=== PATIENT | female | born 1945 | race Caucasian/White ===

== ENCOUNTER 2019-12-21 21:57 | Inpatient (IN) | payer OTHER ==
--- NOTE | 2019-12-21 22:39 | PDOC ---
History of Present Illness - General Chief Complaint: Shortness of Breath Stated Complaint: SOB/CHEST PAIN Time Seen by Provider: 12/21/19 22:25 History Source: Patient - History of Present Illness Initial Comments: 74F PMH RA, HTN presenting with shortness of breath in setting of recent productive cough x4 days. Endorsing pleuritic nonradiating substernal chest pain only with deep breaths. Granddaughter sick at home. Endorses occasional nausea. Denies f/c, dysuria, abd pain. No hx COPD, asthma. Past History - Past Medical History Allergies/Adverse Reactions: Allergies Allergy/AdvReac Type Severity Reaction Status Date / Time No Known Drug Allergies Allergy Verified 12/21/19 22:06 Home Medications: Ambulatory Orders Etanercept [Enbrel Sureclick] 50 mg SQ ASDIR 12/22/19 Folic Acid 1 mg PO DAILY 12/22/19 Ibandronate Sodium [Boniva] 150 mg PO ASDIR 12/22/19 Methotrexate Sodium [Methotrexate] 2.5 mg PO ASDIR 12/22/19 Triamcinolone 0.5% Cream [Aristocort 0.5% Cream -] 1 applic TD BID 12/22/19 Anemia: No Asthma: No Cancer: No Cardiac Disorders: No CVA: No COPD: No CHF: No Dementia: No Diabetes: No GI Disorders: No Disorders: No HTN: Yes Hypercholesterolemia: Yes Liver Disease: No Seizures: Yes Thyroid Disease: No - Surgical History Abdominal Surgery: No Appendectomy: No Cardiac Surgery: No Cholecystectomy: No Lung Surgery: No Neurologic Surgery: No Orthopedic Surgery: No - Immunization History Immunization Up to Date: Yes - Psycho Social/Smoking Cessation Hx Smoking History: Never smoked Have you smoked in the past 12 months: No Hx Alcohol Use: No Drug/Substance Use Hx: No Substance Use Type: None Hx Substance Use Treatment: No Review of Systems - Review of Systems Able to Perform ROS?: Yes Comments:: CONSTITUTIONAL: Denies F / C. Endorses sick contact. HEENT: Denies changes in vision / hearing RESP: Endorses SOB, productive cough CARD: Endorses pleuritic chest pain. Denies GI: Endorses occasional N. Denies V / D, abdominal pain, bloody stool, inability to tolerate PO : Denies dysuria SKIN: Denies rashes NEURO: Denies numbness, tingling, weakness MSK: Denies back pain Is the patient limited Mauritian proficient: Yes *Physical Exam - Vital Signs Last Vital Signs Temp Pulse Resp BP Pulse Ox 96.5 F L 124 H 27 H 150/74 91 L 12/21/19 21:57 12/21/19 21:57 12/21/19 21:57 12/21/19 21:57 12/21/19 21:57 - Physical Exam GEN: Moderate distress. AAOx3. HEENT: NC/AT, EOMI, PERRL. No facial asymmetry. Moist mucous membranes. Normal voice. Supple neck w/ FROM. CV: S1/S2, tachycardic, no m/r/g LUNG: Increased work of breathing, poor/tight air movement b/l. no wheezes. GI: Soft, ndnt, +BS, no guarding, no rebound. MSK: trace LE edema. No obvious deformities of all extremities. SKIN: Warm, dry, no rashes appreciated. PSYCH: Normal mood and affect. NEURO: Moving all extremities well. ED Treatment Course - LABORATORY CBC & Chemistry Diagram: 12/26/19 05:30 12/26/19 05:30 - RADIOLOGY Radiology Studies Ordered: Category Date Time Status CHEST X-RAY PORTABLE* [RAD] Stat Radiology 12/21/19 22:36 Ordered Medical Decision Making - Medical Decision Making 12/21/19 22:37 74F c/o sob and pleuritic chest pain in setting of recent productive cough x 4 days w/ + sick contact at home. DDx - ACS, PNA, URI, flu - cbc, cmp, cardiac - ekg - cxr - duonebs 12/21/19 23:37 Increased work of breathing persists s/p duonebs x2.5 BiPap started 12/22/19 00:00 CXR by ED read - increased markings ?blunting of angles. similar to prior. 12/22/19 00:25 flu neg signed out to PM team with admission as likely dispo Discharge - Discharge Information Problems reviewed: Yes Clinical Impression/Diagnosis: NSTEMI (non-ST elevated myocardial infarction), Shortness of breath Condition: Guarded - Follow up/Referral - Patient Discharge Instructions - Post Discharge Activity
[2019-12-21] MEDS ORDERED: ALBUTEROL SO4 2.5/IPRATROPIUM 0.5 INH SOL 3 ML VIAL.NEB. NEB ONE ×2 (22:41→22:43)
--- NOTE | 2019-12-22 00:16 | PDOC ---
Documentation entered by Terrance Truong SCRIBE, acting as scribe for Nydia Escudero MD. Nydia Escudero MD: This documentation has been prepared by the Dionne pollock Angel, SCRIBE, under my direction and personally reviewed by me in its entirety. I confirm that the documentation accurately reflects all work, treatment, procedures, and medical decision making performed by me. Attending Attestation - Resident Resident Name: Gui Parham - ED Attending Attestation I have performed the following: I have examined & evaluated the patient, The case was reviewed & discussed with the resident, I agree w/resident's findings & plan, Exceptions are as noted - HPI HPI: 12/21/19 23:16 The patient is a 74 year old female with a significant PMH of HTN (no prescribed medication), HLD, Seizures and anemia who presents to the emergency department for SOB, cough and pleuritic chest pain x 4days. The patient states she has a sick family member at home. The patient denies headaches and dizziness. Denies fever, chills, nausea, vomiting, diarrhea and constipation. Allergies: NKDA - Physicial Exam PE: 12/21/19 23:17 GENERAL: Awake, alert, and fully oriented,+hypoxic HEAD: No signs of trauma NECK: Normal ROM, supple, no lymphadenopathy, JVD, or masses LUNGS: +wheezing. + tachypnic. No crackles HEART: +tachy. no murmurs, rubs or gallops ABDOMEN: Soft, nontender, normoactive bowel sounds. No guarding, no rebound. No masses EXTREMITIES: Normal range of motion, no edema. No clubbing or cyanosis. No cords, erythema, or tenderness NEUROLOGICAL: Cranial nerves II through XII grossly intact. SKIN: Warm, Dry, normal turgor, no rashes or lesions noted. - Medical Decision Making 12/22/19 01:11 This 74-year-old female who has been sick since with cough ,chest pain presented hypoxic and tachypneic tonight Troponin elevated at 0.31 and she will be admitted to telemetry EKG is sinus tach at 140 With incomplete right bundle branch block however she did receive respiratory treatments prior to ekg ADMIT to tele, nstemi,chf
[2019-12-22] MEDS ORDERED: methylPREDNISolone NA SUCC 125 MG/2 ML VIAL IVPB ONE (00:17)
[2019-12-22] MEDS ORDERED: MAGNESIUM SULF 50% (8.12 MEQ/2 ML-1 GM VIAL) IVPB ONE (00:18)
--- NOTE | 2019-12-22 00:22 | PDOC ---
*Physical Exam - Vital Signs Last Vital Signs Temp Pulse Resp BP Pulse Ox 96.5 F L 140 H 27 H 150/74 95 12/21/19 21:57 12/21/19 23:34 12/21/19 21:57 12/21/19 21:57 12/21/19 23:49 ED Treatment Course - LABORATORY CBC & Chemistry Diagram: 12/22/19 14:40 12/22/19 14:29 - Medications Given in the ED: ED Medications Discontinued Medications Generic Name Dose Route Start Last Admin Trade Name Freq PRN Reason Stop Dose Admin Albuterol/Ipratropium 2 amp 12/21/19 22:43 12/21/19 23:03 Duoneb - NEB 12/21/19 22:44 2 amp ONCE ONE Administration Medical Decision Making - Medical Decision Making 74 year old female with PMH HTN, RA presented to ED for SOB since with pleuritic chest pain and productive cough. Positive sick contact. Initial Vital Signs Temp Pulse Resp BP Pulse Ox 96.5 F L 124 H 27 H 150/74 91 L 12/21/19 21:57 12/21/19 21:57 12/21/19 21:57 12/21/19 21:57 12/21/19 21:57 Pt was given Duoneb x3 and placedon BIPAP for increased work of breathing. Influenza A (Rapid) Negative (Negative) 12/21/19 21:11 Influenza B (Rapid) Negative (Negative) 12/21/19 21:11 Pt is pending labs, EKG. Pt likely to be admitted. CXR was performed, no pneumonia was noted, pending official report. 12/22/19 01:05 EKG performed at 0041: rate 140, regular rhythm, left axis, incomplete RBBB, no acute ST changes. Pt reported improvement of labored breathing with BIPAP. SpO2 94% on BIPAP. Laboratory Last Values WBC 10.7 K/mm3 (4.0-10.0) H 12/22/19 00:15 RBC 4.02 M/mm3 (3.60-5.2) 12/22/19 00:15 Hgb 10.1 GM/dL (10.7-15.3) L 12/22/19 00:15 Hct 32.9 % (32.4-45.2) 12/22/19 00:15 MCV 81.9 fl (80-96) 12/22/19 00:15 MCH 25.2 pg (25.7-33.7) L 12/22/19 00:15 MCHC 30.8 g/dl (32.0-36.0) L 12/22/19 00:15 RDW 20.7 % (11.6-15.6) H 12/22/19 00:15 Plt Count 313 K/MM3 (134-434) D 12/22/19 00:15 MPV 8.4 fl (7.5-11.1) D 12/22/19 00:15 Absolute Neuts (auto) 9.3 K/mm3 (1.5-8.0) H 12/22/19 00:15 Neutrophils % 87.0 % (42.8-82.8) H D 12/22/19 00:15 Lymphocytes % 4.6 % (8-40) L D 12/22/19 00:15 Monocytes % 8.1 % (3.8-10.2) D 12/22/19 00:15 Eosinophils % 0.1 % (0-4.5) D 12/22/19 00:15 Basophils % 0.2 % (0-2.0) 12/22/19 00:15 Nucleated RBC % 0 % (0-0) 12/22/19 00:15 Sodium 142 mmol/L (136-145) 12/22/19 00:15 Potassium 3.8 mmol/L (3.5-5.1) 12/22/19 00:15 Chloride 104 mmol/L (98-107) 12/22/19 00:15 Carbon Dioxide 30 mmol/L (21-32) 12/22/19 00:15 Anion Gap 9 MMOL/L (8-16) 12/22/19 00:15 BUN 23.6 mg/dL (7-18) H 12/22/19 00:15 Creatinine 1.2 mg/dL (0.55-1.3) 12/22/19 00:15 Est GFR (CKD-EPI)AfAm 50.84 12/22/19 00:15 Est GFR (CKD-EPI)NonAf 43.86 12/22/19 00:15 Random Glucose 212 mg/dL (74-106) H 02/11/20 00:15 Calcium 8.4 mg/dL (8.5-10.1) L 12/22/19 00:15 Phosphorus 2.9 mg/dL (2.5-4.9) 12/22/19 00:15 Magnesium 2.3 mg/dL (1.8-2.4) 12/22/19 00:15 Total Bilirubin 0.7 mg/dL (0.2-1) 12/22/19 00:15 AST 43 U/L (15-37) H 12/22/19 00:15 ALT 26 U/L (13-61) 12/22/19 00:15 Alkaline Phosphatase 119 U/L (45-117) H 12/22/19 00:15 Creatine Kinase 87 U/L (26-192) 12/22/19 00:15 Troponin I 0.31 ng/ml (0.00-0.05) H 12/22/19 00:15 B-Natriuretic Peptide 1918.4 pg/ml (5-450) H 12/22/19 00:15 Total Protein 7.4 g/dl (6.4-8.2) 12/22/19 00:15 Albumin 2.7 g/dl (3.4-5.0) L 12/22/19 00:15 Influenza A (Rapid) Negative (Negative) 12/21/19 21:11 Influenza B (Rapid) Negative (Negative) 12/21/19 21:11 ASA 324 mg PO chew once ordered. Pt and family member at bedside informed, they agree with plan for care. Pt to be admitted for NSTEMI. Case discussed with Dr. Escudero. 12/22/19 02:00 BIPAP stopped, pt placed on 4L O2 NC. 12/22/19 03:16 Pt actively vomiting. Medications ordered: zofran 4 mg IV once Discharge - Discharge Information Problems reviewed: Yes Clinical Impression/Diagnosis: NSTEMI (non-ST elevated myocardial infarction), Shortness of breath Condition: Guarded - Admission Yes - Follow up/Referral - Patient Discharge Instructions - Post Discharge Activity
[2019-12-22 00:28] LABS: BASO % 0.2 % (0-2.0); EOS % 0.1 % (0-4.5); HEMATOCRIT 32.9 % (32.4-45.2); HEMOGLOBIN 10.1 GM/dL (10.7-15.3); LYMPH % 4.6 % (8-40); MCH 25.2 pg (25.7-33.7); MCHC 30.8 g/dl (32.0-36.0); MEAN CELL VOLUME 81.9 fl (80-96); MEAN PLT VOLUME 8.4 fl (7.5-11.1); MONO % 8.1 % (3.8-10.2); PLATELET COUNT 313 K/MM3 (134-434); RBC 4.02 M/mm3 (3.60-5.2); RDW 20.7 % (11.6-15.6); WHITE BLOOD COUNT 10.7 K/mm3 (4.0-10.0)
[2019-12-22] MEDS ORDERED: methylPREDNISolone NA SUCC 125 MG/2 ML VIAL ONE (00:31)
[2019-12-22] MEDS ORDERED: MAGNESIUM 1GM/D5W - 2 GM/200 ML IVPB IVPB ONE (00:31)
[2019-12-22 01:00] LABS: ALBUMIN 2.7 g/dl (3.4-5.0); BILIRUBIN,TOTAL 0.7 mg/dL (0.2-1); BLOOD UREA NITROGEN 23.6 mg/dL (7-18); CALCIUM 8.4 mg/dL (8.5-10.1); CREATININE 1.2 mg/dL (0.55-1.3); MAGNESIUM 2.3 mg/dL (1.8-2.4); PHOSPHOROUS 2.9 mg/dL (2.5-4.9); POTASSIUM 3.8 mmol/L (3.5-5.1); TOT PROT 7.4 g/dl (6.4-8.2)
[2019-12-22 01:03] LABS: N-TERMINAL BNP 1918.4 pg/ml (5-450)
[2019-12-22] MEDS ORDERED: ASPIRIN 81 MG CHEWABLE TABLETS PO ONE (01:11)
[2019-12-22] MEDS ORDERED: ASPIRIN 81 MG CHEWABLE TABLETS ONE (01:12)
[2019-12-22 01:48] LABS: ANISOCYTOSIS 1+
[2019-12-22 01:49] LABS: PLATELET ESTIMATE ADEQUATE
[2019-12-22] MEDS ORDERED: ACETAMINOPHEN 1000 MG/100 ML VIAL (NON FORMULARY) IVPB ONE (02:38)
[2019-12-22] MEDS ORDERED: ACETAMINOPHEN INJECTION 100 ML IVPB ONE (02:38)
--- NOTE | 2019-12-22 03:12 | HP ---
Admitting History and Physical - Admission Chief Complaint: Acute exacerbation of dyspnea, productive cough, and chest pain. History of Present Illness: This 74 yr old female with PMH of HTN, and rheumatoid arthritis admitted via ER with acute exacerbation of dyspnea, productive cough of green sputum, and chest pain. Taking remicade and/or inflixmab for treatment of rheumatoid arthritis. History Source: Family Member, Medical Record Limitations to Obtaining History: Clinical Condition - Past Medical History BARREL FINISHER: No: Alzheimer's, CVA, Dementia, Migraine, Multiple Sclerosis, Peripheral Neuropathy, Parkinson's, Seizure, Syncope, TIA, Vertigo, Other Cardiovascular: Yes: HTN Pulmonary: No: Asthma, Bronchitis, Cancer, COPD, O2 Dependent, Pneumonia, Previously Intubated, Pulmonary Embolus, Pulmonary Fibrosis, Sleep Apnea, Other Gastrointestinal: No: Ascites, Cancer, Constipation, Crohn's Disease, Diverticulitis, Diverticulosis, Esophageal Varices, Gastritis, GERD, GI Bleed, Hemorrhoids, Hiatal Hernia, Inflamatory Bowel Disease, Irritable Bowel Disease, Pancreatitis, Peptic Ulcer Disease, Ulcerative Colitis, Other Hepatobiliary: No: Cirrhosis, Cholelithiasis, Cholecystitis, Choledocholithiasis , Hepatitis A, Hepatitis B, Hepatitis C, Other Renal/: No: Renal Failure, Renal Inusuff, BPH, Cancer, Hematuria, Hemodialysis , Neurogenic Bladder, Renal Calculi, UTI, Other Reproductive: Yes: Postmenopausal Heme/Onc: No: Anemia, B12 Deficiency, Bleeding Disorder, Cancer, Current Chemotherapy, Current Radiation Therapy, Hemochromatosis, Hypercoaguable State, Myeloproliferative Synd, Sickle Cell Disease, Sickle Cell Trait, Thrombocytopenia, Other Infectious Disease: Yes: Other (GENITAL HSV) Psych: No: Addictions, Anxiety, Bipolar, Depression, Panic, Psychosis, Schizophrenia, Other Musculoskeletal: Yes: Chronic low back pain Rheumatology: Yes: Rheumatoid Arthritis ENT: No: Allergic Rhinitis, Sinusitis, Other Endocrine: No: Adan's Disease, Rima's Disease, Diabetes Insipidus, Diabetes Mellitus, Hyperparathyroidism, Hyperthyroidism, Hypothyroidism, Osteopenia, SIADH, Other Dermatology: No: Basal Cell, Cellulitis, Eczema, Melanoma, Psoriasis, Squamous Cell, Other - Past Surgical History Past Surgical History: No: None, AAA Repair, AICD, Amputation, Appendectomy, Arthrosocopy, AV Fistula/Graft, Bariatric Surgery, Breast Biopsy, Bypass, CABG, Carotid Endarterectomy, Cataract Removal, Cholecystectomy, Colectomy, Colonoscopy, Colostomy, Craniotomy, , Cystectomy, Hernia Repair, Hysterectomy, Ileal Conduit, Ileosotomy, Joint Replacement, Kidney Transplant, Laminectomy, Liver Transplant, Mastectomy, Nephrectomy, Oopherectomy, Orchiectomy, Permanent Pacemaker, Prostatectomy, Splenectomy, Stent, Thoracotomy , TURP, Tonsillectomy, Tubal Ligation, Upper Endoscopy, Valve Replacement, Vasectomy, Vein Stripping/Ligation - Smoking History Smoking history: Never smoked Have you smoked in the past 12 months: No - Alcohol/Substance Use Hx Alcohol Use: No Home Medications - Allergies Allergies/Adverse Reactions: Allergies Allergy/AdvReac Type Severity Reaction Status Date / Time No Known Drug Allergies Allergy Verified 12/21/19 22:06 - Home Medications Home Medications: Ambulatory Orders Unobtainable 12/22/19 Review of Systems - Review of Systems Constitutional: reports: Loss of Appetite, Malaise, Weakness Eyes: reports: No Symptoms HENT: reports: No Symptoms Neck: reports: No Symptoms Cardiovascular: reports: Chest Pain Respiratory: reports: Cough, SOB, SOB on Exertion, Wheezing Gastrointestinal: reports: No Symptoms Genitourinary: reports: No Symptoms Breasts: reports: No Symptoms Reported Musculoskeletal: reports: Muscle Weakness Integumentary: reports: No Symptoms Neurological: reports: Unsteady Gait, Weakness Hematology/Lymphatic: reports: No Symptoms Psychiatric: reports: No Symptoms Physical Examination Vital Signs: Vital Signs Temperature 96.5 F L 12/21/19 21:57 Pulse Rate 120 H 12/22/19 02:47 Respiratory Rate 22 H 12/22/19 02:47 Blood Pressure 116/68 12/22/19 00:56 O2 Sat by Pulse Oximetry (%) 95 12/22/19 02:47 Constitutional: Yes: Well Nourished, Moderate Distress Eyes: Yes: Conjunctiva Clear, EOM Intact HENT: Yes: Atraumatic, Normocephalic Neck: Yes: Supple, Trachea Midline Cardiovascular: Yes: Regular Rate and Rhythm, Tachycardia Respiratory: Yes: Accessory Muscle Use, Cough, Diminished, On BiPap, Orthopnea, Rhonchi, SOB, SOB on Exertion, Tachypnea, Wheezes Gastrointestinal: Yes: Normal Bowel Sounds, Soft ...Rectal Exam: Yes: Deferred Renal/: Yes: WNL Breast(s): Yes: WNL Musculoskeletal: Yes: Muscle Weakness Extremities: Yes: WNL Edema: No Peripheral Pulses WNL: Yes Peripheral Pulses: Left Radial: 2+, Right Radial: 2+, Left Doralis Pedis: 2+, Right Dorsalis Pedis: 2+, Left Femoral: 2+, Right Femoral: 2+ Integumentary: Yes: WNL Neurological: Yes: Alert, Unsteady Gait, Weakness ...Motor Strength: LUE (muscle weakness), LLE (muscle weakness), RUE (muscle weakness), RLE (muscle weakness) Psychiatric: Yes: Alert Labs: CBC, BMP 12/22/19 00:15 12/22/19 00:15 Problem List - Problems (1) NSTEMI (non-ST elevated myocardial infarction) Code(s): I21.4 - NON-ST ELEVATION (NSTEMI) MYOCARDIAL INFARCTION (2) Shortness of breath Code(s): R06.02 - SHORTNESS OF BREATH (3) Anemia Code(s): D64.9 - ANEMIA, UNSPECIFIED Qualifiers: Other causes of anemia: chronic disease, other (4) Back pain Code(s): M54.9 - DORSALGIA, UNSPECIFIED Qualifiers: Back pain location: low back pain Back pain laterality: bilateral (5) Chronic pain Code(s): G89.29 - OTHER CHRONIC PAIN (6) HTN (hypertension) Code(s): I10 - ESSENTIAL (PRIMARY) HYPERTENSION Qualifiers: Hypertension type: essential hypertension Qualified Code(s): I10 - Essential (primary) hypertension (7) Acute sepsis Code(s): A41.9 - SEPSIS, UNSPECIFIED ORGANISM (8) Acute pneumonia Code(s): J18.9 - PNEUMONIA, UNSPECIFIED ORGANISM (9) Acute respiratory failure Code(s): J96.00 - ACUTE RESPIRATORY FAILURE, UNSP W HYPOXIA OR HYPERCAPNIA Assessment/Plan Assessment/plan: acute sepsis, ?acute pneumonia, acute respiratory failure, acute dyspnea, acute productive cough, acute tachypnea, acute tachycardia, acute chest pain; IV fluids, IV Zosyn, DVT prophylaxis, physical therapy, consultation to ID and Pulmonary, oxygen via BiPap.
[2019-12-22] MEDS ORDERED: ONDANSETRON 4 MG/2 ML VIAL IVPUSH ONE (03:16)
[2019-12-22] MEDS ORDERED: ONDANSETRON 4 MG/2 ML VIAL ONE (03:17)
[2019-12-22] MEDS ORDERED: PIPERACILLIN/TAZOB 3.375 GM 3.375 GM in DEXTROSE 5%-WATER - 50 ML IVPB ONE (03:26)
[2019-12-22] MEDS ORDERED: SODIUM CHLORIDE 0.45%/POT 20 MEQ/1,000 ML INFUS.BAG IV SCH (03:45)
[2019-12-22] MEDS ORDERED: PIPERACILLIN/TAZOB 3.375 GM 3.375 GM/50 ML BAG IVPB ONE (03:46)
[2019-12-22 05:08] LABS: EOS % 0.1 % (0-4.5); HEMATOCRIT 30.8 % (32.4-45.2); HEMOGLOBIN 9.5 GM/dL (10.7-15.3); LYMPH % 5.7 % (8-40); MCH 25.2 pg (25.7-33.7); MCHC 30.8 g/dl (32.0-36.0); MEAN CELL VOLUME 81.7 fl (80-96); MEAN PLT VOLUME 8.4 fl (7.5-11.1); MONO % 1.3 % (3.8-10.2); NEUT % 92.9 % (42.8-82.8); PLATELET COUNT 272 K/MM3 (134-434); RBC 3.77 M/mm3 (3.60-5.2); RDW 21.2 % (11.6-15.6); WHITE BLOOD COUNT 9.9 K/mm3 (4.0-10.0)
[2019-12-22 05:31] LABS: ALBUMIN 2.6 g/dl (3.4-5.0); BILIRUBIN,TOTAL 0.6 mg/dL (0.2-1); BLOOD UREA NITROGEN 29.4 mg/dL (7-18); CALCIUM 8.1 mg/dL (8.5-10.1); CREATININE 1.2 mg/dL (0.55-1.3); POTASSIUM 3.9 mmol/L (3.5-5.1); TOT PROT 6.8 g/dl (6.4-8.2)
[2019-12-22 06:09] LABS: ANISOCYTOSIS 1+; MACROCYTOSIS 0; PLATELET ESTIMATE NORMAL
[2019-12-22] MEDS: SODIUM CHLORIDE 0.45%/POT 20 MEQ/1,000 ML INFUS.BAG IV SCH (07:30)
[2019-12-22] MEDS: INSULIN SLIDING SCALE (NOVOLOG) 1 VIAL SQ SCH ×3 (08:45→18:28)
[2019-12-22] MEDS ORDERED: ENOXAPARIN NA (PORCINE) 40 MG/0.4 ML DISP.SYRIN SQ ONE (10:15)
[2019-12-22] MEDS: ENOXAPARIN NA (PORCINE) 40 MG/0.4 ML DISP.SYRIN SQ SCH (10:18)
--- NOTE | 2019-12-22 12:55 | CON.CARD ---
Consult Consult Specialty:: Cardiology Referred by:: Medicine Reason for Consultation:: elevated trop - History of Present Illness Chief Complaint: cough History of Present Illness: 74F h/o HTN, RA p/w dyspnea, cough. No chest pain, palps, dizziness. - Past Medical History ROAD TESTER: No: Alzheimer's, CVA, Dementia, Migraine, Multiple Sclerosis, Peripheral Neuropathy, Parkinson's, Seizure, Syncope, TIA, Vertigo, Other Cardio/Vascular: Yes: HTN Pulmonary: No: Asthma, Bronchitis, Cancer, COPD, O2 Dependent, Pneumonia, Previously Intubated, Pulmonary Embolus, Pulmonary Fibrosis, Sleep Apnea, Other Gastrointestinal: No: Ascites, Cancer, Constipation, Crohn's Disease, Diverticulitis, Diverticulosis, Esophageal Varices, Gastritis, GERD, GI Bleed, Hemorrhoids, Hiatal Hernia, Inflamatory Bowel Disease, Irritable Bowel Disease, Pancreatitis, Peptic Ulcer Disease, Ulcerative Colitis, Other Hepatobiliary: No: Cirrhosis, Cholelithiasis, Cholecystitis, Choledocholithiasis , Hepatitis A, Hepatitis B, Hepatitis C, Other Renal/: No: Renal Failure, Renal Inusuff, BPH, Cancer, Hematuria, Hemodialysis , Neurogenic Bladder, Renal Calculi, UTI, Other Infectious Disease: Yes: Other (GENITAL HSV) Psych: No: Addictions, Anxiety, Bipolar, Depression, Panic, Psychosis, Schizophrenia, Other Musculoskeletal: Yes: Chronic low back pain Rheumatology: Yes: Rheumatoid Arthritis ENT: No: Allergic Rhinitis, Sinusitis, Other Endocrine: No: Cameron's Disease, Endicott's Disease, Diabetes Insipidus, Diabetes Mellitus, Hyperparathyroidism, Hyperthyroidism, Hypothyroidism, Osteopenia, SIADH, Other Dermatology: No: Basal Cell, Cellulitis, Eczema, Melanoma, Psoriasis, Squamous Cell, Other - Past Surgical History Past Surgical History: No: None, AAA Repair, AICD, Amputation, Appendectomy, Arthrosocopy, AV Fistula/Graft, Bariatric Surgery, Breast Biopsy, Bypass, CABG, Carotid Endarterectomy, Cataract Removal, Cholecystectomy, Colectomy, Colonoscopy, Colostomy, Craniotomy, , Cystectomy, Hernia Repair, Hysterectomy, Ileal Conduit, Ileosotomy, Joint Replacement, Kidney Transplant, Laminectomy, Liver Transplant, Mastectomy, Nephrectomy, Oopherectomy, Orchiectomy, Permanent Pacemaker, Prostatectomy, Splenectomy, Stent, Thoracotomy , TURP, Tonsillectomy, Tubal Ligation, Upper Endoscopy, Valve Replacement, Vasectomy, Vein Stripping/Ligation - Alcohol/Substance Use Hx Alcohol Use: No - Smoking History Smoking history: Never smoked Have you smoked in the past 12 months: No Home Medications - Allergies Allergies/Adverse Reactions: Allergies Allergy/AdvReac Type Severity Reaction Status Date / Time No Known Drug Allergies Allergy Verified 12/21/19 22:06 - Home Medications Home Medications: Ambulatory Orders Etanercept [Enbrel Sureclick] 50 mg SQ ASDIR 12/22/19 Folic Acid 1 mg PO DAILY 12/22/19 Ibandronate Sodium [Boniva] 150 mg PO ASDIR 12/22/19 Methotrexate Sodium [Methotrexate] 2.5 mg PO ASDIR 12/22/19 Triamcinolone 0.5% Cream [Aristocort 0.5% Cream -] 1 applic TD BID 12/22/19 Family Medical History Family History: Unremarkable Review of Systems - Review of Systems Constitutional: reports: No Symptoms Eyes: reports: No Symptoms HENT: reports: No Symptoms Neck: reports: No Symptoms Cardiovascular: reports: No Symptoms Respiratory: reports: Cough Gastrointestinal: reports: No Symptoms Genitourinary: reports: No Symptoms Musculoskeletal: reports: No Symptoms Integumentary: reports: No Symptoms Neurological: reports: No Symptoms Endocrine: reports: No Symptoms Hematology/Lymphatic: reports: No Symptoms Psychiatric: reports: No Symptoms Vital Signs: Vital Signs Temperature 98.2 F 12/22/19 07:39 Pulse Rate 107 H 12/22/19 10:42 Respiratory Rate 28 H 12/22/19 10:42 Blood Pressure 129/55 L 12/22/19 10:42 O2 Sat by Pulse Oximetry (%) 95 12/22/19 08:38 Constitutional: Yes: No Distress, Calm Eyes: Yes: Conjunctiva Clear, EOM Intact HENT: Yes: Atraumatic, Normocephalic Neck: Yes: Supple, Trachea Midline Respiratory: Yes: Regular, CTA Bilaterally Gastrointestinal: Yes: Normal Bowel Sounds, Soft Cardiovascular: Yes: Regular Rate and Rhythm Musculoskeletal: No: Back Pain Extremities: No: Cold Edema: No Integumentary: No: Jaundice Neurological: Yes: Alert, Oriented Psychiatric: No: Agitated - Other Data Labs, Other Data: CBC, BMP 12/22/19 04:45 12/22/19 04:45 Troponin, BNP 12/22/19 12/22/19 12/22/19 00:15 02:05 04:45 Troponin I 0.31 H 0.52 H 0.62 H* B-Natriuretic Peptide 1918.4 H Troponin, BNP 12/22/19 12/22/19 12/22/19 00:15 02:05 04:45 Troponin I 0.31 H 0.52 H 0.62 H* B-Natriuretic Peptide 1918.4 H Assessment/Plan EKG:sinus tach, no ischemic changes CT chest: shine pneumonic infiltrates, mild bronchiectatic changes in lower lobes , cannot exclue congestion or chronic ILD tele: sinus tach elevated trop - EKG no ischemic changes - flat trend, indeterminate range, likely demand in setting of PNA - check echo PNA - manage per primary HTN - cont home meds anemia - manage per primary
--- NOTE | 2019-12-22 13:01 | EKG ---
Test Reason : Blood Pressure : / mmHG Vent. Rate : 140 BPM Atrial Rate : 140 BPM P-R Int : 128 ms QRS Dur : 096 ms QT Int : 278 ms P-R-T Axes : 069 -57 076 degrees QTc Int : 424 ms POOR DATA QUALITY, INTERPRETATION MAY BE ADVERSELY AFFECTED SINUS TACHYCARDIA LEFT AXIS DEVIATION INCOMPLETE RIGHT BUNDLE BRANCH BLOCK ABNORMAL ECG WHEN COMPARED WITH ECG OF 30-SEP-2016 05:05, INCOMPLETE RIGHT BUNDLE BRANCH BLOCK IS NOW PRESENT Confirmed by Johan Hoyt MD ([id number]) on 12/22/2019 1:01:41 PM Referred By: Confirmed By:Johan Hoyt MD
[2019-12-22] MEDS ORDERED: AZITHROMYCIN IVPB 500 MG/250 ML BAG IVPB ONE ×2 (14:26→14:38)
[2019-12-22] MEDS ORDERED: CEFTRIAXONE 1 GM in DEXTROSE 5%-WATER - 50 ML IVPB SCH (14:30)
--- NOTE | 2019-12-22 14:34 | PN ---
Progress Note (short form) - Note Progress Note: ID consult dictated imp/reccd 74 yo female with RA on enbrel and Methotrexate now with cough and pleuritic chest ppain poor appetite no nausea or vomiting no diarrhea son at bedside confirms both grandkids were positive for influenza last week got sick middle of the week and stayed home from school and Saturday she fell ill and has continued to cough and experience weakness no hemoptysis yellow sputum one day of myalgia possible pneumonia probable influenza immunocompromised host rocephin/zithromax tamiflu resp virus PCR panel cultures urinary antigen droplet isolation (do not cohort) Problem List - Problems (1) Acute pneumonia Code(s): J18.9 - PNEUMONIA, UNSPECIFIED ORGANISM (2) Influenza Code(s): J11.1 - FLU DUE TO UNIDENTIFIED INFLUENZA VIRUS W OTH RESP MANIFEST (3) History of immunocompromised state Code(s): Z86.2 - PRSNL HISTORY OF DIS OF THE BLD/BLD-FORM ORG/IMMUN MECHNSM
--- NOTE | 2019-12-22 14:37 | EKG ---
Test Reason : Blood Pressure : / mmHG Vent. Rate : 113 BPM Atrial Rate : 113 BPM P-R Int : 146 ms QRS Dur : 100 ms QT Int : 324 ms P-R-T Axes : 068 -50 056 degrees QTc Int : 444 ms SINUS TACHYCARDIA LOW VOLTAGE QRS LEFT ANTERIOR FASCICULAR BLOCK ABNORMAL ECG WHEN COMPARED WITH ECG OF 22-DEC-2019 00:41, INCOMPLETE RIGHT BUNDLE BRANCH BLOCK IS NO LONGER PRESENT Confirmed by MD Ej, Juan A ([id number]) on 12/22/2019 2:37:10 PM Referred By: Confirmed By:Juan A Pagan MD
[2019-12-22] MEDS ORDERED: OSELTAMIVIR PHOSPHATE 75 MG CAPSULE ONE (14:38)
[2019-12-22] MEDS ORDERED: CEFTRIAXONE 1 GM/50 ML BAG ONE (14:38)
[2019-12-22] MEDS: OSELTAMIVIR PHOSPHATE 30 MG CAPSULE PO SCH ×2 (14:55→23:48)
[2019-12-22 15:05] LABS: BASO % 0.1 % (0-2.0); EOS % 0.1 % (0-4.5); HEMATOCRIT 30.9 % (32.4-45.2); HEMOGLOBIN 9.3 GM/dL (10.7-15.3); LYMPH % 7.2 % (8-40); MCH 24.7 pg (25.7-33.7); MEAN CELL VOLUME 82.6 fl (80-96); MEAN PLT VOLUME 8.6 fl (7.5-11.1); MONO % 4.7 % (3.8-10.2); NEUT % 87.9 % (42.8-82.8); PLATELET COUNT 284 K/MM3 (134-434); RBC 3.74 M/mm3 (3.60-5.2); RDW 20.7 % (11.6-15.6); WHITE BLOOD COUNT 11.7 K/mm3 (4.0-10.0)
--- NOTE | 2019-12-22 15:06 | CON.PULM ---
Consult Consult Specialty:: PULM/CCM Referred by:: HAYLEY Reason for Consultation:: SOB - History of Present Illness Chief Complaint: SOB History of Present Illness: 74 M, HTN and rheumatoid arthritis on Remicade / Inflixmab. Admitted via the ER due to worsening dyspnea, productive cough of green sputum, and chest pain. No travel history. 2 of her grandchildren had Influenza. No hemoptysis or night sweats. CT: bilateral interstitial infiltrates / air bronchgrams / consolidations - History Source History Provided By: Patient Limitations to Obtaining History: Language Barrier - Past Medical History GAMING DIRECTOR: No: Alzheimer's, CVA, Dementia, Migraine, Multiple Sclerosis, Peripheral Neuropathy, Parkinson's, Seizure, Syncope, TIA, Vertigo, Other Cardio/Vascular: Yes: HTN Pulmonary: No: Asthma, Bronchitis, Cancer, COPD, O2 Dependent, Pneumonia, Previously Intubated, Pulmonary Embolus, Pulmonary Fibrosis, Sleep Apnea, Other Gastrointestinal: No: Ascites, Cancer, Constipation, Crohn's Disease, Diverticulitis, Diverticulosis, Esophageal Varices, Gastritis, GERD, GI Bleed, Hemorrhoids, Hiatal Hernia, Inflamatory Bowel Disease, Irritable Bowel Disease, Pancreatitis, Peptic Ulcer Disease, Ulcerative Colitis, Other Hepatobiliary: No: Cirrhosis, Cholelithiasis, Cholecystitis, Choledocholithiasis , Hepatitis A, Hepatitis B, Hepatitis C, Other Renal/: No: Renal Failure, Renal Inusuff, BPH, Cancer, Hematuria, Hemodialysis , Neurogenic Bladder, Renal Calculi, UTI, Other Infectious Disease: Yes: Other (GENITAL HSV) Psych: No: Addictions, Anxiety, Bipolar, Depression, Panic, Psychosis, Schizophrenia, Other Musculoskeletal: Yes: Chronic low back pain Rheumatology: Yes: Rheumatoid Arthritis ENT: No: Allergic Rhinitis, Sinusitis, Other Endocrine: No: Adan's Disease, Tilden's Disease, Diabetes Insipidus, Diabetes Mellitus, Hyperparathyroidism, Hyperthyroidism, Hypothyroidism, Osteopenia, SIADH, Other Dermatology: No: Basal Cell, Cellulitis, Eczema, Melanoma, Psoriasis, Squamous Cell, Other - Past Surgical History Past Surgical History: No: None, AAA Repair, AICD, Amputation, Appendectomy, Arthrosocopy, AV Fistula/Graft, Bariatric Surgery, Breast Biopsy, Bypass, CABG, Carotid Endarterectomy, Cataract Removal, Cholecystectomy, Colectomy, Colonoscopy, Colostomy, Craniotomy, , Cystectomy, Hernia Repair, Hysterectomy, Ileal Conduit, Ileosotomy, Joint Replacement, Kidney Transplant, Laminectomy, Liver Transplant, Mastectomy, Nephrectomy, Oopherectomy, Orchiectomy, Permanent Pacemaker, Prostatectomy, Splenectomy, Stent, Thoracotomy , TURP, Tonsillectomy, Tubal Ligation, Upper Endoscopy, Valve Replacement, Vasectomy, Vein Stripping/Ligation - Alcohol/Substance Use Hx Alcohol Use: No - Smoking History Smoking history: Never smoked Have you smoked in the past 12 months: No Home Medications - Allergies Allergies/Adverse Reactions: Allergies Allergy/AdvReac Type Severity Reaction Status Date / Time No Known Drug Allergies Allergy Verified 12/21/19 22:06 - Home Medications Home Medications: Ambulatory Orders Etanercept [Enbrel Sureclick] 50 mg SQ ASDIR 12/22/19 Folic Acid 1 mg PO DAILY 12/22/19 Ibandronate Sodium [Boniva] 150 mg PO ASDIR 12/22/19 Methotrexate Sodium [Methotrexate] 2.5 mg PO ASDIR 12/22/19 Triamcinolone 0.5% Cream [Aristocort 0.5% Cream -] 1 applic TD BID 12/22/19 Review of Systems - Review of Systems Constitutional: reports: Fever, Malaise. denies: Chills, Night Sweats Eyes: reports: No Symptoms HENT: reports: No Symptoms Cardiovascular: reports: Edema, Shortness of Breath. denies: Chest Pain, Palpitations Respiratory: reports: Cough, SOB, SOB on Exertion. denies: Hemoptysis, Snoring , Wheezing Gastrointestinal: reports: No Symptoms Genitourinary: reports: No Symptoms Breasts: reports: No Symptoms Reported Musculoskeletal: reports: No Symptoms Integumentary: reports: No Symptoms Neurological: reports: No Symptoms Endocrine: reports: No Symptoms Hematology/Lymphatic: reports: No Symptoms Psychiatric: reports: No Symptoms Physical Exam Vital Sings: Vital Signs Temperature 98.2 F 12/22/19 07:39 Pulse Rate 107 H 12/22/19 10:42 Respiratory Rate 28 H 12/22/19 10:42 Blood Pressure 129/55 L 12/22/19 10:42 O2 Sat by Pulse Oximetry (%) 95 12/22/19 08:38 Constitutional: Yes: No Distress Eyes: Yes: Conjunctiva Clear, EOM Intact HENT: Yes: Atraumatic, Normocephalic Neck: Yes: Supple, Trachea Midline Cardiovascular: Yes: Regular Rate and Rhythm Respiratory: Yes: Cough, Diminished, On Nasal O2, Rhonchi, SOB, SOB on Exertion , Tachypnea. No: Accessory Muscle Use, Rales, Stridor, Wheezes ...Inspection: Yes: WNL ...Clubbing: No Gastrointestinal: Yes: Normal Bowel Sounds, Soft Renal/: Yes: WNL Musculoskeletal: Yes: WNL Extremities: Yes: WNL Edema: No Peripheral Pulses WNL: Yes Integumentary: Yes: WNL Neurological: Yes: WNL, Alert, Oriented ...Motor Strength: WNL Psychiatric: Yes: WNL, Alert, Oriented Imaging - Results Chest X-ray: Report Reviewed, Image Reviewed Cat Scan: Report Reviewed, Image Reviewed Problem List - Problems (1) Influenza Code(s): J11.1 - FLU DUE TO UNIDENTIFIED INFLUENZA VIRUS W OTH RESP MANIFEST (2) Acute pneumonia Code(s): J18.9 - PNEUMONIA, UNSPECIFIED ORGANISM (3) Shortness of breath Code(s): R06.02 - SHORTNESS OF BREATH (4) Anemia Code(s): D64.9 - ANEMIA, UNSPECIFIED Qualifiers: Other causes of anemia: chronic disease, other (5) Back pain Code(s): M54.9 - DORSALGIA, UNSPECIFIED Qualifiers: Back pain location: low back pain Back pain laterality: bilateral (6) Chronic pain Code(s): G89.29 - OTHER CHRONIC PAIN (7) HTN (hypertension) Code(s): I10 - ESSENTIAL (PRIMARY) HYPERTENSION Qualifiers: Hypertension type: essential hypertension Qualified Code(s): I10 - Essential (primary) hypertension (8) Spinal stenosis Code(s): M48.00 - SPINAL STENOSIS, SITE UNSPECIFIED Qualifiers: Spinal region: lumbosacral Qualified Code(s): M48.07 - Spinal stenosis, lumbosacral region Assessment/Plan Tamiflu ABX O2 Supplementation as needed VTE prophylaxis Sputum culture Urine antigen Will need repeat imaging as an outpatient to ensure resolution of infiltrates in this immunocompromised host Will follow Thank you Dr Hewitt
[2019-12-22 15:31] LABS: ALBUMIN 2.4 g/dl (3.4-5.0); BILIRUBIN,TOTAL 0.6 mg/dL (0.2-1); BLOOD UREA NITROGEN 28.4 mg/dL (7-18); CALCIUM 7.9 mg/dL (8.5-10.1); CREATININE 0.9 mg/dL (0.55-1.3); POTASSIUM 3.9 mmol/L (3.5-5.1); TOT PROT 6.8 g/dl (6.4-8.2)
[2019-12-22] MEDS ORDERED: ACETAMINOPHEN 325 MG TABLET (FP) ONE (15:48)
[2019-12-22] MEDS: ACETAMINOPHEN 325 MG TABLET (FP) PO PRN (16:08)
--- NOTE | 2019-12-22 19:32 | CONS ---
DATE OF CONSULTATION: DATE OF DICTATION: 12/22/2019 INFECTIOUS DISEASE CONSULTATION HISTORY OF PRESENT ILLNESS: This is a 74-year-old woman with a past medical history of rheumatoid arthritis. She is on Enbrel, methotrexate. She presents with cough and pleuritic chest pain, poor appetite. No nausea, vomiting. No diarrhea. Per her son, her symptoms started at the end of last week. Last week as well his 2 children tested positive for influenza and stayed home from school and Saturday and through the weekend. She is actively involved in the care of his kids. She developed a cough on -Saturday which progressed with yellow sputum, no hemoptysis. She reports having 1 day of myalgia. She denies any fever. She came to the emergency room. She was hypoxic and required BiPAP. She is currently on oxygen. She does not use oxygen at home. She notes that she has pleuritic chest pain when she coughs. PAST MEDICAL HISTORY: Notable for hypertension, rheumatoid arthritis. She is followed by Dr. King for her rheumatoid arthritis and is on Enbrel and methotrexate. She is followed by Dr. Schneider for her medical care. SOCIAL HISTORY: She lives alone, and she drives a car. She does not have any oxygen at home. She has had no recent admissions to the hospital, and there is no history of any illicit substance use. REVIEW OF SYSTEMS: There is weight loss, malaise, and weakness. Overall fatigue and a degree of hypoxia requiring oxygen. PHYSICAL EXAMINATION: General: She is a pleasant woman, alert. Vital Signs: Temperature is 98.7, pulse of 107, blood pressure 129/50, prior respiratory rate was 28. She is saturating 91% on 4 L. HEENT: Normocephalic. Eyes are anicteric. Neck: Supple. Lungs: She has scattered rhonchi throughout her lungs. Heart: Regular rate and rhythm. Abdomen: Soft. Extremities: Without edema. LABORATORY: Notable for white count of 7.7, hemoglobin of 9.3, platelets of 284. BUN and creatinine are 28 and 0.9. Her influenza screen by antigen testing is negative. Blood cultures have been sent, and CAT scan of the chest is notable for bilateral interstitial thickening with nodularity and airspace opacity suggestive of pneumonia. IMPRESSION: In summary, this is a 74-year-old woman with pneumonia, probable influenza, given her close contacts with her grandchildren and an immunocompromised host by virtue of her medications for her rheumatoid arthritis. As well she is hypoxic. I would treat her empirically with Tamiflu . Would obtain a respiratory virus PCR panel. Cultures and urinary antigens. Would maintain droplet isolation. Further recommendations to follow. JOSEP LORENZO M.D. MARIEL/[id number]
[2019-12-23] MEDS: INSULIN SLIDING SCALE (NOVOLOG) 1 VIAL SQ SCH ×3 (06:34→17:52)
[2019-12-23] MEDS: SODIUM CHLORIDE 0.45%/POT 20 MEQ/1,000 ML INFUS.BAG IV SCH (06:35)
[2019-12-23 07:37] LABS: BASO % 0.1 % (0-2.0); HEMATOCRIT 28.9 % (32.4-45.2); HEMOGLOBIN 8.7 GM/dL (10.7-15.3); LYMPH % 7.8 % (8-40); MCH 25.1 pg (25.7-33.7); MCHC 30.2 g/dl (32.0-36.0); MEAN CELL VOLUME 83.4 fl (80-96); MEAN PLT VOLUME 8.5 fl (7.5-11.1); MONO % 5.1 % (3.8-10.2); PLATELET COUNT 278 K/MM3 (134-434); RBC 3.46 M/mm3 (3.60-5.2); RDW 20.7 % (11.6-15.6); WHITE BLOOD COUNT 11.4 K/mm3 (4.0-10.0)
[2019-12-23 08:10] LABS: ALBUMIN 2.2 g/dl (3.4-5.0); BILIRUBIN,TOTAL 0.3 mg/dL (0.2-1); CALCIUM 8.2 mg/dL (8.5-10.1); CREATININE 0.8 mg/dL (0.55-1.3); POTASSIUM 4.5 mmol/L (3.5-5.1); TOT PROT 6.2 g/dl (6.4-8.2)
[2019-12-23] MEDS ORDERED: PT OWN MED DRAWER 7, Y5N ONE ×3 (10:24→21:02)
[2019-12-23] MEDS: ENOXAPARIN NA (PORCINE) 40 MG/0.4 ML DISP.SYRIN SQ SCH (10:32)
[2019-12-23] MEDS: OSELTAMIVIR PHOSPHATE 30 MG CAPSULE PO SCH ×2 (10:33→22:58)
--- NOTE | 2019-12-23 10:43 | EKG ---
Test Reason : Blood Pressure : / mmHG Vent. Rate : 107 BPM Atrial Rate : 107 BPM P-R Int : 142 ms QRS Dur : 094 ms QT Int : 320 ms P-R-T Axes : 061 -44 032 degrees QTc Int : 427 ms POOR DATA QUALITY, INTERPRETATION MAY BE ADVERSELY AFFECTED SINUS TACHYCARDIA LEFT AXIS DEVIATION PULMONARY DISEASE PATTERN ABNORMAL ECG WHEN COMPARED WITH ECG OF 22-DEC-2019 04:14, NO SIGNIFICANT CHANGE WAS FOUND Confirmed by Johan Hoyt MD ([id number]) on 12/23/2019 10:43:28 AM Referred By: Confirmed By:Johan Hoyt MD
--- NOTE | 2019-12-23 11:00 | PN ---
Progress Note (short form) - Note Progress Note: s: no chest pain, dypsnea, palps, dizziness. stable cough Current Medications Acetaminophen (Tylenol -) 650 mg PO Q6H PRN PRN Reason: MODERATE PAIN Last Admin: 12/22/19 16:08 Dose: 650 mg Enoxaparin Sodium (Lovenox -) 40 mg SQ DAILY [facility] Last Admin: 12/23/19 10:32 Dose: 40 mg Potassium Chloride/Sodium Chloride (1/2ns+20meq Kcl) 20 meq in 1,000 mls @ 42 mls/hr IV ASDIR JANI Last Admin: 12/23/19 06:35 Dose: 42 mls/hr Cefepime HCl 2 gm/ Dextrose 100 mls @ 100 mls/hr IVPB Q8H-IV JANI; Protocol Insulin Aspart (Novolog Vial Sliding Scale -) 1 vial SQ TIDAC JANI; Protocol Last Admin: 12/23/19 06:34 Dose: Not Given Oseltamivir Phosphate (Tamiflu -) 30 mg PO BID [facility] Stop: 12/27/19 14:27 Last Admin: 12/23/19 10:33 Dose: 30 mg Vital Signs Period Temp Pulse Resp BP Sys/Anand Pulse Ox Last 24 Hr 97.5 F-98.7 F 89-112 18-26 107-141/53-98 91-99 Constitutional: Yes: No Distress, Calm Eyes: Yes: Conjunctiva Clear, EOM Intact HENT: Yes: Atraumatic, Normocephalic Neck: Yes: Supple, Trachea Midline Respiratory: Yes: Regular, CTA Bilaterally Gastrointestinal: Yes: Normal Bowel Sounds, Soft Cardiovascular: Yes: Regular Rate and Rhythm Musculoskeletal: No: Back Pain Extremities: No: Cold Edema: No Integumentary: No: Jaundice Neurological: Yes: Alert, Oriented Psychiatric: No: Agitated EKG:sinus tach, no ischemic changes CT chest: shine pneumonic infiltrates, mild bronchiectatic changes in lower lobes , cannot exclue congestion or chronic ILD tele: sinus tach elevated trop - EKG no ischemic changes - flat trend, indeterminate range, likely demand in setting of PNA - echo pending PNA, flu - manage per primary HTN - cont home meds anemia - manage per primary
--- NOTE | 2019-12-23 11:06 | PN ---
Progress Note (short form) - Note Progress Note: oob in chair ruq discomfort reports her doctor tells her she has blood in her urine Vital Signs Period Temp Pulse Resp BP Sys/Anand Pulse Ox Last 24 Hr 97.5 F-98.7 F 89-112 18-26 107-141/53-98 91-99 cor-rrr lungs decreased bs at bases abd soft,nt ext no edema CBC, BMP 12/23/19 06:58 12/23/19 06:58 Microbiology 12/21/19 23:24 Blood - Peripheral Venous Blood Culture - Preliminary Pending Organism 12/21/19 23:24 Blood - Peripheral Venous Blood Culture - Preliminary Pending Organism a/p gram negative bacteremia ?source- reports hematuria as outpt ruq pain, will get sonogram, r/o biliary disease ua and urine culture switch to cefepime continue tamiflu for influenza (empiric) RA- immunocompromised host (by virtue of meds)
--- NOTE | 2019-12-23 11:13 | PN ---
Progress Note, Physician History of Present Illness: pulmonary alert,feeling better,oob-chair,less dyspneic,less cough. BLOOD C+ S GRAM NEG BACILLI - Current Medication List Current Medications: Active Medications Acetaminophen (Tylenol -) 650 mg PO Q6H PRN PRN Reason: MODERATE PAIN Last Admin: 12/22/19 16:08 Dose: 650 mg Enoxaparin Sodium (Lovenox -) 40 mg SQ DAILY [facility] Last Admin: 12/23/19 10:32 Dose: 40 mg Potassium Chloride/Sodium Chloride (1/2ns+20meq Kcl) 20 meq in 1,000 mls @ 42 mls/hr IV ASDIR JANI Last Admin: 12/23/19 06:35 Dose: 42 mls/hr Cefepime HCl 2 gm/ Dextrose 100 mls @ 100 mls/hr IVPB Q8H-IV JANI; Protocol Insulin Aspart (Novolog Vial Sliding Scale -) 1 vial SQ TIDAC JANI; Protocol Last Admin: 12/23/19 06:34 Dose: Not Given Oseltamivir Phosphate (Tamiflu -) 30 mg PO BID [facility] Stop: 12/27/19 14:27 Last Admin: 12/23/19 10:33 Dose: 30 mg - Objective Vital Signs: Vital Signs Temperature 97.8 F 12/23/19 08:42 Pulse Rate 99 H 12/23/19 08:42 Respiratory Rate 19 12/23/19 08:42 Blood Pressure 115/58 L 12/23/19 08:42 O2 Sat by Pulse Oximetry (%) 96 12/23/19 00:22 Constitutional: Yes: Well Nourished, Calm Eyes: Yes: WNL HENT: Yes: WNL Neck: Yes: WNL Cardiovascular: Yes: Regular Rate and Rhythm, S1, S2 Respiratory: Yes: Rhonchi (scattered shine rhonchi) Gastrointestinal: Yes: Normal Bowel Sounds, Soft Extremities: Yes: WNL Edema: No Labs: CBC, BMP 12/23/19 06:58 12/23/19 06:58 Assessment/Plan Problem List - Problems (1) Influenza Code(s): J11.1 - FLU DUE TO UNIDENTIFIED INFLUENZA VIRUS W OTH RESP MANIFEST (2) Acute pneumonia Code(s): J18.9 - PNEUMONIA, UNSPECIFIED ORGANISM (3) Shortness of breath Code(s): R06.02 - SHORTNESS OF BREATH (4) Anemia Code(s): D64.9 - ANEMIA, UNSPECIFIED Qualifiers: Other causes of anemia: chronic disease, other (5) Back pain Code(s): M54.9 - DORSALGIA, UNSPECIFIED Qualifiers: Back pain location: low back pain Back pain laterality: bilateral (6) Chronic pain Code(s): G89.29 - OTHER CHRONIC PAIN (7) HTN (hypertension) Code(s): I10 - ESSENTIAL (PRIMARY) HYPERTENSION Qualifiers: Hypertension type: essential hypertension Qualified Code(s): I10 - Essential (primary) hypertension (8) Spinal stenosis Code(s): M48.00 - SPINAL STENOSIS, SITE UNSPECIFIED Qualifiers: Spinal region: lumbosacral Qualified Code(s): M48.07 - Spinal stenosis, lumbosacral region 9 BACTEREMIA Assessment/Plan Tamiflu ABX as per ID O2 VTE prophylaxis Will need repeat imaging as an outpatient to ensure resolution of infiltrates in this immunocompromised host DR MOTA
[2019-12-23] MEDS: CEFEPIME 2 GM in DEXTROSE 5%-WATER 100 ML IVPB SCH ×2 (11:34→17:51)
--- NOTE | 2019-12-23 12:13 | ECHO ---
Version: 1 Name: KAI MARSH Exam: Adult Echocardiogram Study Date: 12/23/2019, 9:31 AM Age: 74 Years MMode/2D Measurements & Calculations IVSd: 0.88 cm LVIDs: 2.7 cm LVIDd: 4.1 cm LVPWd: 0.91 cm LAV (MOD-bp): 57.1 ml LVOT diam: 1.77 cm Ao root diam: 3.2 cm LA dimension: 3.7 cm Doppler Measurements & Calculations MV E max jamey: 66.5 cm/sec Med E/e': 7.4 MV A max jamey: 101.4 cm/sec Med Peak E' Jamey: 9.0 cm/sec MV E/A: 0.66 Lat E/e': 7.3 Lat Peak E' Jamey: 9.1 cm/sec Ao max P.7 mmHg Ao V2 max: 143.0 cm/sec TR max jamey: 322.1 cm/sec TR max P.0 mmHg Procedure A complete two-dimensional transthoracic echocardiogram was performed (2D, M-mode, Doppler and color flow Doppler). The patient was in a tachycardic rhythm during the exam. Left Ventricle The left ventricular size, thickness and function are normal. The left ventricular ejection fraction is normal. Ejection Fraction = 60%. E/A reversal consistent with but not diagnostic of poor LV complian ce. Paradoxical septal motion is consistent with right ventricular volume overload. Right Ventricle The right ventricle is mildly dilated. The right ventricular systolic function is normal. Atria Normal left and right atrial size and function. Mitral Valve There is mild mitral annular calcification. There is trace mitral regurgitation. Tricuspid Valve The tricuspid valve is normal in structure and function. There is moderate tricuspid regurgitation. Right ventricular systolic pressure is elevated at 45 mmhg. Assuming the RA pressure is 5 mmHg. There is m ild pulmonary hypertension. Aortic Valve There is mild aortic valve thickening. Trace aortic regurgitation. Pulmonic Valve The pulmonic valve is normal in structure and function. Trace pulmonic valvular regurgitation. Great Vessels The aortic root is normal size. Pericardium/Pleura There is no pericardial effusion. There is no pleural effusion. Summary Statements The patient was in a tachycardic rhythm during the exam. The left ventricular size, thickness and function are normal The left ventricular ejection fraction is normal. Ejection Fraction = 60%. Paradoxical septal motion is consistent with right ventricular volume overload. The right ventricle is mildly dilated. The right ventricular systolic function is normal. There is mild mitral annular calcification. There is trace mitral regurgitation. There is moderate tricuspid regurgitation. Right ventricular systolic pressure is elevated at 45 mmhg. There is mild pulmonary hypertension. There is mild aortic valve thickening. Trace aortic regurgitation. Trace pulmonic valvular regurgitation. MD Johan Hoyt 12/23/2019, 12:12 PM Ordering Physician: THERESE GREENE Referring Physician: THERESE GREENE Performed By: Lisette Olson
[2019-12-23] MEDS: ACETAMINOPHEN 325 MG TABLET (FP) PO PRN (16:17)
--- NOTE | 2019-12-23 16:17 | PN ---
Progress Note, Physician Chief Complaint: Patient seen and examined at the bedside, cough, right sided chest pain during coughing and inspiration. - Current Medication List Current Medications: Active Medications Acetaminophen (Tylenol -) 650 mg PO Q6H PRN PRN Reason: MODERATE PAIN Last Admin: 12/22/19 16:08 Dose: 650 mg Enoxaparin Sodium (Lovenox -) 40 mg SQ DAILY [facility] Last Admin: 12/23/19 10:32 Dose: 40 mg Potassium Chloride/Sodium Chloride (1/2ns+20meq Kcl) 20 meq in 1,000 mls @ 42 mls/hr IV ASDIR JANI Last Admin: 12/23/19 06:35 Dose: 42 mls/hr Cefepime HCl 2 gm/ Dextrose 100 mls @ 100 mls/hr IVPB Q8H-IV JANI; Protocol Last Admin: 12/23/19 11:34 Dose: 100 mls/hr Insulin Aspart (Novolog Vial Sliding Scale -) 1 vial SQ TIDAC [facility]; Protocol Last Admin: 12/23/19 11:49 Dose: 2 unit Oseltamivir Phosphate (Tamiflu -) 30 mg PO BID [facility] Stop: 12/27/19 14:27 Last Admin: 12/23/19 10:33 Dose: 30 mg - Objective Vital Signs: Vital Signs Temperature 98.1 F 12/23/19 14:10 Pulse Rate 90 12/23/19 14:10 Respiratory Rate 17 12/23/19 14:10 Blood Pressure 112/62 12/23/19 14:10 O2 Sat by Pulse Oximetry (%) 95 12/23/19 09:00 Constitutional: Yes: Well Nourished, Anxious, Mild Distress Eyes: Yes: Conjunctiva Clear, EOM Intact HENT: Yes: Atraumatic, Normocephalic Neck: Yes: Supple, Trachea Midline Cardiovascular: Yes: Regular Rate and Rhythm, Murmur, Other (moderate tricuspid regurgitation) Respiratory: Yes: Regular, On Nasal O2, Rhonchi Gastrointestinal: Yes: Normal Bowel Sounds, Soft ...Rectal Exam: Yes: Deferred Genitourinary: Yes: WNL Breast(s): Yes: WNL Musculoskeletal: Yes: Muscle Weakness Extremities: Yes: WNL Edema: No Peripheral Pulses WNL: Yes Integumentary: Yes: WNL Neurological: Yes: Alert, Weakness ...Motor Strength: LLE (muscle weakness), RLE (muscle weakness) Psychiatric: Yes: Alert Labs: CBC, BMP 12/23/19 06:58 12/23/19 06:58 - ....Imaging Other: Report Reviewed (Lab data reviewed) Problem List - Problems (1) NSTEMI (non-ST elevated myocardial infarction) Code(s): I21.4 - NON-ST ELEVATION (NSTEMI) MYOCARDIAL INFARCTION (2) Shortness of breath Code(s): R06.02 - SHORTNESS OF BREATH (3) Anemia Code(s): D64.9 - ANEMIA, UNSPECIFIED Qualifiers: Other causes of anemia: chronic disease, other (4) Back pain Code(s): M54.9 - DORSALGIA, UNSPECIFIED Qualifiers: Back pain location: low back pain Back pain laterality: bilateral (5) Chronic pain Code(s): G89.29 - OTHER CHRONIC PAIN (6) HTN (hypertension) Code(s): I10 - ESSENTIAL (PRIMARY) HYPERTENSION Qualifiers: Hypertension type: essential hypertension Qualified Code(s): I10 - Essential (primary) hypertension (7) Acute sepsis Code(s): A41.9 - SEPSIS, UNSPECIFIED ORGANISM (8) Acute pneumonia Code(s): J18.9 - PNEUMONIA, UNSPECIFIED ORGANISM (9) Acute respiratory failure Code(s): J96.00 - ACUTE RESPIRATORY FAILURE, UNSP W HYPOXIA OR HYPERCAPNIA (10) Neutrophilic leukocytosis Code(s): D72.9 - DISORDER OF WHITE BLOOD CELLS, UNSPECIFIED (11) Chest pain Code(s): R07.9 - CHEST PAIN, UNSPECIFIED Assessment/Plan Assessment/plan: acute bilateral pneumonia, acute sepsis, acute dyspnea and hypoxemia, acute anemia; IV fluids, IV Cefepime as per ID, DVT prophylaxis, physical therapy, SCDS, discussed clinical condition of the patient with daughter Eleanor Velarde.
[2019-12-23 16:58] LABS: EPI CELLS 8.4 /HPF (0-5/HPF); HYALINE CASTS 6 /lpf (0-8); PH,URINE 6.5 (5.0-8.0); URINE APPEARANCE CLEAR; URINE BACTERIA 24.1 /hpf (NEGATIVE); URINE BILIRUBIN NEGATIVE (NEGATIVE); URINE COLOR YELLOW; URINE GLUCOSE (UA) NEGATIVE (NEGATIVE); URINE KETONE NEGATIVE (NEGATIVE); URINE LEUK ESTERASE 1+ (NEGATIVE); URINE NITRITE NEGATIVE (NEGATIVE); URINE PROTEIN 1+ (NEGATIVE); URINE RBC 8 /hpf (0-4); URINE WBC 8 /hpf (0-5)
[2019-12-24] MEDS ORDERED: PT OWN MED DRAWER 7, Y5N ONE ×4 (02:53→20:53)
[2019-12-24] MEDS: CEFEPIME 2 GM in DEXTROSE 5%-WATER 100 ML IVPB SCH ×2 (02:54→09:11)
[2019-12-24] MEDS: INSULIN SLIDING SCALE (NOVOLOG) 1 VIAL SQ SCH ×3 (06:02→17:24)
[2019-12-24 06:59] LABS: BASO % 0.2 % (0-2.0); EOS % 0.4 % (0-4.5); HEMATOCRIT 31.6 % (32.4-45.2); HEMOGLOBIN 9.8 GM/dL (10.7-15.3); LYMPH % 20.4 % (8-40); MCH 25.3 pg (25.7-33.7); MEAN CELL VOLUME 81.8 fl (80-96); MEAN PLT VOLUME 8.7 fl (7.5-11.1); MONO % 8.4 % (3.8-10.2); NEUT % 70.6 % (42.8-82.8); PLATELET COUNT 332 K/MM3 (134-434); RBC 3.87 M/mm3 (3.60-5.2); RDW 20.8 % (11.6-15.6)
[2019-12-24] MEDS: ACETAMINOPHEN 325 MG TABLET (FP) PO PRN (09:10)
[2019-12-24] MEDS: ENOXAPARIN NA (PORCINE) 40 MG/0.4 ML DISP.SYRIN SQ SCH (09:10)
[2019-12-24] MEDS: OSELTAMIVIR PHOSPHATE 30 MG CAPSULE PO SCH ×2 (09:13→21:35)
--- NOTE | 2019-12-24 10:25 | PN ---
Progress Note (short form) - Note Progress Note: s: no chest pain, dypsnea, palps, dizziness. stable cough Current Medications Generic Name Dose Route Start Last Admin Trade Name Ajay PRN Reason Stop Dose Admin Acetaminophen 650 mg 12/22/19 15:43 12/24/19 09:10 Tylenol - PO 650 mg Q6H PRN Administration MODERATE PAIN Enoxaparin Sodium 40 mg 12/22/19 10:00 12/24/19 09:10 Lovenox - SQ 40 mg DAILY JANI Administration Cefepime HCl 2 gm/ Dextrose 100 mls @ 100 mls/hr 12/23/19 10:15 12/24/19 09: 11 IVPB 100 mls/hr Q8H-IV JANI Administration Protocol Insulin Aspart 1 vial 12/22/19 07:00 12/24/19 06:02 Novolog Vial Sliding Scale - SQ Not Given TIDAC JANI Protocol Oseltamivir Phosphate 30 mg 12/22/19 14:28 12/24/19 09:13 Tamiflu - PO 12/27/19 14:27 30 mg BID JANI Administration Vital Signs Period Temp Pulse Resp BP Sys/Anand Pulse Ox Last 24 Hr 97.4 F-98.2 F 90-101 17-20 112-141/60-71 98 Constitutional: Yes: No Distress, Calm Eyes: Yes: Conjunctiva Clear Respiratory: Yes: Regular, CTA Bilaterally Gastrointestinal: Yes: Normal Bowel Sounds, Soft Cardiovascular: Yes: Regular Rate and Rhythm Musculoskeletal: No: Back Pain Extremities: No: Cold Edema: No Integumentary: No: Jaundice Neurological: Yes: Alert, Oriented Psychiatric: No: Agitated CBC, BMP 12/24/19 05:25 12/23/19 06:58 EKG:sinus tach, no ischemic changes CT chest: shine pneumonic infiltrates, mild bronchiectatic changes in lower lobes , cannot exclue congestion or chronic ILD tele: sinus tach, sinus elevated trop - EKG no ischemic changes - flat trend, indeterminate range, likely demand in setting of PNA, no signs acs - echo with nl lvef, no sig valve abnormalities PNA, flu - manage per primary HTN - cont home meds anemia - manage per primary
--- NOTE | 2019-12-24 11:07 | PN ---
Progress Note, Physician History of Present Illness: PULMONARY ALERT,LESS DYSPNEIC,+ COUGH - Current Medication List Current Medications: Active Medications Acetaminophen (Tylenol -) 650 mg PO Q6H PRN PRN Reason: MODERATE PAIN Last Admin: 12/24/19 09:10 Dose: 650 mg Enoxaparin Sodium (Lovenox -) 40 mg SQ DAILY [facility] Last Admin: 12/24/19 09:10 Dose: 40 mg Cefepime HCl 2 gm/ Dextrose 100 mls @ 100 mls/hr IVPB Q8H-IV [facility]; Protocol Last Admin: 12/24/19 09:11 Dose: 100 mls/hr Insulin Aspart (Novolog Vial Sliding Scale -) 1 vial SQ TIDAC [facility]; Protocol Last Admin: 12/24/19 06:02 Dose: Not Given Oseltamivir Phosphate (Tamiflu -) 30 mg PO BID [facility] Stop: 12/27/19 14:27 Last Admin: 12/24/19 09:13 Dose: 30 mg - Objective Vital Signs: Vital Signs Temperature 97.4 F L 12/24/19 09:18 Pulse Rate 94 H 12/24/19 09:18 Respiratory Rate 12/24/19 09:18 Blood Pressure 141/71 12/24/19 09:18 O2 Sat by Pulse Oximetry (%) 98 12/23/19 21:00 Constitutional: Yes: Well Nourished, Calm Eyes: Yes: WNL HENT: Yes: WNL Neck: Yes: WNL Cardiovascular: Yes: Regular Rate and Rhythm, S1, S2 Respiratory: Yes: Rhonchi (FEW SCATTERED RHONCHI) Gastrointestinal: Yes: Normal Bowel Sounds, Soft Extremities: Yes: WNL Edema: No Labs: CBC, BMP 12/24/19 05:25 12/23/19 06:58 Assessment/Plan Problem List - Problems (1) Influenza Code(s): J11.1 - FLU DUE TO UNIDENTIFIED INFLUENZA VIRUS W OTH RESP MANIFEST (2) Acute pneumonia Code(s): J18.9 - PNEUMONIA, UNSPECIFIED ORGANISM (3) Shortness of breath Code(s): R06.02 - SHORTNESS OF BREATH (4) Anemia Code(s): D64.9 - ANEMIA, UNSPECIFIED Qualifiers: Other causes of anemia: chronic disease, other (5) Back pain Code(s): M54.9 - DORSALGIA, UNSPECIFIED Qualifiers: Back pain location: low back pain Back pain laterality: bilateral (6) Chronic pain Code(s): G89.29 - OTHER CHRONIC PAIN (7) HTN (hypertension) Code(s): I10 - ESSENTIAL (PRIMARY) HYPERTENSION Qualifiers: Hypertension type: essential hypertension Qualified Code(s): I10 - Essential (primary) hypertension (8) Spinal stenosis Code(s): M48.00 - SPINAL STENOSIS, SITE UNSPECIFIED Qualifiers: Spinal region: lumbosacral Qualified Code(s): M48.07 - Spinal stenosis, lumbosacral region 9 BACTEREMIA Assessment/Plan Tamiflu ABX as per ID O2 VTE prophylaxis Will need repeat imaging as an outpatient to ensure resolution of infiltrates in this immunocompromised host inhaled bronchodilators DR MOTA
[2019-12-24 11:13] LABS: ANISOCYTOSIS 2+; MACROCYTOSIS 0; OVALOCYTE 1+; PLATELET ESTIMATE NORMAL; TARGET CELLS 1+; TEAR DROP CELLS 1+; TOXIC GRANULATION 1+
--- NOTE | 2019-12-24 12:32 | PN ---
Progress Note, Physician Chief Complaint: Patient seen and examined at the bedside, diminution of dyspnea, History of Present Illness: This 74 yr old female with hx of rheumatoid arthritis, and HTN admitted via ER with an acute cough productive of green sputum, acute dyspnea, and acute right lower anterior chest pain. On remicade and inflixmab for treatment of rheumatoid arthritis. - Current Medication List Current Medications: Active Medications Acetaminophen (Tylenol -) 650 mg PO Q6H PRN PRN Reason: MODERATE PAIN Last Admin: 12/24/19 09:10 Dose: 650 mg Albuterol/Ipratropium (Duoneb -) 1 amp NEB RQID [facility] Enoxaparin Sodium (Lovenox -) 40 mg SQ DAILY [facility] Last Admin: 12/24/19 09:10 Dose: 40 mg Cefepime HCl 2 gm/ Dextrose 100 mls @ 100 mls/hr IVPB Q8H-IV [facility]; Protocol Last Admin: 12/24/19 09:11 Dose: 100 mls/hr Insulin Aspart (Novolog Vial Sliding Scale -) 1 vial SQ TIDAC [facility]; Protocol Last Admin: 12/24/19 11:53 Dose: Not Given Oseltamivir Phosphate (Tamiflu -) 30 mg PO BID [facility] Stop: 12/27/19 14:27 Last Admin: 12/24/19 09:13 Dose: 30 mg - Objective Vital Signs: Vital Signs Temperature 97.4 F L 12/24/19 09:18 Pulse Rate 94 H 12/24/19 09:18 Respiratory Rate 20 12/24/19 09:18 Blood Pressure 141/71 12/24/19 09:18 O2 Sat by Pulse Oximetry (%) 98 12/23/19 21:00 Constitutional: Yes: Well Nourished, No Distress, Anxious Eyes: Yes: Conjunctiva Clear, EOM Intact HENT: Yes: Atraumatic, Normocephalic Neck: Yes: Supple, Trachea Midline Cardiovascular: Yes: Regular Rate and Rhythm Respiratory: Yes: Regular, CTA Bilaterally, Rhonchi Gastrointestinal: Yes: Normal Bowel Sounds, Soft, Other (cholelithiasis) ...Rectal Exam: Yes: Deferred Genitourinary: Yes: WNL Breast(s): Yes: WNL Musculoskeletal: Yes: Muscle Weakness Extremities: Yes: WNL Edema: No Peripheral Pulses WNL: Yes Integumentary: Yes: WNL Neurological: Yes: Alert, Weakness ...Motor Strength: LLE (muscle weakness), RLE (muscle weakness) Psychiatric: Yes: Alert Labs: CBC, BMP 12/24/19 05:25 12/23/19 06:58 - ....Imaging Other: Report Reviewed (Lab data reviewed) Problem List - Problems (1) NSTEMI (non-ST elevated myocardial infarction) Code(s): I21.4 - NON-ST ELEVATION (NSTEMI) MYOCARDIAL INFARCTION (2) Shortness of breath Code(s): R06.02 - SHORTNESS OF BREATH (3) Anemia Code(s): D64.9 - ANEMIA, UNSPECIFIED Qualifiers: Other causes of anemia: chronic disease, other (4) Back pain Code(s): M54.9 - DORSALGIA, UNSPECIFIED Qualifiers: Back pain location: low back pain Back pain laterality: bilateral (5) Chronic pain Code(s): G89.29 - OTHER CHRONIC PAIN (6) HTN (hypertension) Code(s): I10 - ESSENTIAL (PRIMARY) HYPERTENSION Qualifiers: Hypertension type: essential hypertension Qualified Code(s): I10 - Essential (primary) hypertension (7) Acute sepsis Code(s): A41.9 - SEPSIS, UNSPECIFIED ORGANISM (8) Acute pneumonia Code(s): J18.9 - PNEUMONIA, UNSPECIFIED ORGANISM (9) Acute respiratory failure Code(s): J96.00 - ACUTE RESPIRATORY FAILURE, UNSP W HYPOXIA OR HYPERCAPNIA (10) Neutrophilic leukocytosis Code(s): D72.9 - DISORDER OF WHITE BLOOD CELLS, UNSPECIFIED (11) Chest pain Code(s): R07.9 - CHEST PAIN, UNSPECIFIED (12) Cholelithiasis Code(s): K80.20 - CALCULUS OF GALLBLADDER W/O CHOLECYSTITIS W/O OBSTRUCTION (13) Haemophilus infection Code(s): A49.2 - HEMOPHILUS INFLUENZAE INFECTION, UNSPECIFIED SITE (14) Bacteremia due to Gram-negative bacteria Code(s): R78.81 - BACTEREMIA Assessment/Plan Assessment/plan: acute sepsis, acute Haemophilus bacteremia, acute bilateral pneumonia, acute cough, acute dyspnea and tachypnea; IV fluids, IV Cefepime as per ID, DVT prophylaxis, physical therapy, SCDS, bronchodilators, oxygen via nasal cannula, sliding scale insulin coverage.
--- NOTE | 2019-12-24 13:16 | PN ---
Progress Note (short form) - Note Progress Note: oob in chair ruq discomfort resolving Vital Signs Period Temp Pulse Resp BP Sys/Anand Pulse Ox Last 24 Hr 97.4 F-98.2 F 90-101 17-20 112-141/60-71 98 cor-rrr llungs ecreased bs at bases abd soft,nt ext no edema CBC, BMP 12/24/19 05:25 12/23/19 06:58 Microbiology 12/23/19 15:35 Urine - Urine Clean Catch Legionella Antigen - Final 12/23/19 15:35 Urine - Urine Clean Catch Streptococcus pneumoniae Antigen ( M - Final 12/21/19 23:24 Blood - Peripheral Venous Blood Culture - Preliminary Haemophilus Species 12/21/19 23:24 Blood - Peripheral Venous Blood Culture - Preliminary Pending Organism a/p gram negative bacteremia-hemophilus -respiratory tract source repeat blood cultures switch to rocephin continue tamiflu for influenza (empiric) RA- immunocompromised host (by virtue of meds)
[2019-12-24] MEDS: ALBUTEROL SO4 2.5/IPRATROPIUM 0.5 INH SOL 3 ML VIAL.NEB. NEB SCH ×3 (13:20→20:30)
[2019-12-24] MEDS ORDERED: DEXTROSE 5%-WATER 100 ML IVPB ONE (14:05)
[2019-12-24] MEDS: CEFTRIAXONE 2 GM in DEXTROSE 5%-WATER 100 ML IVPB SCH (14:25)
[2019-12-25] MEDS: INSULIN SLIDING SCALE (NOVOLOG) 1 VIAL SQ SCH ×3 (06:02→17:22)
[2019-12-25 07:56] LABS: BASO % 0.4 % (0-2.0); EOS % 3.9 % (0-4.5); HEMATOCRIT 32.4 % (32.4-45.2); HEMOGLOBIN 10.2 GM/dL (10.7-15.3); LYMPH % 21.7 % (8-40); MCH 25.3 pg (25.7-33.7); MCHC 31.4 g/dl (32.0-36.0); MEAN CELL VOLUME 80.7 fl (80-96); MEAN PLT VOLUME 8.5 fl (7.5-11.1); MONO % 4.3 % (3.8-10.2); NEUT % 69.7 % (42.8-82.8); PLATELET COUNT 346 K/MM3 (134-434); RBC 4.02 M/mm3 (3.60-5.2); RDW 21.1 % (11.6-15.6)
[2019-12-25] MEDS: ALBUTEROL SO4 2.5/IPRATROPIUM 0.5 INH SOL 3 ML VIAL.NEB. NEB SCH ×4 (08:00→20:56)
[2019-12-25 08:44] LABS: ALBUMIN 2.6 g/dl (3.4-5.0); BILIRUBIN,TOTAL 0.4 mg/dL (0.2-1); BLOOD UREA NITROGEN 15.8 mg/dL (7-18); CALCIUM 8.7 mg/dL (8.5-10.1); CREATININE 0.7 mg/dL (0.55-1.3); POTASSIUM 3.9 mmol/L (3.5-5.1); TOT PROT 6.7 g/dl (6.4-8.2)
--- NOTE | 2019-12-25 08:48 | PN ---
Progress Note, Physician Chief Complaint: walked from bathroom to chair without O2, SOB TELE: NSR, short run NSVT 3 beats. Denies CP, palps. History of Present Illness: AFebrile, stable BP - Current Medication List Current Medications: Active Medications Acetaminophen (Tylenol -) 650 mg PO Q6H PRN PRN Reason: MODERATE PAIN Last Admin: 12/24/19 09:10 Dose: 650 mg Albuterol/Ipratropium (Duoneb -) 1 amp NEB RQID [facility] Last Admin: 12/25/19 08:00 Dose: 1 amp Enoxaparin Sodium (Lovenox -) 40 mg SQ DAILY [facility] Last Admin: 12/24/19 09:10 Dose: 40 mg Ceftriaxone Sodium 2 gm/ (Dextrose) 100 mls @ 100 mls/hr IVPB DAILY [facility]; Protocol Last Admin: 12/24/19 14:25 Dose: 100 mls/hr Insulin Aspart (Novolog Vial Sliding Scale -) 1 vial SQ TIDAC [facility]; Protocol Last Admin: 12/25/19 06:02 Dose: Not Given Oseltamivir Phosphate (Tamiflu -) 30 mg PO BID [facility] Stop: 12/27/19 14:27 Last Admin: 12/24/19 21:35 Dose: 30 mg - Objective Vital Signs: Vital Signs Temperature 98.2 F 12/25/19 05:44 Pulse Rate 90 12/25/19 05:44 Respiratory Rate 16 12/25/19 05:44 Blood Pressure 143/82 12/25/19 05:44 O2 Sat by Pulse Oximetry (%) 98 12/24/19 21:00 Constitutional: Yes: No Distress Eyes: Yes: Conjunctiva Clear, EOM Intact Cardiovascular: Yes: Regular Rate and Rhythm Respiratory: Yes: Rhonchi, Other (diffuse mild rhonchi with decreased basilar breath sounds, no active wheezing) Gastrointestinal: Yes: Soft, Abdomen, Obese Edema: No Neurological: Yes: Alert, Oriented ...Motor Strength: WNL Psychiatric: Yes: WNL Labs: CBC, BMP 12/25/19 07:00 12/25/19 07:00 Microbiology 12/21/19 23:24 Blood - Peripheral Venous Blood Culture - Preliminary Haemophilus Species Laboratory Tests 12/21/19 12/25/19 12/25/19 21:11 07:00 07:00 WBC 9.0 Hgb 10.2 L Plt Count 346 Sodium 140 Potassium 3.9 Creatinine 0.7 Influenza A (Rapid) Negative Influenza B (Rapid) Negative Assessment/Plan EKG:sinus tach, no ischemic changes CT chest: shine pneumonic infiltrates, mild bronchiectatic changes in lower lobes , cannot exclue congestion or chronic ILD tele: sinus tach, sinus elevated trop: - EKG no ischemic changes - flat trend, indeterminate range, likely demand in setting of PNA, no signs acs - echo with nl lvef, no sig valve abnormalities -recommend nuclear stress when recovers, either prior to discharge or as outpatient. PNA, flu: - manage per primary HTN: - cont home meds anemia: - manage per primary DVT prophylaxis: as doing
[2019-12-25 10:19] LABS: ANISOCYTOSIS 1+; MACROCYTOSIS 0; OVALOCYTE 1+; PLATELET ESTIMATE NORMAL; TARGET CELLS 2+; TOXIC GRANULATION 2+
[2019-12-25] MEDS ORDERED: DEXTROSE 5%-WATER 100 ML IVPB ONE (10:30)
[2019-12-25] MEDS ORDERED: PT OWN MED DRAWER 7, Y5N ONE (10:30)
[2019-12-25] MEDS: CEFTRIAXONE 2 GM in DEXTROSE 5%-WATER 100 ML IVPB SCH (10:33)
[2019-12-25] MEDS: ENOXAPARIN NA (PORCINE) 40 MG/0.4 ML DISP.SYRIN SQ SCH (10:34)
[2019-12-25] MEDS: OSELTAMIVIR PHOSPHATE 30 MG CAPSULE PO SCH ×2 (10:35→21:35)
--- NOTE | 2019-12-25 11:32 | PN ---
Progress Note, Physician - Current Medication List Current Medications: Active Medications Acetaminophen (Tylenol -) 650 mg PO Q6H PRN PRN Reason: MODERATE PAIN Last Admin: 12/24/19 09:10 Dose: 650 mg Albuterol/Ipratropium (Duoneb -) 1 amp NEB RQID [facility] Last Admin: 12/25/19 08:00 Dose: 1 amp Enoxaparin Sodium (Lovenox -) 40 mg SQ DAILY [facility] Last Admin: 12/25/19 10:34 Dose: 40 mg Ceftriaxone Sodium 2 gm/ (Dextrose) 100 mls @ 100 mls/hr IVPB DAILY [facility]; Protocol Last Admin: 12/25/19 10:33 Dose: 100 mls/hr Insulin Aspart (Novolog Vial Sliding Scale -) 1 vial SQ TIDAC [facility]; Protocol Last Admin: 12/25/19 06:02 Dose: Not Given Oseltamivir Phosphate (Tamiflu -) 30 mg PO BID [facility] Stop: 12/27/19 14:27 Last Admin: 12/25/19 10:35 Dose: 30 mg - Objective Vital Signs: Vital Signs Temperature 98.2 F 12/25/19 05:44 Pulse Rate 90 12/25/19 05:44 Respiratory Rate 16 12/25/19 05:44 Blood Pressure 143/82 12/25/19 05:44 O2 Sat by Pulse Oximetry (%) 98 12/24/19 21:00 Labs: CBC, BMP 12/25/19 07:00 12/25/19 07:00 Assessment/Plan Problem List - Problems (1) Influenza Code(s): J11.1 - FLU DUE TO UNIDENTIFIED INFLUENZA VIRUS W OTH RESP MANIFEST (2) Acute pneumonia Code(s): J18.9 - PNEUMONIA, UNSPECIFIED ORGANISM (3) Shortness of breath Code(s): R06.02 - SHORTNESS OF BREATH (4) Anemia Code(s): D64.9 - ANEMIA, UNSPECIFIED Qualifiers: Other causes of anemia: chronic disease, other (5) Back pain Code(s): M54.9 - DORSALGIA, UNSPECIFIED Qualifiers: Back pain location: low back pain Back pain laterality: bilateral (6) Chronic pain Code(s): G89.29 - OTHER CHRONIC PAIN (7) HTN (hypertension) Code(s): I10 - ESSENTIAL (PRIMARY) HYPERTENSION Qualifiers: Hypertension type: essential hypertension Qualified Code(s): I10 - Essential (primary) hypertension (8) Spinal stenosis Code(s): M48.00 - SPINAL STENOSIS, SITE UNSPECIFIED Qualifiers: Spinal region: lumbosacral Qualified Code(s): M48.07 - Spinal stenosis, lumbosacral region 9 BACTEREMIA Assessment/Plan Tamiflu ABX as per ID O2 VTE prophylaxis Will need repeat imaging as an outpatient to ensure resolution of infiltrates in this immunocompromised host inhaled bronchodilators DR MOTA
--- NOTE | 2019-12-25 11:48 | PN ---
Progress Note, Physician Chief Complaint: Patient seen and examined at the bedside, diminished shortness of breath, wheezing, right upper quadrant abdominal pain, poor intake of oral fluids. History of Present Illness: This 74 yr old female with hx of rheumatoid arthritis, and HTN admitted via ER with acute productive cough, acute dyspnea, and right anterior lower chest pain. Taking remicade and inflixmab for treatment of RA. - Current Medication List Current Medications: Active Medications Acetaminophen (Tylenol -) 650 mg PO Q6H PRN PRN Reason: MODERATE PAIN Last Admin: 12/24/19 09:10 Dose: 650 mg Albuterol/Ipratropium (Duoneb -) 1 amp NEB RQID [facility] Last Admin: 12/25/19 08:00 Dose: 1 amp Enoxaparin Sodium (Lovenox -) 40 mg SQ DAILY [facility] Last Admin: 12/25/19 10:34 Dose: 40 mg Ceftriaxone Sodium 2 gm/ (Dextrose) 100 mls @ 100 mls/hr IVPB DAILY [facility]; Protocol Last Admin: 12/25/19 10:33 Dose: 100 mls/hr Insulin Aspart (Novolog Vial Sliding Scale -) 1 vial SQ TIDAC [facility]; Protocol Last Admin: 12/25/19 06:02 Dose: Not Given Oseltamivir Phosphate (Tamiflu -) 30 mg PO BID [facility] Stop: 12/27/19 14:27 Last Admin: 12/25/19 10:35 Dose: 30 mg - Objective Vital Signs: Vital Signs Temperature 98.2 F 12/25/19 05:44 Pulse Rate 90 12/25/19 05:44 Respiratory Rate 16 12/25/19 05:44 Blood Pressure 143/82 12/25/19 05:44 O2 Sat by Pulse Oximetry (%) 98 12/24/19 21:00 Constitutional: Yes: Well Nourished, Calm, Mild Distress Eyes: Yes: Conjunctiva Clear, EOM Intact HENT: Yes: Atraumatic, Normocephalic Neck: Yes: Supple, Trachea Midline Cardiovascular: Yes: Regular Rate and Rhythm Respiratory: Yes: Cough, Diminished, On Nasal O2, Orthopnea, Rhonchi, SOB, SOB on Exertion, Wheezes Gastrointestinal: Yes: Normal Bowel Sounds, Soft, Other (right upper quadrant abdominal pain) ...Rectal Exam: Yes: Deferred Genitourinary: Yes: WNL Breast(s): Yes: WNL Musculoskeletal: Yes: Muscle Weakness Extremities: Yes: Other (generalized muscle weakness) Edema: No Peripheral Pulses WNL: Yes Integumentary: Yes: WNL Neurological: Yes: Alert, Unsteady Gait, Weakness ...Motor Strength: LLE (muscle weakness), RLE (muscle weakness) Psychiatric: Yes: Alert Labs: CBC, BMP 12/25/19 07:00 12/25/19 07:00 - ....Imaging Other: Report Reviewed (Lab data reviewed, ID, Cardio, and Pulmo notes read and appreciated) Problem List - Problems (1) NSTEMI (non-ST elevated myocardial infarction) Code(s): I21.4 - NON-ST ELEVATION (NSTEMI) MYOCARDIAL INFARCTION (2) Shortness of breath Code(s): R06.02 - SHORTNESS OF BREATH (3) Anemia Code(s): D64.9 - ANEMIA, UNSPECIFIED Qualifiers: Other causes of anemia: chronic disease, other (4) Back pain Code(s): M54.9 - DORSALGIA, UNSPECIFIED Qualifiers: Back pain location: low back pain Back pain laterality: bilateral (5) Chronic pain Code(s): G89.29 - OTHER CHRONIC PAIN (6) HTN (hypertension) Code(s): I10 - ESSENTIAL (PRIMARY) HYPERTENSION Qualifiers: Hypertension type: essential hypertension Qualified Code(s): I10 - Essential (primary) hypertension (7) Acute sepsis Code(s): A41.9 - SEPSIS, UNSPECIFIED ORGANISM (8) Acute pneumonia Code(s): J18.9 - PNEUMONIA, UNSPECIFIED ORGANISM (9) Acute respiratory failure Code(s): J96.00 - ACUTE RESPIRATORY FAILURE, UNSP W HYPOXIA OR HYPERCAPNIA (10) Neutrophilic leukocytosis Code(s): D72.9 - DISORDER OF WHITE BLOOD CELLS, UNSPECIFIED (11) Chest pain Code(s): R07.9 - CHEST PAIN, UNSPECIFIED (12) Cholelithiasis Code(s): K80.20 - CALCULUS OF GALLBLADDER W/O CHOLECYSTITIS W/O OBSTRUCTION (13) Haemophilus infection Code(s): A49.2 - HEMOPHILUS INFLUENZAE INFECTION, UNSPECIFIED SITE (14) Bacteremia due to Gram-negative bacteria Code(s): R78.81 - BACTEREMIA (15) RUQ abdominal pain Code(s): R10.11 - RIGHT UPPER QUADRANT PAIN Assessment/Plan Assessment/plan: acute Haemophilus bacteremia, acute bilateral pneumonia, acute sepsis, acute dyspnea and wheezing, acute RUQ abdominal pain; IV fluids, IV Ceftriaxone, bronchodilators, oxygen 2L/min via nasal cannula, DVT prophylaxis, physical therapy, incentive spirometer, referral to General Surgeon.
--- NOTE | 2019-12-25 11:59 | PN ---
Progress Note, Physician History of Present Illness: pulmonary alert,ambulating,c/o sob - Current Medication List Current Medications: Active Medications Acetaminophen (Tylenol -) 650 mg PO Q6H PRN PRN Reason: MODERATE PAIN Last Admin: 12/24/19 09:10 Dose: 650 mg Albuterol/Ipratropium (Duoneb -) 1 amp NEB RQID [facility] Last Admin: 12/25/19 11:56 Dose: Not Given Enoxaparin Sodium (Lovenox -) 40 mg SQ DAILY [facility] Last Admin: 12/25/19 10:34 Dose: 40 mg Ceftriaxone Sodium 2 gm/ (Dextrose) 100 mls @ 100 mls/hr IVPB DAILY [facility]; Protocol Last Admin: 12/25/19 10:33 Dose: 100 mls/hr Insulin Aspart (Novolog Vial Sliding Scale -) 1 vial SQ TIDAC [facility]; Protocol Last Admin: 12/25/19 06:02 Dose: Not Given Oseltamivir Phosphate (Tamiflu -) 30 mg PO BID [facility] Stop: 12/27/19 14:27 Last Admin: 12/25/19 10:35 Dose: 30 mg - Objective Vital Signs: Vital Signs Temperature 98.2 F 12/25/19 05:44 Pulse Rate 90 12/25/19 05:44 Respiratory Rate 16 12/25/19 05:44 Blood Pressure 143/82 12/25/19 05:44 O2 Sat by Pulse Oximetry (%) 98 12/24/19 21:00 Constitutional: Yes: Well Nourished, Calm Eyes: Yes: WNL HENT: Yes: WNL Neck: Yes: WNL Cardiovascular: Yes: Regular Rate and Rhythm, S1, S2 Respiratory: Yes: Rhonchi (few scattered rhonchi) Gastrointestinal: Yes: Normal Bowel Sounds, Soft Extremities: Yes: WNL Edema: No Labs: CBC, BMP 12/25/19 07:00 12/25/19 07:00 Assessment/Plan Problem List - Problems (1) Influenza Code(s): J11.1 - FLU DUE TO UNIDENTIFIED INFLUENZA VIRUS W OTH RESP MANIFEST (2) Acute pneumonia Code(s): J18.9 - PNEUMONIA, UNSPECIFIED ORGANISM (3) Shortness of breath Code(s): R06.02 - SHORTNESS OF BREATH (4) Anemia Code(s): D64.9 - ANEMIA, UNSPECIFIED Qualifiers: Other causes of anemia: chronic disease, other (5) Back pain Code(s): M54.9 - DORSALGIA, UNSPECIFIED Qualifiers: Back pain location: low back pain Back pain laterality: bilateral (6) Chronic pain Code(s): G89.29 - OTHER CHRONIC PAIN (7) HTN (hypertension) Code(s): I10 - ESSENTIAL (PRIMARY) HYPERTENSION Qualifiers: Hypertension type: essential hypertension Qualified Code(s): I10 - Essential (primary) hypertension (8) Spinal stenosis Code(s): M48.00 - SPINAL STENOSIS, SITE UNSPECIFIED Qualifiers: Spinal region: lumbosacral Qualified Code(s): M48.07 - Spinal stenosis, lumbosacral region 9 BACTEREMIA Assessment/Plan Tamiflu ABX as per ID O2 VTE prophylaxis Will need repeat imaging as an outpatient to ensure resolution of infiltrates in this immunocompromised host inhaled bronchodilators f/u chest x-ray am DR MOTA
[2019-12-25] MEDS: D5-1/2NS+20 MEQ KCL - 20 MEQ/1,000 ML INFUS.BAG IV SCH (13:30)
[2019-12-25] MEDS: ACETAMINOPHEN 325 MG TABLET (FP) PO PRN (13:30)
--- NOTE | 2019-12-25 14:22 | PN ---
Progress Note (short form) - Note Progress Note: feels better still with congested cough Vital Signs Period Temp Pulse Resp BP Sys/Anand Pulse Ox Last 24 Hr 97.8 F-98.3 F 86-95 16-20 121-147/68-82 93-98 cor-rrr lungs bilateral rhonchi abd soft,nt ext no edema CBC, BMP 12/25/19 07:00 12/25/19 07:00 Microbiology 12/24/19 13:57 Blood - Peripheral Venous Blood Culture - Preliminary NO GROWTH OBTAINED AFTER 24 HOURS, INCUBATION TO CONTINUE FOR 4 DAYS. 12/24/19 13:50 Blood - Peripheral Venous Blood Culture - Preliminary NO GROWTH OBTAINED AFTER 24 HOURS, INCUBATION TO CONTINUE FOR 4 DAYS. 12/21/19 23:24 Blood - Peripheral Venous Blood Culture - Preliminary Haemophilus Influenzae Iii 12/23/19 15:35 Urine - Urine Clean Catch Urine Culture - Final NO GROWTH OBTAINED 12/21/19 23:24 Blood - Peripheral Venous Blood Culture - Preliminary Haemophilus Species 12/23/19 15:35 Urine - Urine Clean Catch Legionella Antigen - Final 12/23/19 15:35 Urine - Urine Clean Catch Streptococcus pneumoniae Antigen ( M - Final a/p pneumonia hemophilus bacteremia- betal lactamase positive- Micro to repeat panel continue ceftriaxone day #4 repeat blood cultures sent presumtime influenza- to complete 5 daysl tamiflu f/u resp virus pcr droplet isolation (do not cohort) Problem List - Problems (1) Acute pneumonia Code(s): J18.9 - PNEUMONIA, UNSPECIFIED ORGANISM (2) Influenza Code(s): J11.1 - FLU DUE TO UNIDENTIFIED INFLUENZA VIRUS W OTH RESP MANIFEST (3) History of immunocompromised state Code(s): Z86.2 - PRSNL HISTORY OF DIS OF THE BLD/BLD-FORM ORG/IMMUN MECHNSM
[2019-12-26] MEDS: INSULIN SLIDING SCALE (NOVOLOG) 1 VIAL SQ SCH ×3 (06:19→17:24)
[2019-12-26 07:00] LABS: BASO % 0.2 % (0-2.0); EOS % 3.4 % (0-4.5); LYMPH % 19.2 % (8-40); MCH 24.9 pg (25.7-33.7); MCHC 31.2 g/dl (32.0-36.0); MEAN CELL VOLUME 79.8 fl (80-96); MEAN PLT VOLUME 8.6 fl (7.5-11.1); MONO % 5.9 % (3.8-10.2); NEUT % 71.3 % (42.8-82.8); PLATELET COUNT 353 K/MM3 (134-434); RBC 4.01 M/mm3 (3.60-5.2); RDW 20.7 % (11.6-15.6); WHITE BLOOD COUNT 11.4 K/mm3 (4.0-10.0)
[2019-12-26 07:33] LABS: ALBUMIN 2.6 g/dl (3.4-5.0); BILIRUBIN,TOTAL 0.4 mg/dL (0.2-1); CALCIUM 8.5 mg/dL (8.5-10.1); CREATININE 0.6 mg/dL (0.55-1.3); POTASSIUM 4.3 mmol/L (3.5-5.1); TOT PROT 6.5 g/dl (6.4-8.2)
[2019-12-26] MEDS: ALBUTEROL SO4 2.5/IPRATROPIUM 0.5 INH SOL 3 ML VIAL.NEB. NEB SCH ×4 (08:10→20:24)
[2019-12-26] MEDS ORDERED: DEXTROSE 5%-WATER 100 ML IVPB ONE (09:09)
[2019-12-26] MEDS: OSELTAMIVIR PHOSPHATE 30 MG CAPSULE PO SCH ×2 (09:51→21:09)
[2019-12-26] MEDS: ENOXAPARIN NA (PORCINE) 40 MG/0.4 ML DISP.SYRIN SQ SCH (09:51)
[2019-12-26] MEDS: CEFTRIAXONE 2 GM in DEXTROSE 5%-WATER 100 ML IVPB SCH (09:51)
--- NOTE | 2019-12-26 09:59 | PN ---
Progress Note, Physician Chief Complaint: Patient seen and examined at the bedside, diminution of labored breathing, intermittent right upper quadrant abdominal pain. History of Present Illness: This 74 yr od female with hx of rheumatoid arthritis, and HTN admitted via ER with an acute severe dyspnea, productive cough, and right anterior lower chest pain. Taking remicade and inflixmab for treatment of RA. - Current Medication List Current Medications: Active Medications Acetaminophen (Tylenol -) 650 mg PO Q6H PRN PRN Reason: MODERATE PAIN Last Admin: 12/25/19 13:30 Dose: 650 mg Albuterol/Ipratropium (Duoneb -) 1 amp NEB RQID ON LICENSE OF [facility] Last Admin: 12/26/19 08:10 Dose: 1 amp Enoxaparin Sodium (Lovenox -) 40 mg SQ DAILY ON LICENSE OF [facility] Last Admin: 12/25/19 10:34 Dose: 40 mg Ceftriaxone Sodium 2 gm/ (Dextrose) 100 mls @ 100 mls/hr IVPB DAILY ON LICENSE OF [facility]; Protocol Last Admin: 12/25/19 10:33 Dose: 100 mls/hr Potassium Chloride/Dextrose/Sod Cl (D5-1/2ns+20 Meq Kcl -) 20 meq in 1,000 mls @ 50 mls/hr IV ASDIR ON LICENSE OF [facility] Last Admin: 12/25/19 13:30 Dose: 50 mls/hr Insulin Aspart (Novolog Vial Sliding Scale -) 1 vial SQ TIDAC ON LICENSE OF [facility]; Protocol Last Admin: 12/26/19 06:19 Dose: Not Given Oseltamivir Phosphate (Tamiflu -) 30 mg PO BID ON LICENSE OF [facility] Stop: 12/27/19 14:27 Last Admin: 12/25/19 21:35 Dose: 30 mg - Objective Vital Signs: Vital Signs Temperature 98.5 F 12/26/19 05:36 Pulse Rate 81 12/26/19 05:36 Respiratory Rate 18 12/26/19 05:36 Blood Pressure 156/76 12/26/19 05:36 O2 Sat by Pulse Oximetry (%) 97 12/26/19 08:09 Constitutional: Yes: Well Nourished, Calm, Mild Distress Eyes: Yes: Conjunctiva Clear, EOM Intact HENT: Yes: Atraumatic, Normocephalic Neck: Yes: Supple, Trachea Midline Cardiovascular: Yes: Regular Rate and Rhythm Respiratory: Yes: Accessory Muscle Use, Diminished, On Nasal O2, Orthopnea, Rhonchi, SOB, SOB on Exertion, Wheezes Gastrointestinal: Yes: Normal Bowel Sounds, Soft ...Rectal Exam: Yes: Deferred Genitourinary: Yes: WNL Breast(s): Yes: WNL Musculoskeletal: Yes: Muscle Weakness Extremities: Yes: Other (generalized muscle weakness) Edema: No Peripheral Pulses WNL: Yes Integumentary: Yes: WNL Neurological: Yes: Alert, Weakness ...Motor Strength: LLE (muscle weakness), RLE (muscle weakness) Psychiatric: Yes: Alert Labs: CBC, BMP 12/26/19 05:30 12/26/19 05:30 - ....Imaging Other: Report Reviewed (Lab data reviewed) Problem List - Problems (1) NSTEMI (non-ST elevated myocardial infarction) Code(s): I21.4 - NON-ST ELEVATION (NSTEMI) MYOCARDIAL INFARCTION (2) Shortness of breath Code(s): R06.02 - SHORTNESS OF BREATH (3) Anemia Code(s): D64.9 - ANEMIA, UNSPECIFIED Qualifiers: Other causes of anemia: chronic disease, other (4) Back pain Code(s): M54.9 - DORSALGIA, UNSPECIFIED Qualifiers: Back pain location: low back pain Back pain laterality: bilateral (5) Chronic pain Code(s): G89.29 - OTHER CHRONIC PAIN (6) HTN (hypertension) Code(s): I10 - ESSENTIAL (PRIMARY) HYPERTENSION Qualifiers: Hypertension type: essential hypertension Qualified Code(s): I10 - Essential (primary) hypertension (7) Acute sepsis Code(s): A41.9 - SEPSIS, UNSPECIFIED ORGANISM (8) Acute pneumonia Code(s): J18.9 - PNEUMONIA, UNSPECIFIED ORGANISM (9) Acute respiratory failure Code(s): J96.00 - ACUTE RESPIRATORY FAILURE, UNSP W HYPOXIA OR HYPERCAPNIA (10) Neutrophilic leukocytosis Code(s): D72.9 - DISORDER OF WHITE BLOOD CELLS, UNSPECIFIED (11) Chest pain Code(s): R07.9 - CHEST PAIN, UNSPECIFIED (12) Cholelithiasis Code(s): K80.20 - CALCULUS OF GALLBLADDER W/O CHOLECYSTITIS W/O OBSTRUCTION (13) Haemophilus infection Code(s): A49.2 - HEMOPHILUS INFLUENZAE INFECTION, UNSPECIFIED SITE (14) Bacteremia due to Gram-negative bacteria Code(s): R78.81 - BACTEREMIA (15) RUQ abdominal pain Code(s): R10.11 - RIGHT UPPER QUADRANT PAIN Assessment/Plan Assessment/plan: acute Haemophilus bacteremia Beta lactamase positive, acute bilateral pneumonia, acute dyspnea, acute cough, acute RUQ abdominal pain; IV fluids, IV Ceftriaxone as per ID, droplet precautions, DVT prophylaxis, physical therapy, oxygen 3L/min via nasal cannula, incentive spirometer, bronchodilators, sliding scale insulin coverage.
[2019-12-26 10:09] LABS: ANISOCYTOSIS 1+; MACROCYTOSIS 0; OVALOCYTE 1+; PLATELET ESTIMATE NORMAL; TARGET CELLS 1+; TEAR DROP CELLS 1+
--- NOTE | 2019-12-26 11:36 | PN ---
Progress Note (short form) - Note Progress Note: s: no chest pain, palps, dizziness, dyspnea tele: sinus, NSVT 5 beats Current Medications Acetaminophen (Tylenol -) 650 mg PO Q6H PRN PRN Reason: MODERATE PAIN Last Admin: 12/25/19 13:30 Dose: 650 mg Albuterol/Ipratropium (Duoneb -) 1 amp NEB RQID [facility] Last Admin: 12/26/19 11:29 Dose: 1 amp Enoxaparin Sodium (Lovenox -) 40 mg SQ DAILY [facility] Last Admin: 12/26/19 09:51 Dose: 40 mg Ceftriaxone Sodium 2 gm/ (Dextrose) 100 mls @ 100 mls/hr IVPB DAILY [facility]; Protocol Last Admin: 12/26/19 09:51 Dose: 100 mls/hr Potassium Chloride/Dextrose/Sod Cl (D5-1/2ns+20 Meq Kcl -) 20 meq in 1,000 mls @ 50 mls/hr IV ASDIR [facility] Last Admin: 12/25/19 13:30 Dose: 50 mls/hr Insulin Aspart (Novolog Vial Sliding Scale -) 1 vial SQ TIDAC [facility]; Protocol Last Admin: 12/26/19 06:19 Dose: Not Given Oseltamivir Phosphate (Tamiflu -) 30 mg PO BID [facility] Stop: 12/27/19 14:27 Last Admin: 12/26/19 09:51 Dose: 30 mg Vital Signs Period Temp Pulse Resp BP Sys/Anand Pulse Ox Last 24 Hr 97.9 F-98.8 F 81-92 18-18 121-156/70-82 94-97 Constitutional: Yes: No Distress Eyes: Yes: Conjunctiva Clear, EOM Intact Cardiovascular: Yes: Regular Rate and Rhythm Respiratory: Yes: Rhonchi, Other (diffuse mild rhonchi with decreased basilar breath sounds, no active wheezing) Gastrointestinal: Yes: Soft, Abdomen, Obese Edema: No Neurological: Yes: Alert, Oriented no jaundice, diaphoresis not agitated Assessment/Plan EKG:sinus tach, no ischemic changes CT chest: shine pneumonic infiltrates, mild bronchiectatic changes in lower lobes , cannot exclue congestion or chronic ILD elevated trop: - EKG no ischemic changes - flat trend, indeterminate range, likely demand in setting of PNA, no signs acs - echo with nl lvef, no sig valve abnormalities - recommend nuclear stress when recovers, either prior to discharge or as outpatient. PNA, flu: - manage per primary HTN: - cont home meds anemia: - manage per primary NSVT - nl EF here - replete lytes for K>4, Mg>2 DVT prophylaxis: as doing
--- NOTE | 2019-12-26 12:32 | PN ---
Progress Note (short form) - Note Progress Note: Breathing is improving. No CP or SOB. No acute events overnight. CXR: Improving infiltrates Intake & Output 12/23/19 12/24/19 12/25/19 12/26/19 23:59 23:59 23:59 23:59 Intake Total 280 298 5871 1220 Balance 224 363 7816 1220 Last Vital Signs Temp Pulse Resp BP Pulse Ox 98.5 F 81 18 156/76 97 12/26/19 05:36 12/26/19 05:36 12/26/19 05:36 12/26/19 05:36 12/26/19 08:09 Active Medications Acetaminophen (Tylenol -) 650 mg PO Q6H PRN PRN Reason: MODERATE PAIN Last Admin: 12/25/19 13:30 Dose: 650 mg Albuterol/Ipratropium (Duoneb -) 1 amp NEB RQID [facility] Last Admin: 12/26/19 11:29 Dose: 1 amp Enoxaparin Sodium (Lovenox -) 40 mg SQ DAILY [facility] Last Admin: 12/26/19 09:51 Dose: 40 mg Ceftriaxone Sodium 2 gm/ (Dextrose) 100 mls @ 100 mls/hr IVPB DAILY [facility]; Protocol Last Admin: 12/26/19 09:51 Dose: 100 mls/hr Potassium Chloride/Dextrose/Sod Cl (D5-1/2ns+20 Meq Kcl -) 20 meq in 1,000 mls @ 50 mls/hr IV ASDIR [facility] Last Admin: 12/25/19 13:30 Dose: 50 mls/hr Insulin Aspart (Novolog Vial Sliding Scale -) 1 vial SQ TIDAC [facility]; Protocol Last Admin: 12/26/19 12:12 Dose: Not Given Oseltamivir Phosphate (Tamiflu -) 30 mg PO BID [facility] Stop: 12/27/19 14:27 Last Admin: 12/26/19 09:51 Dose: 30 mg Constitutional: Yes: NAD Eyes: Yes: WNL HENT: Yes: WNL Neck: Yes: WNL Cardiovascular: Yes: Regular Rate and Rhythm, S1, S2 Respiratory: Yes: Few scattered rhonchi Gastrointestinal: Yes: Normal Bowel Sounds, Soft Extremities: Yes: WNL Edema: No Labs: Laboratory Results - last 24 hr 12/25/19 12/26/19 12/26/19 17:21 05:30 05:30 WBC 11.4 H RBC 4.01 Hgb 10.0 L Hct 32.0 L MCV 79.8 L MCH 24.9 L MCHC 31.2 L RDW 20.7 H Plt Count 353 MPV 8.6 Absolute Neuts (auto) 8.1 H Neutrophils % 71.3 Neutrophils % (Manual) 58.0 Band Neutrophils % 4.0 Lymphocytes % 19.2 Lymphocytes % (Manual) 17.0 Monocytes % 5.9 Monocytes % (Manual) 3 L Eosinophils % 3.4 Eosinophils % (Manual) 5.0 H D Basophils % 0.2 Basophils % (Manual) 0.0 Myelocytes % (Man) 1 D Promyelocytes % (Man) 0 Blast Cells % (Manual) 0 Nucleated RBC % 1 H Metamyelocytes 1 D Hypochromia 0 Platelet Estimate Normal Platelet Comment Present Polychromasia 1+ Poikilocytosis 1+ Anisocytosis 1+ Microcytosis 1+ Macrocytosis 0 Spherocytes 1+ Target Cells 1+ Tear Drop Cells 1+ Ovalocytes 1+ Sodium 141 Potassium 4.3 Chloride 103 Carbon Dioxide 32 Anion Gap 5 L BUN 8.0 Creatinine 0.6 Est GFR (CKD-EPI)AfAm 102.62 Est GFR (CKD-EPI)NonAf 88.54 POC Glucometer 126 Random Glucose 102 Calcium 8.5 Total Bilirubin 0.4 AST 14 L ALT 17 Alkaline Phosphatase 103 Total Protein 6.5 Albumin 2.6 L 12/26/19 06:09 WBC RBC Hgb Hct MCV MCH MCHC RDW Plt Count MPV Absolute Neuts (auto) Neutrophils % Neutrophils % (Manual) Band Neutrophils % Lymphocytes % Lymphocytes % (Manual) Monocytes % Monocytes % (Manual) Eosinophils % Eosinophils % (Manual) Basophils % Basophils % (Manual) Myelocytes % (Man) Promyelocytes % (Man) Blast Cells % (Manual) Nucleated RBC % Metamyelocytes Hypochromia Platelet Estimate Platelet Comment Polychromasia Poikilocytosis Anisocytosis Microcytosis Macrocytosis Spherocytes Target Cells Tear Drop Cells Ovalocytes Sodium Potassium Chloride Carbon Dioxide Anion Gap BUN Creatinine Est GFR (CKD-EPI)AfAm Est GFR (CKD-EPI)NonAf POC Glucometer 103 Random Glucose Calcium Total Bilirubin AST ALT Alkaline Phosphatase Total Protein Albumin Assessment/Plan Problem List - Problems (1) Influenza Code(s): J11.1 - FLU DUE TO UNIDENTIFIED INFLUENZA VIRUS W OTH RESP MANIFEST (2) Acute pneumonia Code(s): J18.9 - PNEUMONIA, UNSPECIFIED ORGANISM (3) Shortness of breath Code(s): R06.02 - SHORTNESS OF BREATH (4) Anemia Code(s): D64.9 - ANEMIA, UNSPECIFIED Qualifiers: Other causes of anemia: chronic disease, other (5) Back pain Code(s): M54.9 - DORSALGIA, UNSPECIFIED Qualifiers: Back pain location: low back pain Back pain laterality: bilateral (6) Chronic pain Code(s): G89.29 - OTHER CHRONIC PAIN (7) HTN (hypertension) Code(s): I10 - ESSENTIAL (PRIMARY) HYPERTENSION Qualifiers: Hypertension type: essential hypertension Qualified Code(s): I10 - Essential (primary) hypertension (8) Spinal stenosis Code(s): M48.00 - SPINAL STENOSIS, SITE UNSPECIFIED Qualifiers: Spinal region: lumbosacral Qualified Code(s): M48.07 - Spinal stenosis, lumbosacral region (9) Bacteremia Assessment/Plan Tamiflu ABX as per ID O2 VTE prophylaxis Will need repeat imaging as an outpatient to ensure resolution of infiltrates in this immunocompromised host inhaled bronchodilators Dr Hewitt Problem List - Problems (1) Influenza Code(s): J11.1 - FLU DUE TO UNIDENTIFIED INFLUENZA VIRUS W OTH RESP MANIFEST (2) Acute pneumonia Code(s): J18.9 - PNEUMONIA, UNSPECIFIED ORGANISM (3) Shortness of breath Code(s): R06.02 - SHORTNESS OF BREATH (4) Anemia Code(s): D64.9 - ANEMIA, UNSPECIFIED Qualifiers: Other causes of anemia: chronic disease, other (5) Back pain Code(s): M54.9 - DORSALGIA, UNSPECIFIED Qualifiers: Back pain location: low back pain Back pain laterality: bilateral (6) Chronic pain Code(s): G89.29 - OTHER CHRONIC PAIN (7) HTN (hypertension) Code(s): I10 - ESSENTIAL (PRIMARY) HYPERTENSION Qualifiers: Hypertension type: essential hypertension Qualified Code(s): I10 - Essential (primary) hypertension (8) Spinal stenosis Code(s): M48.00 - SPINAL STENOSIS, SITE UNSPECIFIED Qualifiers: Spinal region: lumbosacral Qualified Code(s): M48.07 - Spinal stenosis, lumbosacral region
[2019-12-26] MEDS: D5-1/2NS+20 MEQ KCL - 20 MEQ/1,000 ML INFUS.BAG IV SCH (15:00)
[2019-12-26] MEDS ORDERED: PT OWN MED DRAWER 7, Y5N ONE ×2 (17:35→20:46)
[2019-12-26] MEDS: ACETAMINOPHEN 325 MG TABLET (FP) PO PRN (21:09)
[2019-12-27] MEDS: ACETAMINOPHEN 325 MG TABLET (FP) PO PRN ×2 (05:56→19:56)
[2019-12-27] MEDS: INSULIN SLIDING SCALE (NOVOLOG) 1 VIAL SQ SCH ×2 (06:07→17:45)
[2019-12-27 07:14] LABS: BASO % 0.4 % (0-2.0); EOS % 8.8 % (0-4.5); HEMATOCRIT 29.4 % (32.4-45.2); HEMOGLOBIN 9.2 GM/dL (10.7-15.3); LYMPH % 26.7 % (8-40); MCH 25.1 pg (25.7-33.7); MCHC 31.4 g/dl (32.0-36.0); MEAN CELL VOLUME 79.9 fl (80-96); MEAN PLT VOLUME 8.5 fl (7.5-11.1); MONO % 7.4 % (3.8-10.2); NEUT % 56.7 % (42.8-82.8); PLATELET COUNT 330 K/MM3 (134-434); RBC 3.68 M/mm3 (3.60-5.2); RDW 20.9 % (11.6-15.6); WHITE BLOOD COUNT 8.9 K/mm3 (4.0-10.0)
[2019-12-27 07:42] LABS: ALBUMIN 2.2 g/dl (3.4-5.0); BILIRUBIN,TOTAL 0.5 mg/dL (0.2-1); BLOOD UREA NITROGEN 8.7 mg/dL (7-18); CALCIUM 8.4 mg/dL (8.5-10.1); CREATININE 0.6 mg/dL (0.55-1.3); POTASSIUM 4.8 mmol/L (3.5-5.1); TOT PROT 5.8 g/dl (6.4-8.2)
--- NOTE | 2019-12-27 07:44 | PN ---
Progress Note, Physician Chief Complaint: Patient seen and examined at the bedside, significant diminution of labored breathing, no acute events from last night. History of Present Illness: This 74 yr old female with PMH of rheumatoid arthritis, and HTN admitted via ER with acutely severe dyspnea, tachypnea, productive cough, and right anterior lower chest pain. During hospital stay patient had an abdominal ultrasound done which revealed cholelithiasis. - Current Medication List Current Medications: Active Medications Acetaminophen (Tylenol -) 650 mg PO Q6H PRN PRN Reason: MODERATE PAIN Last Admin: 12/27/19 05:56 Dose: 650 mg Albuterol/Ipratropium (Duoneb -) 1 amp NEB RQID [facility] Last Admin: 12/26/19 20:24 Dose: 1 amp Enoxaparin Sodium (Lovenox -) 40 mg SQ DAILY [facility] Last Admin: 12/26/19 09:51 Dose: 40 mg Ceftriaxone Sodium 2 gm/ (Dextrose) 100 mls @ 100 mls/hr IVPB DAILY [facility]; Protocol Last Admin: 12/26/19 09:51 Dose: 100 mls/hr Potassium Chloride/Dextrose/Sod Cl (D5-1/2ns+20 Meq Kcl -) 20 meq in 1,000 mls @ 50 mls/hr IV ASDIR [facility] Last Admin: 12/26/19 15:00 Dose: 50 mls/hr Insulin Aspart (Novolog Vial Sliding Scale -) 1 vial SQ TIDAC [facility]; Protocol Last Admin: 12/27/19 06:07 Dose: Not Given Oseltamivir Phosphate (Tamiflu -) 30 mg PO BID [facility] Stop: 12/27/19 14:27 Last Admin: 12/26/19 21:09 Dose: 30 mg - Objective Vital Signs: Vital Signs Temperature 98.1 F 12/27/19 06:00 Pulse Rate 84 12/27/19 06:00 Respiratory Rate 20 12/27/19 06:00 Blood Pressure 150/73 12/27/19 06:00 O2 Sat by Pulse Oximetry (%) 91 L 12/26/19 20:08 Constitutional: Yes: Well Nourished, No Distress, Calm Eyes: Yes: Conjunctiva Clear, EOM Intact HENT: Yes: Atraumatic, Normocephalic Neck: Yes: Supple, Trachea Midline Cardiovascular: Yes: Regular Rate and Rhythm Respiratory: Yes: Regular, Cough, On Nasal O2, Rhonchi, SOB, SOB on Exertion, Wheezes Gastrointestinal: Yes: Normal Bowel Sounds, Soft ...Rectal Exam: Yes: Deferred Genitourinary: Yes: WNL Breast(s): Yes: WNL Musculoskeletal: Yes: WNL Extremities: Yes: WNL Edema: No Peripheral Pulses WNL: Yes Peripheral Pulses: Left Radial: 2+, Right Radial: 2+, Left Doralis Pedis: 2+, Right Dorsalis Pedis: 2+, Left Femoral: 2+, Right Femoral: 2+ Integumentary: Yes: WNL Neurological: Yes: Alert, Oriented ...Motor Strength: WNL Psychiatric: Yes: Alert, Oriented Labs: CBC, BMP 12/27/19 05:25 - ....Imaging Other: Report Reviewed (Lab data reviewed) Problem List - Problems (1) NSTEMI (non-ST elevated myocardial infarction) Code(s): I21.4 - NON-ST ELEVATION (NSTEMI) MYOCARDIAL INFARCTION (2) Shortness of breath Code(s): R06.02 - SHORTNESS OF BREATH (3) Anemia Code(s): D64.9 - ANEMIA, UNSPECIFIED Qualifiers: Other causes of anemia: chronic disease, other (4) Back pain Code(s): M54.9 - DORSALGIA, UNSPECIFIED Qualifiers: Back pain location: low back pain Back pain laterality: bilateral (5) Chronic pain Code(s): G89.29 - OTHER CHRONIC PAIN (6) HTN (hypertension) Code(s): I10 - ESSENTIAL (PRIMARY) HYPERTENSION Qualifiers: Hypertension type: essential hypertension Qualified Code(s): I10 - Essential (primary) hypertension (7) Acute sepsis Code(s): A41.9 - SEPSIS, UNSPECIFIED ORGANISM (8) Acute pneumonia Code(s): J18.9 - PNEUMONIA, UNSPECIFIED ORGANISM (9) Acute respiratory failure Code(s): J96.00 - ACUTE RESPIRATORY FAILURE, UNSP W HYPOXIA OR HYPERCAPNIA (10) Neutrophilic leukocytosis Code(s): D72.9 - DISORDER OF WHITE BLOOD CELLS, UNSPECIFIED (11) Chest pain Code(s): R07.9 - CHEST PAIN, UNSPECIFIED (12) Cholelithiasis Code(s): K80.20 - CALCULUS OF GALLBLADDER W/O CHOLECYSTITIS W/O OBSTRUCTION (13) Haemophilus infection Code(s): A49.2 - HEMOPHILUS INFLUENZAE INFECTION, UNSPECIFIED SITE (14) Bacteremia due to Gram-negative bacteria Code(s): R78.81 - BACTEREMIA (15) RUQ abdominal pain Code(s): R10.11 - RIGHT UPPER QUADRANT PAIN (16) History of immunocompromised state Code(s): Z86.2 - PRSNL HISTORY OF DIS OF THE BLD/BLD-FORM ORG/IMMUN MECHNSM (17) Influenza Code(s): J11.1 - FLU DUE TO UNIDENTIFIED INFLUENZA VIRUS W OTH RESP MANIFEST Assessment/Plan Assessment/plan: acute bilateral pneumonia, acute Haemophilus Beta lactamase positive bacteremia, acute sepsis, acute dyspnea and tachypnea, acute productive cough, acute right anterior lower chest pain (cholelithiasis), acute dehydration; IV fluids, IV Ceftriaxone as per ID, bronchodilators, incentive spirometer, physical therapy, SCDS, DVT prophylaxis, fall precautions, droplet precautions, oxygen 3L/min via nasal cannula, sliding scale regular insulin coverage.
[2019-12-27] MEDS: ALBUTEROL SO4 2.5/IPRATROPIUM 0.5 INH SOL 3 ML VIAL.NEB. NEB SCH ×4 (07:50→20:26)
[2019-12-27] MEDS ORDERED: PT OWN MED DRAWER 7, Y5N ONE (08:12)
[2019-12-27] MEDS ORDERED: DEXTROSE 5%-WATER 100 ML IVPB ONE (08:13)
[2019-12-27] MEDS: OSELTAMIVIR PHOSPHATE 30 MG CAPSULE PO SCH (09:21)
[2019-12-27] MEDS: ENOXAPARIN NA (PORCINE) 40 MG/0.4 ML DISP.SYRIN SQ SCH (09:22)
[2019-12-27] MEDS: CEFTRIAXONE 2 GM in DEXTROSE 5%-WATER 100 ML IVPB SCH (09:22)
[2019-12-27 11:00] LABS: ANISOCYTOSIS 1+; MACROCYTOSIS 1+; PLATELET ESTIMATE NORMAL
--- NOTE | 2019-12-27 11:29 | PN ---
Progress Note (short form) - Note Progress Note: s: no chest pain, palps, dizziness, dyspnea tele: sinus Current Medications Acetaminophen (Tylenol -) 650 mg PO Q6H PRN PRN Reason: MODERATE PAIN Last Admin: 12/27/19 05:56 Dose: 650 mg Albuterol/Ipratropium (Duoneb -) 1 amp NEB RQID [facility] Last Admin: 12/27/19 07:50 Dose: 1 amp Enoxaparin Sodium (Lovenox -) 40 mg SQ DAILY [facility] Last Admin: 12/27/19 09:22 Dose: 40 mg Ceftriaxone Sodium 2 gm/ (Dextrose) 100 mls @ 100 mls/hr IVPB DAILY [facility]; Protocol Last Admin: 12/27/19 09:22 Dose: 100 mls/hr Potassium Chloride/Dextrose/Sod Cl (D5-1/2ns+20 Meq Kcl -) 20 meq in 1,000 mls @ 50 mls/hr IV ASDIR [facility] Last Admin: 12/26/19 15:00 Dose: 50 mls/hr Insulin Aspart (Novolog Vial Sliding Scale -) 1 vial SQ TIDAC [facility]; Protocol Last Admin: 12/27/19 06:07 Dose: Not Given Oseltamivir Phosphate (Tamiflu -) 30 mg PO BID [facility] Stop: 12/27/19 14:27 Last Admin: 12/27/19 09:21 Dose: 30 mg Vital Signs Period Temp Pulse Resp BP Sys/Anand Pulse Ox Last 24 Hr 98.0 F-99.9 F 83-99 18-20 138-150/55-81 91-97 Constitutional: Yes: No Distress Eyes: Yes: Conjunctiva Clear, EOM Intact Cardiovascular: Yes: Regular Rate and Rhythm Respiratory: Yes: Rhonchi, Other (diffuse mild rhonchi with decreased basilar breath sounds, no active wheezing) Gastrointestinal: Yes: Soft, Abdomen, Obese Edema: No Neurological: Yes: Alert, Oriented no jaundice, diaphoresis not agitated Assessment/Plan EKG:sinus tach, no ischemic changes CT chest: shine pneumonic infiltrates, mild bronchiectatic changes in lower lobes , cannot exclue congestion or chronic ILD elevated trop: - EKG no ischemic changes - flat trend, indeterminate range, likely demand in setting of PNA, no signs acs - echo with nl lvef, no sig valve abnormalities - recommend nuclear stress when recovers, either prior to discharge or as outpatient. PNA, flu: - manage per primary HTN: - cont home meds anemia: - manage per primary NSVT - nl EF here - replete lytes for K>4, Mg>2 dc tele
--- NOTE | 2019-12-27 12:08 | PN ---
Progress Note (short form) - Note Progress Note: Breathing is improving. No CP or SOB. No acute events overnight. CXR: Improving infiltrates Intake & Output 12/24/19 12/25/19 12/26/19 12/27/19 23:59 23:59 23:59 23:59 Intake Total 440 1380 1790 400 Balance 440 1380 1790 400 Last Vital Signs Temp Pulse Resp BP Pulse Ox 98.1 F 84 20 150/73 97 12/27/19 06:00 12/27/19 06:00 12/27/19 06:00 12/27/19 06:00 12/27/19 07:50 Active Medications Acetaminophen (Tylenol -) 650 mg PO Q6H PRN PRN Reason: MODERATE PAIN Last Admin: 12/27/19 05:56 Dose: 650 mg Albuterol/Ipratropium (Duoneb -) 1 amp NEB RQID [facility] Last Admin: 12/27/19 11:50 Dose: 1 amp Enoxaparin Sodium (Lovenox -) 40 mg SQ DAILY [facility] Last Admin: 12/27/19 09:22 Dose: 40 mg Ceftriaxone Sodium 2 gm/ (Dextrose) 100 mls @ 100 mls/hr IVPB DAILY [facility]; Protocol Last Admin: 12/27/19 09:22 Dose: 100 mls/hr Potassium Chloride/Dextrose/Sod Cl (D5-1/2ns+20 Meq Kcl -) 20 meq in 1,000 mls @ 50 mls/hr IV ASDIR [facility] Last Admin: 12/26/19 15:00 Dose: 50 mls/hr Insulin Aspart (Novolog Vial Sliding Scale -) 1 vial SQ TIDAC [facility]; Protocol Last Admin: 12/27/19 06:07 Dose: Not Given Oseltamivir Phosphate (Tamiflu -) 30 mg PO BID [facility] Stop: 12/27/19 14:27 Last Admin: 12/27/19 09:21 Dose: 30 mg Constitutional: Yes: NAD Eyes: Yes: WNL HENT: Yes: WNL Neck: Yes: WNL Cardiovascular: Yes: Regular Rate and Rhythm, S1, S2 Respiratory: Yes: Few scattered rhonchi Gastrointestinal: Yes: Normal Bowel Sounds, Soft Extremities: Yes: WNL Edema: No Labs: Laboratory Results - last 24 hr 12/26/19 12/26/19 12/27/19 11:59 17:08 05:25 WBC 8.9 RBC 3.68 Hgb 9.2 L Hct 29.4 L MCV 79.9 L MCH 25.1 L MCHC 31.4 L RDW 20.9 H Plt Count 330 MPV 8.5 Absolute Neuts (auto) 5.1 Neutrophils % 56.7 D Neutrophils % (Manual) 57.7 Band Neutrophils % 0.9 Lymphocytes % 26.7 D Lymphocytes % (Manual) 18.3 Monocytes % 7.4 Monocytes % (Manual) 6 D Eosinophils % 8.8 H D Eosinophils % (Manual) 8.6 H Basophils % 0.4 Basophils % (Manual) 0.0 Myelocytes % (Man) 1 Promyelocytes % (Man) 0 Blast Cells % (Manual) 0 Nucleated RBC % 0 Metamyelocytes 5 H D Hypochromia 0 Platelet Estimate Normal Polychromasia 1+ Poikilocytosis 0 Anisocytosis 1+ Microcytosis 0 Macrocytosis 1+ Sodium Potassium Chloride Carbon Dioxide Anion Gap BUN Creatinine Est GFR (CKD-EPI)AfAm Est GFR (CKD-EPI)NonAf POC Glucometer 148 135 Random Glucose Calcium Magnesium Total Bilirubin AST ALT Alkaline Phosphatase Total Protein Albumin 12/27/19 12/27/19 05:25 06:01 WBC RBC Hgb Hct MCV MCH MCHC RDW Plt Count MPV Absolute Neuts (auto) Neutrophils % Neutrophils % (Manual) Band Neutrophils % Lymphocytes % Lymphocytes % (Manual) Monocytes % Monocytes % (Manual) Eosinophils % Eosinophils % (Manual) Basophils % Basophils % (Manual) Myelocytes % (Man) Promyelocytes % (Man) Blast Cells % (Manual) Nucleated RBC % Metamyelocytes Hypochromia Platelet Estimate Polychromasia Poikilocytosis Anisocytosis Microcytosis Macrocytosis Sodium 142 Potassium 4.8 Chloride 105 Carbon Dioxide 34 H Anion Gap 2 L BUN 8.7 Creatinine 0.6 Est GFR (CKD-EPI)AfAm 102.62 Est GFR (CKD-EPI)NonAf 88.54 POC Glucometer 104 Random Glucose 103 Calcium 8.4 L Magnesium 2.0 Total Bilirubin 0.5 AST 13 L ALT 16 Alkaline Phosphatase 84 Total Protein 5.8 L Albumin 2.2 L Assessment/Plan Problem List - Problems (1) Influenza Code(s): J11.1 - FLU DUE TO UNIDENTIFIED INFLUENZA VIRUS W OTH RESP MANIFEST (2) Acute pneumonia Code(s): J18.9 - PNEUMONIA, UNSPECIFIED ORGANISM (3) Shortness of breath Code(s): R06.02 - SHORTNESS OF BREATH (4) Anemia Code(s): D64.9 - ANEMIA, UNSPECIFIED Qualifiers: Other causes of anemia: chronic disease, other (5) Back pain Code(s): M54.9 - DORSALGIA, UNSPECIFIED Qualifiers: Back pain location: low back pain Back pain laterality: bilateral (6) Chronic pain Code(s): G89.29 - OTHER CHRONIC PAIN (7) HTN (hypertension) Code(s): I10 - ESSENTIAL (PRIMARY) HYPERTENSION Qualifiers: Hypertension type: essential hypertension Qualified Code(s): I10 - Essential (primary) hypertension (8) Spinal stenosis Code(s): M48.00 - SPINAL STENOSIS, SITE UNSPECIFIED Qualifiers: Spinal region: lumbosacral Qualified Code(s): M48.07 - Spinal stenosis, lumbosacral region (9) Bacteremia Assessment/Plan Tamiflu ABX as per ID O2 VTE prophylaxis Will need repeat imaging as an outpatient to ensure resolution of infiltrates in this immunocompromised host BD TX Dr Hewitt Problem List - Problems (1) Influenza Code(s): J11.1 - FLU DUE TO UNIDENTIFIED INFLUENZA VIRUS W OTH RESP MANIFEST (2) Acute pneumonia Code(s): J18.9 - PNEUMONIA, UNSPECIFIED ORGANISM (3) Shortness of breath Code(s): R06.02 - SHORTNESS OF BREATH (4) Anemia Code(s): D64.9 - ANEMIA, UNSPECIFIED Qualifiers: Other causes of anemia: chronic disease, other (5) Back pain Code(s): M54.9 - DORSALGIA, UNSPECIFIED Qualifiers: Back pain location: low back pain Back pain laterality: bilateral (6) Chronic pain Code(s): G89.29 - OTHER CHRONIC PAIN (7) HTN (hypertension) Code(s): I10 - ESSENTIAL (PRIMARY) HYPERTENSION Qualifiers: Hypertension type: essential hypertension Qualified Code(s): I10 - Essential (primary) hypertension (8) Spinal stenosis Code(s): M48.00 - SPINAL STENOSIS, SITE UNSPECIFIED Qualifiers: Spinal region: lumbosacral Qualified Code(s): M48.07 - Spinal stenosis, lumbosacral region
[2019-12-27] MEDS: D5-1/2NS+20 MEQ KCL - 20 MEQ/1,000 ML INFUS.BAG IV SCH (17:46)
[2019-12-28 06:59] LABS: BASO % 0.8 % (0-2.0); HEMATOCRIT 31.9 % (32.4-45.2); HEMOGLOBIN 9.8 GM/dL (10.7-15.3); LYMPH % 26.5 % (8-40); MCH 25.1 pg (25.7-33.7); MCHC 30.8 g/dl (32.0-36.0); MEAN CELL VOLUME 81.6 fl (80-96); MEAN PLT VOLUME 8.8 fl (7.5-11.1); MONO % 7.1 % (3.8-10.2); NEUT % 57.6 % (42.8-82.8); PLATELET COUNT 354 K/MM3 (134-434); RDW 21.6 % (11.6-15.6); WHITE BLOOD COUNT 8.2 K/mm3 (4.0-10.0)
[2019-12-28] MEDS: INSULIN SLIDING SCALE (NOVOLOG) 1 VIAL SQ SCH ×4 (07:38→16:30)
[2019-12-28] MEDS ORDERED: DEXTROSE 5%-WATER 100 ML IVPB ONE (08:22)
[2019-12-28] MEDS: ALBUTEROL SO4 2.5/IPRATROPIUM 0.5 INH SOL 3 ML VIAL.NEB. NEB SCH ×4 (08:27→20:26)
--- NOTE | 2019-12-28 09:12 | PN ---
Progress Note, Physician Chief Complaint: Patient seen and examined at the bedside, diminishing shortness of breath, intermittent RUQ abdominal pain, no labored breathing, cough, no acute events from last night. History of Present Illness: This 74 yr old female with hx of rheumatoid arthritis, and HTN admitted via ER with an acutely severe dyspnea and tachypnea, acute productive cough, and an acute right anterior lower chest pain. During hospital stay patient had an abdominal ultrasound done which revealed chelelithiasis. - Current Medication List Current Medications: Active Medications Acetaminophen (Tylenol -) 650 mg PO Q6H PRN PRN Reason: MODERATE PAIN Last Admin: 12/27/19 19:56 Dose: 650 mg Albuterol/Ipratropium (Duoneb -) 1 amp NEB RQID [facility] Last Admin: 12/28/19 08:27 Dose: 1 amp Enoxaparin Sodium (Lovenox -) 40 mg SQ DAILY [facility] Last Admin: 12/27/19 09:22 Dose: 40 mg Ceftriaxone Sodium 2 gm/ (Dextrose) 100 mls @ 100 mls/hr IVPB DAILY [facility]; Protocol Last Admin: 12/27/19 09:22 Dose: 100 mls/hr Potassium Chloride/Dextrose/Sod Cl (D5-1/2ns+20 Meq Kcl -) 20 meq in 1,000 mls @ 50 mls/hr IV ASDIR [facility] Last Admin: 12/27/19 17:46 Dose: 50 mls/hr Insulin Aspart (Novolog Vial Sliding Scale -) 1 vial SQ TIDAC [facility]; Protocol Last Admin: 12/28/19 08:53 Dose: Not Given - Objective Vital Signs: Vital Signs Temperature 98.1 F 12/28/19 06:00 Pulse Rate 79 12/28/19 06:00 Respiratory Rate 20 12/28/19 06:00 Blood Pressure 137/73 12/28/19 06:00 O2 Sat by Pulse Oximetry (%) 98 12/28/19 08:26 Constitutional: Yes: Well Nourished, Calm, Mild Distress Eyes: Yes: Conjunctiva Clear, EOM Intact HENT: Yes: Atraumatic, Normocephalic Neck: Yes: Supple, Trachea Midline Cardiovascular: Yes: Regular Rate and Rhythm Respiratory: Yes: Regular, Cough, Diminished, On Nasal O2, Orthopnea, Rhonchi, SOB, SOB on Exertion, Tachypnea, Wheezes Gastrointestinal: Yes: Normal Bowel Sounds, Soft, Other (RUQ tenderness) ...Rectal Exam: Yes: Deferred Genitourinary: Yes: WNL Breast(s): Yes: WNL Musculoskeletal: Yes: Muscle Weakness Edema: No Peripheral Pulses WNL: Yes Peripheral Pulses: Left Radial: 2+, Right Radial: 2+, Left Doralis Pedis: 2+, Right Dorsalis Pedis: 2+, Left Femoral: 2+, Right Femoral: 2+ Integumentary: Yes: WNL Neurological: Yes: Alert ...Motor Strength: LLE (muscle weakness), RLE (muscle weakness) Psychiatric: Yes: Alert, Oriented Labs: CBC, BMP 12/28/19 05:30 12/27/19 05:25 - ....Imaging Other: Report Reviewed (Lab data reviewed) Problem List - Problems (1) NSTEMI (non-ST elevated myocardial infarction) Code(s): I21.4 - NON-ST ELEVATION (NSTEMI) MYOCARDIAL INFARCTION (2) Shortness of breath Code(s): R06.02 - SHORTNESS OF BREATH (3) Anemia Code(s): D64.9 - ANEMIA, UNSPECIFIED Qualifiers: Other causes of anemia: chronic disease, other (4) Back pain Code(s): M54.9 - DORSALGIA, UNSPECIFIED Qualifiers: Back pain location: low back pain Back pain laterality: bilateral (5) Chronic pain Code(s): G89.29 - OTHER CHRONIC PAIN (6) HTN (hypertension) Code(s): I10 - ESSENTIAL (PRIMARY) HYPERTENSION Qualifiers: Hypertension type: essential hypertension Qualified Code(s): I10 - Essential (primary) hypertension (7) Acute sepsis Code(s): A41.9 - SEPSIS, UNSPECIFIED ORGANISM (8) Acute pneumonia Code(s): J18.9 - PNEUMONIA, UNSPECIFIED ORGANISM (9) Acute respiratory failure Code(s): J96.00 - ACUTE RESPIRATORY FAILURE, UNSP W HYPOXIA OR HYPERCAPNIA (10) Neutrophilic leukocytosis Code(s): D72.9 - DISORDER OF WHITE BLOOD CELLS, UNSPECIFIED (11) Chest pain Code(s): R07.9 - CHEST PAIN, UNSPECIFIED (12) Cholelithiasis Code(s): K80.20 - CALCULUS OF GALLBLADDER W/O CHOLECYSTITIS W/O OBSTRUCTION (13) Haemophilus infection Code(s): A49.2 - HEMOPHILUS INFLUENZAE INFECTION, UNSPECIFIED SITE (14) Bacteremia due to Gram-negative bacteria Code(s): R78.81 - BACTEREMIA (15) RUQ abdominal pain Code(s): R10.11 - RIGHT UPPER QUADRANT PAIN (16) History of immunocompromised state Code(s): Z86.2 - PRSNL HISTORY OF DIS OF THE BLD/BLD-FORM ORG/IMMUN MECHNSM (17) Influenza Code(s): J11.1 - FLU DUE TO UNIDENTIFIED INFLUENZA VIRUS W OTH RESP MANIFEST Assessment/Plan Assessment/plan: acute Haemophilus Beta lactamase positive bacteremia, acute sepsis, acute bilateral pneumonia, acute dyspnea, acute productive cough, acute wheezing, acute intermittent RUQ abdominal pain; IV fluids, IV Ceftriaxone as per ID, bronchodilators, oral Tylenol, sliding scale regular insulin coverage, DVT prophylaxis, physical therapy, fall precautions, droplet precautions, incentive spirometer, SCDS, oxygen 3L/min via nasal cannula.
[2019-12-28] MEDS: ENOXAPARIN NA (PORCINE) 40 MG/0.4 ML DISP.SYRIN SQ SCH (09:58)
[2019-12-28] MEDS: CEFTRIAXONE 2 GM in DEXTROSE 5%-WATER 100 ML IVPB SCH (09:59)
[2019-12-28 10:38] LABS: ANISOCYTOSIS 1+; MACROCYTOSIS 0; PLATELET ESTIMATE NORMAL; TARGET CELLS 2+
--- NOTE | 2019-12-28 11:01 | PN ---
Progress Note (short form) - Note Progress Note: Breathing is improving. No CP or SOB. No acute events overnight. Intake & Output 12/25/19 12/26/19 12/27/19 12/28/19 23:59 23:59 23:59 23:59 Intake Total 1380 1790 800 600 Balance 1380 1790 800 600 Last Vital Signs Temp Pulse Resp BP Pulse Ox 98.8 F 97 H 20 143/74 98 12/28/19 10:00 12/28/19 10:00 12/28/19 10:00 12/28/19 10:00 12/28/19 08:26 Active Medications Acetaminophen (Tylenol -) 650 mg PO Q6H PRN PRN Reason: MODERATE PAIN Last Admin: 12/27/19 19:56 Dose: 650 mg Albuterol/Ipratropium (Duoneb -) 1 amp NEB RQID [facility] Last Admin: 12/28/19 08:27 Dose: 1 amp Enoxaparin Sodium (Lovenox -) 40 mg SQ DAILY [facility] Last Admin: 12/28/19 09:58 Dose: 40 mg Ceftriaxone Sodium 2 gm/ (Dextrose) 100 mls @ 100 mls/hr IVPB DAILY [facility]; Protocol Last Admin: 12/28/19 09:59 Dose: 100 mls/hr Potassium Chloride/Dextrose/Sod Cl (D5-1/2ns+20 Meq Kcl -) 20 meq in 1,000 mls @ 50 mls/hr IV ASDIR [facility] Last Admin: 12/27/19 17:46 Dose: 50 mls/hr Insulin Aspart (Novolog Vial Sliding Scale -) 1 vial SQ TIDAC [facility]; Protocol Last Admin: 12/28/19 10:56 Dose: Not Given Constitutional: Yes: NAD Eyes: Yes: WNL HENT: Yes: WNL Neck: Yes: WNL Cardiovascular: Yes: Regular Rate and Rhythm, S1, S2 Respiratory: Yes: Few scattered rhonchi Gastrointestinal: Yes: Normal Bowel Sounds, Soft Extremities: Yes: WNL Edema: No Labs: Laboratory Results - last 24 hr 12/27/19 12/27/19 12/28/19 05:25 17:40 05:30 WBC 8.2 RBC 3.90 Hgb 9.8 L Hct 31.9 L MCV 81.6 MCH 25.1 L MCHC 30.8 L RDW 21.6 H Plt Count 354 MPV 8.8 Absolute Neuts (auto) 4.7 Neutrophils % 57.6 Neutrophils % (Manual) 57.7 49.0 Band Neutrophils % 0.9 0.0 Lymphocytes % 26.5 Lymphocytes % (Manual) 18.3 33.3 D Monocytes % 7.1 Monocytes % (Manual) 6 D 4 Eosinophils % 8.0 H Eosinophils % (Manual) 8.6 H 5.2 H Basophils % 0.8 Basophils % (Manual) 0.0 1.0 D Myelocytes % (Man) 1 0 D Promyelocytes % (Man) 0 0 Blast Cells % (Manual) 0 0 Nucleated RBC % 0 Metamyelocytes 5 H D 1 D Hypochromia 0 0 Platelet Estimate Normal Normal Polychromasia 1+ 1+ Poikilocytosis 0 0 Anisocytosis 1+ 1+ Microcytosis 0 1+ Macrocytosis 1+ 0 Target Cells 2+ POC Glucometer 130 12/28/19 12/28/19 06:24 10:56 WBC RBC Hgb Hct MCV MCH MCHC RDW Plt Count MPV Absolute Neuts (auto) Neutrophils % Neutrophils % (Manual) Band Neutrophils % Lymphocytes % Lymphocytes % (Manual) Monocytes % Monocytes % (Manual) Eosinophils % Eosinophils % (Manual) Basophils % Basophils % (Manual) Myelocytes % (Man) Promyelocytes % (Man) Blast Cells % (Manual) Nucleated RBC % Metamyelocytes Hypochromia Platelet Estimate Polychromasia Poikilocytosis Anisocytosis Microcytosis Macrocytosis Target Cells POC Glucometer 90 92 Assessment/Plan Problem List - Problems (1) Influenza Code(s): J11.1 - FLU DUE TO UNIDENTIFIED INFLUENZA VIRUS W OTH RESP MANIFEST (2) Acute pneumonia Code(s): J18.9 - PNEUMONIA, UNSPECIFIED ORGANISM (3) Shortness of breath Code(s): R06.02 - SHORTNESS OF BREATH (4) Anemia Code(s): D64.9 - ANEMIA, UNSPECIFIED Qualifiers: Other causes of anemia: chronic disease, other (5) Back pain Code(s): M54.9 - DORSALGIA, UNSPECIFIED Qualifiers: Back pain location: low back pain Back pain laterality: bilateral (6) Chronic pain Code(s): G89.29 - OTHER CHRONIC PAIN (7) HTN (hypertension) Code(s): I10 - ESSENTIAL (PRIMARY) HYPERTENSION Qualifiers: Hypertension type: essential hypertension Qualified Code(s): I10 - Essential (primary) hypertension (8) Spinal stenosis Code(s): M48.00 - SPINAL STENOSIS, SITE UNSPECIFIED Qualifiers: Spinal region: lumbosacral Qualified Code(s): M48.07 - Spinal stenosis, lumbosacral region (9) Bacteremia Assessment/Plan Tamiflu completed ABX as per ID O2 VTE prophylaxis Will need repeat imaging as an outpatient to ensure resolution of infiltrates in this immunocompromised host BD TX Dr Hewitt Problem List - Problems (1) Influenza Code(s): J11.1 - FLU DUE TO UNIDENTIFIED INFLUENZA VIRUS W OTH RESP MANIFEST (2) Acute pneumonia Code(s): J18.9 - PNEUMONIA, UNSPECIFIED ORGANISM (3) Shortness of breath Code(s): R06.02 - SHORTNESS OF BREATH (4) Anemia Code(s): D64.9 - ANEMIA, UNSPECIFIED Qualifiers: Other causes of anemia: chronic disease, other (5) Back pain Code(s): M54.9 - DORSALGIA, UNSPECIFIED Qualifiers: Back pain location: low back pain Back pain laterality: bilateral (6) Chronic pain Code(s): G89.29 - OTHER CHRONIC PAIN (7) HTN (hypertension) Code(s): I10 - ESSENTIAL (PRIMARY) HYPERTENSION Qualifiers: Hypertension type: essential hypertension Qualified Code(s): I10 - Essential (primary) hypertension (8) Spinal stenosis Code(s): M48.00 - SPINAL STENOSIS, SITE UNSPECIFIED Qualifiers: Spinal region: lumbosacral Qualified Code(s): M48.07 - Spinal stenosis, lumbosacral region
--- NOTE | 2019-12-28 11:11 | PN ---
Progress Note (short form) - Note Progress Note: s: no chest pain, palps, dizziness, dyspnea Current Medications Acetaminophen (Tylenol -) 650 mg PO Q6H PRN PRN Reason: MODERATE PAIN Last Admin: 12/27/19 19:56 Dose: 650 mg Albuterol/Ipratropium (Duoneb -) 1 amp NEB RQID [facility] Last Admin: 12/28/19 08:27 Dose: 1 amp Enoxaparin Sodium (Lovenox -) 40 mg SQ DAILY [facility] Last Admin: 12/28/19 09:58 Dose: 40 mg Ceftriaxone Sodium 2 gm/ (Dextrose) 100 mls @ 100 mls/hr IVPB DAILY [facility]; Protocol Last Admin: 12/28/19 09:59 Dose: 100 mls/hr Potassium Chloride/Dextrose/Sod Cl (D5-1/2ns+20 Meq Kcl -) 20 meq in 1,000 mls @ 50 mls/hr IV ASDIR [facility] Last Admin: 12/27/19 17:46 Dose: 50 mls/hr Insulin Aspart (Novolog Vial Sliding Scale -) 1 vial SQ TIDAC [facility]; Protocol Last Admin: 12/28/19 10:56 Dose: Not Given Vital Signs Period Temp Pulse Resp BP Sys/Anand Pulse Ox Last 24 Hr 98.1 F-98.8 F 79-97 18-20 135-154/58-77 98-98 Constitutional: Yes: No Distress Eyes: Yes: Conjunctiva Clear, EOM Intact Cardiovascular: Yes: Regular Rate and Rhythm Respiratory: Yes: Rhonchi, Other (diffuse mild rhonchi with decreased basilar breath sounds, no active wheezing) Gastrointestinal: Yes: Soft, Abdomen, Obese Edema: No Neurological: Yes: Alert, Oriented no jaundice, diaphoresis not agitated Assessment/Plan EKG:sinus tach, no ischemic changes CT chest: shine pneumonic infiltrates, mild bronchiectatic changes in lower lobes , cannot exclue congestion or chronic ILD elevated trop: - EKG no ischemic changes - flat trend, indeterminate range, likely demand in setting of PNA, no signs acs - echo with nl lvef, no sig valve abnormalities - recommend nuclear stress when recovers, can be done as outpatient. PNA, flu: - manage per primary HTN: - cont home meds anemia: - manage per primary NSVT - nl EF here - replete lytes for K>4, Mg>2
[2019-12-28] MEDS: D5-1/2NS+20 MEQ KCL - 20 MEQ/1,000 ML INFUS.BAG IV SCH (13:00)
[2019-12-28] MEDS: ACETAMINOPHEN 325 MG TABLET (FP) PO PRN ×2 (15:34→21:08)
[2019-12-29] MEDS ORDERED: ONDANSETRON 4 MG/2 ML VIAL IVPUSH PRN (00:25)
[2019-12-29] MEDS ORDERED: SIMETHICONE 80 MG TAB.CHEW (FP) PO ONE ×2 (01:30→22:00)
[2019-12-29] MEDS: PANTOPRAZOLE SODIUM 40 MG VIAL IVPUSH SCH ×2 (01:32→10:12)
[2019-12-29] MEDS: INSULIN SLIDING SCALE (NOVOLOG) 1 VIAL SQ SCH ×3 (06:15→17:02)
[2019-12-29] MEDS: ALBUTEROL SO4 2.5/IPRATROPIUM 0.5 INH SOL 3 ML VIAL.NEB. NEB SCH (07:37)
--- NOTE | 2019-12-29 08:29 | PN ---
Progress Note, Physician Chief Complaint: Patient seen and examined at the bedside, acute nausea, vomiting, and epigastric pain last night, at present c/o nausea and minimal vomiting, pain of posterior right lower chest wall. History of Present Illness: This 74 yr old female with hx of rheumatoid arthritis, and HTN admitted via ER with acutely severe dyspnea and tachypnea, acute productive cough, acute bilateral pneumonia, and an acute anterior lower right sided chest pain. During hospital stay patient had undergone abdominal ultrasound which revealed cholelithiasis. - Current Medication List Current Medications: Active Medications Acetaminophen (Tylenol -) 650 mg PO Q6H PRN PRN Reason: MODERATE PAIN Last Admin: 12/28/19 21:08 Dose: 650 mg Albuterol/Ipratropium (Duoneb -) 1 amp NEB RQID [facility] Last Admin: 12/28/19 20:26 Dose: 1 amp Enoxaparin Sodium (Lovenox -) 40 mg SQ DAILY [facility] Last Admin: 12/28/19 09:58 Dose: 40 mg Ceftriaxone Sodium 2 gm/ (Dextrose) 100 mls @ 100 mls/hr IVPB DAILY [facility]; Protocol Last Admin: 12/28/19 09:59 Dose: 100 mls/hr Potassium Chloride/Dextrose/Sod Cl (D5-1/2ns+20 Meq Kcl -) 20 meq in 1,000 mls @ 50 mls/hr IV ASDIR [facility] Last Admin: 12/28/19 13:00 Dose: Not Given Insulin Aspart (Novolog Vial Sliding Scale -) 1 vial SQ TIDAC [facility]; Protocol Last Admin: 12/29/19 06:15 Dose: Not Given Ondansetron HCl (Zofran Injection) 4 mg IVPUSH Q8H PRN PRN Reason: NAUSEA Pantoprazole Sodium (Protonix Iv) 20 mg IVPUSH DAILY [facility] Last Admin: 12/29/19 01:32 Dose: 20 mg - Objective Vital Signs: Vital Signs Temperature 97.9 F 12/29/19 05:46 Pulse Rate 78 12/29/19 05:46 Respiratory Rate 18 12/29/19 05:46 Blood Pressure 120/51 L 12/29/19 05:46 O2 Sat by Pulse Oximetry (%) 98 12/28/19 21:00 Constitutional: Yes: Well Nourished, Mild Distress Eyes: Yes: Conjunctiva Clear, EOM Intact HENT: Yes: Atraumatic, Normocephalic Neck: Yes: Supple, Trachea Midline Cardiovascular: Yes: Regular Rate and Rhythm Respiratory: Yes: Regular, CTA Bilaterally Gastrointestinal: Yes: Normal Bowel Sounds, Soft, Vomiting (nausea), Other (no epigastric tenderness) ...Rectal Exam: Yes: Deferred Genitourinary: Yes: WNL Breast(s): Yes: WNL Musculoskeletal: Yes: Muscle Weakness Extremities: Yes: WNL Edema: No Peripheral Pulses WNL: Yes Peripheral Pulses: Left Radial: 2+, Right Radial: 2+, Left Doralis Pedis: 2+, Right Dorsalis Pedis: 2+ Integumentary: Yes: WNL Neurological: Yes: Alert, Oriented, Weakness ...Motor Strength: LLE (muscle weakness), RLE (muscle weakness) Psychiatric: Yes: Alert, Oriented Labs: CBC, BMP 12/28/19 05:30 12/27/19 05:25 - ....Imaging Other: Report Reviewed (Lab data reviewed) Problem List - Problems (1) NSTEMI (non-ST elevated myocardial infarction) Code(s): I21.4 - NON-ST ELEVATION (NSTEMI) MYOCARDIAL INFARCTION (2) Shortness of breath Code(s): R06.02 - SHORTNESS OF BREATH (3) Anemia Code(s): D64.9 - ANEMIA, UNSPECIFIED Qualifiers: Other causes of anemia: chronic disease, other (4) Back pain Code(s): M54.9 - DORSALGIA, UNSPECIFIED Qualifiers: Back pain location: low back pain Back pain laterality: bilateral (5) Chronic pain Code(s): G89.29 - OTHER CHRONIC PAIN (6) HTN (hypertension) Code(s): I10 - ESSENTIAL (PRIMARY) HYPERTENSION Qualifiers: Hypertension type: essential hypertension Qualified Code(s): I10 - Essential (primary) hypertension (7) Acute sepsis Code(s): A41.9 - SEPSIS, UNSPECIFIED ORGANISM (8) Acute pneumonia Code(s): J18.9 - PNEUMONIA, UNSPECIFIED ORGANISM (9) Acute respiratory failure Code(s): J96.00 - ACUTE RESPIRATORY FAILURE, UNSP W HYPOXIA OR HYPERCAPNIA (10) Neutrophilic leukocytosis Code(s): D72.9 - DISORDER OF WHITE BLOOD CELLS, UNSPECIFIED (11) Chest pain Code(s): R07.9 - CHEST PAIN, UNSPECIFIED (12) Cholelithiasis Code(s): K80.20 - CALCULUS OF GALLBLADDER W/O CHOLECYSTITIS W/O OBSTRUCTION (13) Haemophilus infection Code(s): A49.2 - HEMOPHILUS INFLUENZAE INFECTION, UNSPECIFIED SITE (14) Bacteremia due to Gram-negative bacteria Code(s): R78.81 - BACTEREMIA (15) RUQ abdominal pain Code(s): R10.11 - RIGHT UPPER QUADRANT PAIN (16) History of immunocompromised state Code(s): Z86.2 - PRSNL HISTORY OF DIS OF THE BLD/BLD-FORM ORG/IMMUN MECHNSM (17) Influenza Code(s): J11.1 - FLU DUE TO UNIDENTIFIED INFLUENZA VIRUS W OTH RESP MANIFEST (18) Epigastric abdominal pain Code(s): R10.13 - EPIGASTRIC PAIN (19) Nausea & vomiting Code(s): R11.2 - NAUSEA WITH VOMITING, UNSPECIFIED Assessment/Plan Assessment/plan: acute Haemophilus Beta lactamase positive bacteremia, acute sepsis, acute dyspnea and tachypnea, acute productive cough, acute bilateral pneumonia, acute posterior right lower chest wall pain, acute nausea and vomiting, acute epigastric abdominal pain; NPO, IV fluids, IV Ceftriaxone as per ID, IV Proonix, IV Zofran, DVT prophylaxis, physical therapy, incentive spirometer, fall precautions, dropet precautions, SCDS, bronchodilators, oxygen 3L/min via nasal cannula, sliding scale regular insulin coverage.
[2019-12-29] MEDS: D5-1/2NS+20 MEQ KCL - 20 MEQ/1,000 ML INFUS.BAG IV SCH (08:39)
[2019-12-29] MEDS: ONDANSETRON 4 MG/2 ML VIAL IVPUSH PRN ×2 (08:39→16:56)
[2019-12-29] MEDS ORDERED: DEXTROSE 5%-WATER 100 ML IVPB ONE (09:59)
[2019-12-29] MEDS: CEFTRIAXONE 2 GM in DEXTROSE 5%-WATER 100 ML IVPB SCH (10:12)
[2019-12-29] MEDS: ENOXAPARIN NA (PORCINE) 40 MG/0.4 ML DISP.SYRIN SQ SCH (10:12)
--- NOTE | 2019-12-29 10:59 | PN ---
Progress Note (short form) - Note Progress Note: s: no chest pain, palps, dizziness, dyspnea. nauseated overnight, feels better this morning Current Medications Acetaminophen (Tylenol -) 650 mg PO Q6H PRN PRN Reason: MODERATE PAIN Last Admin: 12/28/19 21:08 Dose: 650 mg Albuterol/Ipratropium (Duoneb -) 1 amp NEB RQID [facility] Last Admin: 12/29/19 07:37 Dose: 1 amp Enoxaparin Sodium (Lovenox -) 40 mg SQ DAILY [facility] Last Admin: 12/29/19 10:12 Dose: 40 mg Ceftriaxone Sodium 2 gm/ (Dextrose) 100 mls @ 100 mls/hr IVPB DAILY [facility]; Protocol Last Admin: 12/29/19 10:12 Dose: 100 mls/hr Potassium Chloride/Dextrose/Sod Cl (D5-1/2ns+20 Meq Kcl -) 20 meq in 1,000 mls @ 75 mls/hr IV ASDIR [facility] Last Admin: 12/29/19 08:39 Dose: 75 mls/hr Insulin Aspart (Novolog Vial Sliding Scale -) 1 vial SQ TIDAC [facility]; Protocol Last Admin: 12/29/19 06:15 Dose: Not Given Ondansetron HCl (Zofran Injection) 4 mg IVPUSH Q8H PRN PRN Reason: NAUSEA Last Admin: 12/29/19 08:39 Dose: 4 mg Pantoprazole Sodium (Protonix Iv) 20 mg IVPUSH DAILY [facility] Last Admin: 12/29/19 10:12 Dose: 20 mg Vital Signs Period Temp Pulse Resp BP Sys/Anand Pulse Ox Last 24 Hr 97.3 F-98.5 F 78-95 18-20 120-151/51-89 97-98 Constitutional: Yes: No Distress Eyes: Yes: Conjunctiva Clear, EOM Intact Cardiovascular: Yes: Regular Rate and Rhythm Respiratory: Yes: Rhonchi, Other (diffuse mild rhonchi with decreased basilar breath sounds, no active wheezing) Gastrointestinal: Yes: Soft, Abdomen, Obese Edema: No Neurological: Yes: Alert, Oriented no jaundice, diaphoresis not agitated Assessment/Plan EKG:sinus tach, no ischemic changes CT chest: shine pneumonic infiltrates, mild bronchiectatic changes in lower lobes , cannot exclue congestion or chronic ILD elevated trop: - EKG no ischemic changes - flat trend, indeterminate range, likely demand in setting of PNA, no signs acs - echo with nl lvef, no sig valve abnormalities - recommend nuclear stress when recovers, can be done as outpatient PNA, flu: - manage per primary, improving HTN: - cont home meds anemia: - manage per primary NSVT - nl EF here - replete lytes for K>4, Mg>2
--- NOTE | 2019-12-29 11:52 | PN ---
Progress Note, Physician History of Present Illness: PULMONARY ALERT,COMFORTABLE,OOB-CHAIR,SOB IMPROVING,C/O NAUSEA,EPIGASTRIC PAIN,+ VOMITING LAST NIGHT - Current Medication List Current Medications: Active Medications Acetaminophen (Tylenol -) 650 mg PO Q6H PRN PRN Reason: MODERATE PAIN Last Admin: 12/28/19 21:08 Dose: 650 mg Albuterol/Ipratropium (Duoneb -) 1 amp NEB RQID [facility] Last Admin: 12/29/19 07:37 Dose: 1 amp Enoxaparin Sodium (Lovenox -) 40 mg SQ DAILY [facility] Last Admin: 12/29/19 10:12 Dose: 40 mg Ceftriaxone Sodium 2 gm/ (Dextrose) 100 mls @ 100 mls/hr IVPB DAILY [facility]; Protocol Last Admin: 12/29/19 10:12 Dose: 100 mls/hr Potassium Chloride/Dextrose/Sod Cl (D5-1/2ns+20 Meq Kcl -) 20 meq in 1,000 mls @ 75 mls/hr IV ASDIR [facility] Last Admin: 12/29/19 08:39 Dose: 75 mls/hr Insulin Aspart (Novolog Vial Sliding Scale -) 1 vial SQ TIDAC [facility]; Protocol Last Admin: 12/29/19 06:15 Dose: Not Given Ondansetron HCl (Zofran Injection) 4 mg IVPUSH Q8H PRN PRN Reason: NAUSEA Last Admin: 12/29/19 08:39 Dose: 4 mg Pantoprazole Sodium (Protonix Iv) 20 mg IVPUSH DAILY [facility] Last Admin: 12/29/19 10:12 Dose: 20 mg - Objective Vital Signs: Vital Signs Temperature 98.4 F 12/29/19 08:25 Pulse Rate 91 H 12/29/19 08:25 Respiratory Rate 20 12/29/19 08:25 Blood Pressure 137/73 12/29/19 08:25 O2 Sat by Pulse Oximetry (%) 98 12/29/19 08:25 Constitutional: Yes: Well Nourished, Calm Eyes: Yes: WNL HENT: Yes: WNL Neck: Yes: WNL Cardiovascular: Yes: Regular Rate and Rhythm, S1, S2 Respiratory: Yes: Rhonchi (SCATTERED RHONCHI) Gastrointestinal: Yes: Normal Bowel Sounds, Soft Extremities: Yes: WNL Edema: Yes Labs: CBC, BMP 12/28/19 05:30 02/16/20 05:25 Assessment/Plan Assessment/Plan Problem List - Problems (1) Influenza Code(s): J11.1 - FLU DUE TO UNIDENTIFIED INFLUENZA VIRUS W OTH RESP MANIFEST (2) Acute pneumonia Code(s): J18.9 - PNEUMONIA, UNSPECIFIED ORGANISM (3) Shortness of breath Code(s): R06.02 - SHORTNESS OF BREATH (4) Anemia Code(s): D64.9 - ANEMIA, UNSPECIFIED Qualifiers: Other causes of anemia: chronic disease, other (5) Back pain Code(s): M54.9 - DORSALGIA, UNSPECIFIED Qualifiers: Back pain location: low back pain Back pain laterality: bilateral (6) Chronic pain Code(s): G89.29 - OTHER CHRONIC PAIN (7) HTN (hypertension) Code(s): I10 - ESSENTIAL (PRIMARY) HYPERTENSION Qualifiers: Hypertension type: essential hypertension Qualified Code(s): I10 - Essential (primary) hypertension (8) Spinal stenosis Code(s): M48.00 - SPINAL STENOSIS, SITE UNSPECIFIED Qualifiers: Spinal region: lumbosacral Qualified Code(s): M48.07 - Spinal stenosis, lumbosacral region 9 BACTEREMIA Assessment/Plan ABX as per ID O2 VTE prophylaxis Will need repeat imaging as an outpatient to ensure resolution of infiltrates in this immunocompromised host inhaled bronchodilators f/u chest x-ray am DR MOTA
--- NOTE | 2019-12-29 13:15 | PN ---
Progress Note (short form) - Note Progress Note: vomiting overnight no bm for 3 days still with right sided pain Vital Signs Period Temp Pulse Resp BP Sys/Anand Pulse Ox Last 24 Hr 97.3 F-98.5 F 78-95 18-20 120-151/51-86 97-98 cor-rrr lungs clear abd soft,right flank discomfort to deep palpation, no ruq pain to palpation ext no edema CBC, BMP 12/28/19 05:30 12/27/19 05:25 Microbiology 12/24/19 13:57 Blood - Peripheral Venous Blood Culture - Preliminary NO GROWTH OBTAINED AFTER 96 HOURS, INCUBATION TO CONTINUE FOR 1 DAYS. 12/24/19 13:50 Blood - Peripheral Venous Blood Culture - Preliminary NO GROWTH OBTAINED AFTER 96 HOURS, INCUBATION TO CONTINUE FOR 1 DAYS. 12/21/19 23:24 Blood - Peripheral Venous Blood Culture - Preliminary Haemophilus Influenzae Iii 12/21/19 23:24 Blood - Peripheral Venous Blood Culture - Final Haemophilus Influenzae Iii 12/23/19 15:35 Urine - Urine Clean Catch Urine Culture - Final NO GROWTH OBTAINED 12/23/19 15:35 Urine - Urine Clean Catch Legionella Antigen - Final 12/23/19 15:35 Urine - Urine Clean Catch Streptococcus pneumoniae Antigen ( M - Final sonogram +gallstones a/p flank pain- check lfts, consider repeat sonogram constipation noted pneumonia hemophilus bacteremia- betal lactamase positive- continue ceftriaxone day #8 check complements, check quantitative immunoglobins repeat blood cultures negative presumptive influenza- resp virus pcr-negative d/c droplet isolation Problem List - Problems (1) Acute pneumonia Code(s): J18.9 - PNEUMONIA, UNSPECIFIED ORGANISM (2) Influenza Code(s): J11.1 - FLU DUE TO UNIDENTIFIED INFLUENZA VIRUS W OTH RESP MANIFEST (3) History of immunocompromised state Code(s): Z86.2 - PRSNL HISTORY OF DIS OF THE BLD/BLD-FORM ORG/IMMUN MECHNSM
[2019-12-29] MEDS: ACETAMINOPHEN 325 MG TABLET (FP) PO PRN (15:23)
[2019-12-29 17:24] LABS: HEMATOCRIT 29.1 % (32.4-45.2); HEMOGLOBIN 8.9 GM/dL (10.7-15.3); MCH 24.9 pg (25.7-33.7); MCHC 30.6 g/dl (32.0-36.0); MEAN CELL VOLUME 81.6 fl (80-96); MEAN PLT VOLUME 8.3 fl (7.5-11.1); PLATELET COUNT 414 K/MM3 (134-434); RBC 3.57 M/mm3 (3.60-5.2); RDW 21.3 % (11.6-15.6); WHITE BLOOD COUNT 8.9 K/mm3 (4.0-10.0)
[2019-12-29 17:57] LABS: ALBUMIN 2.6 g/dl (3.4-5.0); BILIRUBIN,TOTAL 0.2 mg/dL (0.2-1); BLOOD UREA NITROGEN 8.9 mg/dL (7-18); CALCIUM 8.4 mg/dL (8.5-10.1); CREATININE 0.7 mg/dL (0.55-1.3); POTASSIUM 4.6 mmol/L (3.5-5.1); TOT PROT 6.7 g/dl (6.4-8.2)
[2019-12-29] MEDS ORDERED: GLYCERIN 1 RECTAL SUPPOSITORY, ADULT RC ONE (18:00)
[2019-12-29] MEDS ORDERED: BISACODYL 10 MG SUPP.RECT RC PRN (18:30)
[2019-12-29 20:33] VITALS: BMI 29.7
[2019-12-29] MEDS ORDERED: ACETAMINOPHEN 325 MG TABLET (FP) PO PRN (21:22)
[2019-12-29] MEDS ORDERED: ACETAMINOPHEN 1000 MG/100 ML VIAL (NON FORMULARY) IVPB ONE (22:00)
[2019-12-30] MEDS: ONDANSETRON 4 MG/2 ML VIAL IVPUSH PRN ×2 (01:33→13:24)
[2019-12-30] MEDS: NYSTATIN 500,000 UNITS/5 ML SUSPENSION PO SCH ×4 (03:20→18:41)
[2019-12-30] MEDS: INSULIN SLIDING SCALE (NOVOLOG) 1 VIAL SQ SCH ×3 (07:34→18:41)
[2019-12-30] MEDS: D5-1/2NS+20 MEQ KCL - 20 MEQ/1,000 ML INFUS.BAG IV SCH ×2 (08:15→10:10)
[2019-12-30 08:59] LABS: EOS % 3.7 % (0-4.5); HEMATOCRIT 31.7 % (32.4-45.2); HEMOGLOBIN 9.7 GM/dL (10.7-15.3); LYMPH % 12.9 % (8-40); MCH 25.3 pg (25.7-33.7); MCHC 30.7 g/dl (32.0-36.0); MEAN CELL VOLUME 82.4 fl (80-96); MEAN PLT VOLUME 8.7 fl (7.5-11.1); MONO % 4.7 % (3.8-10.2); NEUT % 77.7 % (42.8-82.8); PLATELET COUNT 377 K/MM3 (134-434); RBC 3.85 M/mm3 (3.60-5.2)
[2019-12-30 09:19] LABS: ALBUMIN 2.5 g/dl (3.4-5.0); BILIRUBIN,TOTAL 0.4 mg/dL (0.2-1); BLOOD UREA NITROGEN 6.7 mg/dL (7-18); CALCIUM 8.7 mg/dL (8.5-10.1); CREATININE 0.7 mg/dL (0.55-1.3); POTASSIUM 5.2 mmol/L (3.5-5.1); TOT PROT 6.9 g/dl (6.4-8.2)
--- NOTE | 2019-12-30 09:38 | PN ---
Progress Note, Physician Chief Complaint: Patient seen and examined at the bedside, diminutions of nausea and epigastric abdominal pain, constipation. History of Present Illness: This 74 yr old female with hx of rheumatoid arthritis and HTN admitted via ER with an acute bilateral pneumonia, an acutely severe dyspnea and tachypnea, acute productive cough, and an acute pain of the right lower anterior chest wall pain. During hospital stay patient had been complaining of pain localized to RUQ, abdominal ultrasound was done and revealed cholelithiasis ; at present, patient is c/o nausea, vomiting, and epigastric abdominal pain for past few days. - Current Medication List Current Medications: Active Medications Acetaminophen (Tylenol -) 650 mg PO Q6H PRN PRN Reason: MODERATE PAIN Enoxaparin Sodium (Lovenox -) 40 mg SQ DAILY [facility] Ceftriaxone Sodium 2 gm/ (Dextrose) 100 mls @ 100 mls/hr IVPB DAILY [facility]; Protocol Potassium Chloride/Dextrose/Sod Cl (D5-1/2ns+20 Meq Kcl -) 20 meq in 1,000 mls @ 60 mls/hr IV ASDIR [facility] Insulin Aspart (Novolog Vial Sliding Scale -) 1 vial SQ TIDAC [facility]; Protocol Last Admin: 12/30/19 07:34 Dose: Not Given Nystatin (Nystatin Oral Suspension -) 500,000 units PO Q6HPO [facility] Last Admin: 12/30/19 03:20 Dose: Not Given Ondansetron HCl (Zofran Injection) 4 mg IVPUSH Q8H PRN PRN Reason: NAUSEA Last Admin: 12/30/19 01:33 Dose: 4 mg Pantoprazole Sodium (Protonix Iv) 20 mg IVPUSH DAILY [facility] Last Admin: 12/29/19 10:12 Dose: 20 mg - Objective Vital Signs: Vital Signs Temperature 98.5 F 12/30/19 06:00 Pulse Rate 76 12/30/19 06:00 Respiratory Rate 20 12/30/19 06:00 Blood Pressure 131/61 12/30/19 06:00 O2 Sat by Pulse Oximetry (%) 98 12/29/19 21:00 Constitutional: Yes: Well Nourished, Calm, Mild Distress Eyes: Yes: Conjunctiva Clear, EOM Intact HENT: Yes: Atraumatic, Normocephalic Neck: Yes: Supple, Trachea Midline Cardiovascular: Yes: Regular Rate and Rhythm Respiratory: Yes: Regular, CTA Bilaterally, Cough, On Nasal O2, Rhonchi, SOB, SOB on Exertion Gastrointestinal: Yes: Normal Bowel Sounds, Soft, Other (constipation) ...Rectal Exam: Yes: Deferred Genitourinary: Yes: WNL Breast(s): Yes: WNL Musculoskeletal: Yes: WNL Extremities: Yes: WNL Edema: No Peripheral Pulses WNL: Yes Integumentary: Yes: WNL Neurological: Yes: WNL ...Motor Strength: WNL Psychiatric: Yes: WNL Labs: CBC, BMP 12/30/19 08:15 12/30/19 08:15 - ....Imaging Other: Report Reviewed (Lab data reviewed) Problem List - Problems (1) NSTEMI (non-ST elevated myocardial infarction) Code(s): I21.4 - NON-ST ELEVATION (NSTEMI) MYOCARDIAL INFARCTION (2) Shortness of breath Code(s): R06.02 - SHORTNESS OF BREATH (3) Anemia Code(s): D64.9 - ANEMIA, UNSPECIFIED Qualifiers: Other causes of anemia: chronic disease, other (4) Back pain Code(s): M54.9 - DORSALGIA, UNSPECIFIED Qualifiers: Back pain location: low back pain Back pain laterality: bilateral (5) Chronic pain Code(s): G89.29 - OTHER CHRONIC PAIN (6) HTN (hypertension) Code(s): I10 - ESSENTIAL (PRIMARY) HYPERTENSION Qualifiers: Hypertension type: essential hypertension Qualified Code(s): I10 - Essential (primary) hypertension (7) Acute sepsis Code(s): A41.9 - SEPSIS, UNSPECIFIED ORGANISM (8) Acute pneumonia Code(s): J18.9 - PNEUMONIA, UNSPECIFIED ORGANISM (9) Acute respiratory failure Code(s): J96.00 - ACUTE RESPIRATORY FAILURE, UNSP W HYPOXIA OR HYPERCAPNIA (10) Neutrophilic leukocytosis Code(s): D72.9 - DISORDER OF WHITE BLOOD CELLS, UNSPECIFIED (11) Chest pain Code(s): R07.9 - CHEST PAIN, UNSPECIFIED (12) Cholelithiasis Code(s): K80.20 - CALCULUS OF GALLBLADDER W/O CHOLECYSTITIS W/O OBSTRUCTION (13) Haemophilus infection Code(s): A49.2 - HEMOPHILUS INFLUENZAE INFECTION, UNSPECIFIED SITE (14) Bacteremia due to Gram-negative bacteria Code(s): R78.81 - BACTEREMIA (15) RUQ abdominal pain Code(s): R10.11 - RIGHT UPPER QUADRANT PAIN (16) History of immunocompromised state Code(s): Z86.2 - PRSNL HISTORY OF DIS OF THE BLD/BLD-FORM ORG/IMMUN MECHNSM (17) Influenza Code(s): J11.1 - FLU DUE TO UNIDENTIFIED INFLUENZA VIRUS W OTH RESP MANIFEST (18) Epigastric abdominal pain Code(s): R10.13 - EPIGASTRIC PAIN (19) Nausea & vomiting Code(s): R11.2 - NAUSEA WITH VOMITING, UNSPECIFIED (20) Constipation Code(s): K59.00 - CONSTIPATION, UNSPECIFIED Assessment/Plan Assessment/plan: acute bilateral pneumonia, acute Haemophilus Beta lactamase positive bacteremia, acute sepsis, acute dyspnea and tachypnea, acute productive cough, acute right anterior lower chest wall pain (RUQ, right lower post chest wall), acute nausea and vomiting, acute epigastric abdominal pain, acute constipation; Full liquid diet, IV fluids, IV Ceftriaxone as per ID, IV Zofran, IV protonix, oral nystatin susp, DVT prophylaxis, SCDS, physical therapy ,
[2019-12-30] MEDS ORDERED: DEXTROSE 5%-WATER 100 ML IVPB ONE (11:03)
[2019-12-30] MEDS: CEFTRIAXONE 2 GM in DEXTROSE 5%-WATER 100 ML IVPB SCH (11:10)
[2019-12-30] MEDS: POLYETHYLENE GLYCOL 3350 119 GM BTL PO SCH (11:11)
[2019-12-30] MEDS: ENOXAPARIN NA (PORCINE) 40 MG/0.4 ML DISP.SYRIN SQ SCH (11:11)
--- NOTE | 2019-12-30 11:17 | PN ---
Progress Note, Physician History of Present Illness: PULMONARY ALERT,FEELING BETTER,OOB-CHAIR,SOB IMPROVING - Current Medication List Current Medications: Active Medications Enoxaparin Sodium (Lovenox -) 40 mg SQ DAILY [facility] Last Admin: 12/30/19 11:11 Dose: 40 mg Ceftriaxone Sodium 2 gm/ (Dextrose) 100 mls @ 100 mls/hr IVPB DAILY [facility]; Protocol Last Admin: 12/30/19 11:10 Dose: 100 mls/hr Potassium Chloride/Dextrose/Sod Cl (D5-1/2ns+20 Meq Kcl -) 20 meq in 1,000 mls @ 60 mls/hr IV ASDIR [facility] Last Admin: 12/30/19 10:10 Dose: 60 mls/hr Insulin Aspart (Novolog Vial Sliding Scale -) 1 vial SQ TIDAC [facility]; Protocol Last Admin: 12/30/19 07:34 Dose: Not Given Nystatin (Nystatin Oral Suspension -) 500,000 units PO Q6HPO [facility] Last Admin: 12/30/19 03:20 Dose: Not Given Ondansetron HCl (Zofran Injection) 4 mg IVPUSH Q8H PRN PRN Reason: NAUSEA Last Admin: 12/30/19 01:33 Dose: 4 mg Pantoprazole Sodium (Protonix Iv) 20 mg IVPUSH DAILY [facility] Last Admin: 12/29/19 10:12 Dose: 20 mg Polyethylene Glycol (Miralax (For Daily Use) -) 17 gm PO DAILY [facility] Last Admin: 12/30/19 11:11 Dose: 17 gm - Objective Vital Signs: Vital Signs Temperature 98.5 F 12/30/19 06:00 Pulse Rate 76 12/30/19 06:00 Respiratory Rate 12/30/19 06:00 Blood Pressure 131/61 12/30/19 06:00 O2 Sat by Pulse Oximetry (%) 98 12/29/19 21:00 Constitutional: Yes: Well Nourished, Calm Eyes: Yes: WNL HENT: Yes: WNL Neck: Yes: WNL Cardiovascular: Yes: Regular Rate and Rhythm, S1, S2 Respiratory: Yes: Rhonchi (SCATTERED HERNAN RHONCHI) Gastrointestinal: Yes: Normal Bowel Sounds, Soft Extremities: Yes: WNL Edema: No Labs: CBC, BMP 12/30/19 08:15 12/30/19 08:15 Assessment/Plan Assessment/Plan Problem List - Problems (1) Influenza Code(s): J11.1 - FLU DUE TO UNIDENTIFIED INFLUENZA VIRUS W OTH RESP MANIFEST (2) Acute pneumonia Code(s): J18.9 - PNEUMONIA, UNSPECIFIED ORGANISM (3) Shortness of breath Code(s): R06.02 - SHORTNESS OF BREATH (4) Anemia Code(s): D64.9 - ANEMIA, UNSPECIFIED Qualifiers: Other causes of anemia: chronic disease, other (5) Back pain Code(s): M54.9 - DORSALGIA, UNSPECIFIED Qualifiers: Back pain location: low back pain Back pain laterality: bilateral (6) Chronic pain Code(s): G89.29 - OTHER CHRONIC PAIN (7) HTN (hypertension) Code(s): I10 - ESSENTIAL (PRIMARY) HYPERTENSION Qualifiers: Hypertension type: essential hypertension Qualified Code(s): I10 - Essential (primary) hypertension (8) Spinal stenosis Code(s): M48.00 - SPINAL STENOSIS, SITE UNSPECIFIED Qualifiers: Spinal region: lumbosacral Qualified Code(s): M48.07 - Spinal stenosis, lumbosacral region 9 BACTEREMIA Assessment/Plan ABX as per ID O2 VTE prophylaxis Will need repeat imaging as an outpatient to ensure resolution of infiltrates in this immunocompromised host inhaled bronchodilators f/u chest x-ray today DR MOTA
[2019-12-30] MEDS: PANTOPRAZOLE SODIUM 40 MG VIAL IVPUSH SCH (11:40)
--- NOTE | 2019-12-30 11:52 | PN ---
Progress Note (short form) - Note Progress Note: s: no chest pain, palps, dizziness, dyspnea. Current Medications Enoxaparin Sodium (Lovenox -) 40 mg SQ DAILY [facility] Last Admin: 12/30/19 11:11 Dose: 40 mg Ceftriaxone Sodium 2 gm/ (Dextrose) 100 mls @ 100 mls/hr IVPB DAILY [facility]; Protocol Last Admin: 12/30/19 11:10 Dose: 100 mls/hr Potassium Chloride/Dextrose/Sod Cl (D5-1/2ns+20 Meq Kcl -) 20 meq in 1,000 mls @ 60 mls/hr IV ASDIR [facility] Last Admin: 12/30/19 10:10 Dose: 60 mls/hr Insulin Aspart (Novolog Vial Sliding Scale -) 1 vial SQ TIDAC [facility]; Protocol Last Admin: 12/30/19 07:34 Dose: Not Given Nystatin (Nystatin Oral Suspension -) 500,000 units PO Q6HPO [facility] Last Admin: 12/30/19 11:42 Dose: 500,000 units Ondansetron HCl (Zofran Injection) 4 mg IVPUSH Q8H PRN PRN Reason: NAUSEA Last Admin: 12/30/19 01:33 Dose: 4 mg Pantoprazole Sodium (Protonix Iv) 20 mg IVPUSH DAILY [facility] Last Admin: 12/30/19 11:40 Dose: 20 mg Polyethylene Glycol (Miralax (For Daily Use) -) 17 gm PO DAILY [facility] Last Admin: 12/30/19 11:11 Dose: 17 gm Vital Signs Period Temp Pulse Resp BP Sys/Anand Pulse Ox Last 24 Hr 97.7 F-98.6 F 66-87 20-20 131-144/61-79 98 Constitutional: Yes: No Distress Eyes: Yes: Conjunctiva Clear, EOM Intact Cardiovascular: Yes: Regular Rate and Rhythm Respiratory: Yes: Rhonchi, Other (diffuse mild rhonchi with decreased basilar breath sounds, no active wheezing) Gastrointestinal: Yes: Soft, Abdomen, Obese Edema: No Neurological: Yes: Alert, Oriented no jaundice, diaphoresis not agitated Assessment/Plan EKG:sinus tach, no ischemic changes CT chest: shine pneumonic infiltrates, mild bronchiectatic changes in lower lobes , cannot exclude congestion or chronic ILD elevated trop: - EKG no ischemic changes - flat trend, indeterminate range, likely demand in setting of PNA, no signs acs - echo with nl lvef, no sig valve abnormalities - recommend nuclear stress when recovers, can be done as outpatient PNA, flu: - manage per primary, improving HTN: - cont home meds anemia: - manage per primary NSVT - nl EF here - replete lytes for K>4, Mg>2
--- NOTE | 2019-12-30 12:54 | PN ---
Progress Note (short form) - Note Progress Note: small bm now vomiting with back pain Vital Signs Period Temp Pulse Resp BP Sys/Anand Pulse Ox Last 24 Hr 97.7 F-98.6 F 66-87 20-20 131-144/61-79 98 cor-rrr lungs clear abd soft, no ruq pain, +midepigastric pain ext no edema CBC, BMP 12/30/19 08:15 12/30/19 08:15 Microbiology 12/24/19 13:50 Blood - Peripheral Venous Blood Culture - Final NO GROWTH AFTER 5 DAYS INCUBATION 12/24/19 13:57 Blood - Peripheral Venous Blood Culture - Final NO GROWTH AFTER 5 DAYS INCUBATION 12/21/19 23:24 Blood - Peripheral Venous Blood Culture - Preliminary Haemophilus Influenzae Iii 12/21/19 23:24 Blood - Peripheral Venous Blood Culture - Final Haemophilus Influenzae Iii 12/23/19 15:35 Urine - Urine Clean Catch Urine Culture - Final NO GROWTH OBTAINED 12/23/19 15:35 Urine - Urine Clean Catch Legionella Antigen - Final 12/23/19 15:35 Urine - Urine Clean Catch Streptococcus pneumoniae Antigen ( M - Final sonogram +gallstones a/p flank pain- GI f/u pending , check lipase constipation noted-small BM today pneumonia hemophilus bacteremia- betal lactamase positive- continue ceftriaxone day #9 check complements, check quantitative immunoglobins Problem List - Problems (1) Acute pneumonia Code(s): J18.9 - PNEUMONIA, UNSPECIFIED ORGANISM (2) Influenza Code(s): J11.1 - FLU DUE TO UNIDENTIFIED INFLUENZA VIRUS W OTH RESP MANIFEST (3) History of immunocompromised state Code(s): Z86.2 - PRSNL HISTORY OF DIS OF THE BLD/BLD-FORM ORG/IMMUN MECHNSM
[2019-12-30 13:33] LABS: TARGET CELLS 1+
[2019-12-30] MEDS ORDERED: HYDROmorphone HCl 2 MG/ML VIAL IVPB PRN (14:32)
--- NOTE | 2019-12-30 14:59 | CON.GI ---
Consult Consult Specialty:: Gastroenterology Reason for Consultation:: Abdominal pain - History of Present Illness Chief Complaint: Abdominal pain, nausea History of Present Illness: 74yo female h/o rheumatoid arthritis on remicade initially presenting with shortness of breath and chest pain asked to evaluate for abdominal pain and nausea/vomiting. Pt initially presenting with sob and chest pain treated empirically for flu and pneumonia and with evidence of gran negative bacteremia. States she developed abdominal pain mostly in epigastric region 2 days ago with associated nausea and vomiting. Attempted to eat this am however vomited small amount of greenish liquid per nurse. Pt also reports constipation, has not had regular bm in 4 days , passed small amount of brown stool this am after suppository. On my evaluation feeling better, mild nausea though states abdominal pain has improved. Later this afternoon informed by nurse that pt was given lunch with worsening epigastric pain with radiation to back. No prior EGD, reports colonoscopy within the past 1-2 years (report not currently available). 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: No: Alzheimer's, CVA, Dementia, Migraine, Multiple Sclerosis, Peripheral Neuropathy, Parkinson's, Seizure, Syncope, TIA, Vertigo, Other Cardio/Vascular: Yes: HTN Pulmonary: No: Asthma, Bronchitis, Cancer, COPD, O2 Dependent, Pneumonia, Previously Intubated, Pulmonary Embolus, Pulmonary Fibrosis, Sleep Apnea, Other Gastrointestinal: No: Ascites, Cancer, Constipation, Crohn's Disease, Diverticulitis, Diverticulosis, Esophageal Varices, Gastritis, GERD, GI Bleed, Hemorrhoids, Hiatal Hernia, Inflamatory Bowel Disease, Irritable Bowel Disease, Pancreatitis, Peptic Ulcer Disease, Ulcerative Colitis, Other Hepatobiliary: No: Cirrhosis, Cholelithiasis, Cholecystitis, Choledocholithiasis , Hepatitis A, Hepatitis B, Hepatitis C, Other Renal/: No: Renal Failure, Renal Inusuff, BPH, Cancer, Hematuria, Hemodialysis , Neurogenic Bladder, Renal Calculi, UTI, Other Infectious Disease: Yes: Other (GENITAL HSV) Psych: No: Addictions, Anxiety, Bipolar, Depression, Panic, Psychosis, Schizophrenia, Other Musculoskeletal: Yes: Chronic low back pain Rheumatology: Yes: Rheumatoid Arthritis ENT: No: Allergic Rhinitis, Sinusitis, Other Endocrine: No: Adan's Disease, [place]'s Disease, Diabetes Insipidus, Diabetes Mellitus, Hyperparathyroidism, Hyperthyroidism, Hypothyroidism, Osteopenia, SIADH, Other Dermatology: No: Basal Cell, Cellulitis, Eczema, Melanoma, Psoriasis, Squamous Cell, Other - Past Surgical History Past Surgical History: No: None, AAA Repair, AICD, Amputation, Appendectomy, Arthrosocopy, AV Fistula/Graft, Bariatric Surgery, Breast Biopsy, Bypass, CABG, Carotid Endarterectomy, Cataract Removal, Cholecystectomy, Colectomy, Colonoscopy, Colostomy, Craniotomy, , Cystectomy, Hernia Repair, Hysterectomy, Ileal Conduit, Ileosotomy, Joint Replacement, Kidney Transplant, Laminectomy, Liver Transplant, Mastectomy, Nephrectomy, Oopherectomy, Orchiectomy, Permanent Pacemaker, Prostatectomy, Splenectomy, Stent, Thoracotomy , TURP, Tonsillectomy, Tubal Ligation, Upper Endoscopy, Valve Replacement, Vasectomy, Vein Stripping/Ligation - Alcohol/Substance Use Hx Alcohol Use: No - Smoking History Smoking history: Never smoked Have you smoked in the past 12 months: No Home Medications - Allergies Allergies/Adverse Reactions: Allergies Allergy/AdvReac Type Severity Reaction Status Date / Time No Known Drug Allergies Allergy Verified 12/21/19 22:06 - Home Medications Home Medications: Ambulatory Orders Etanercept [Enbrel Sureclick] 50 mg SQ ASDIR 12/22/19 Folic Acid 1 mg PO DAILY 12/22/19 Ibandronate Sodium [Boniva] 150 mg PO ASDIR 12/22/19 Methotrexate Sodium [Methotrexate] 2.5 mg PO ASDIR 12/22/19 Triamcinolone 0.5% Cream [Aristocort 0.5% Cream -] 1 applic TD BID 12/22/19 Physical Exam-GI Vital Signs: Vital Signs Temperature 98.6 F 12/30/19 11:48 Pulse Rate 83 12/30/19 11:48 Respiratory Rate 20 12/30/19 11:48 Blood Pressure 143/66 12/30/19 11:48 O2 Sat by Pulse Oximetry (%) 98 12/29/19 21:00 Constitutional: Yes: No Distress, Calm Cardiovascular: Yes: WNL, Regular Rate and Rhythm Respiratory: Yes: WNL, Regular, CTA Bilaterally ...Palpate: Yes: Other (Abd soft, mildly tender on palpation in epigastrium on palpation, nondistended) Edema: No Labs: CBC, BMP 12/30/19 08:15 12/30/19 08:15 Imaging - Results Ultrasound: Report Reviewed Problem List - Problems (1) Epigastric abdominal pain Assessment/Plan: 74yo female h/o rheumatoid arthritis on remicade initially presenting with shortness of breath and chest pain treated for pneumonia and hemophilus bacteremia asked to evaluate for abdominal pain and nausea/vomiting. US revealing gallstones. Some improvement this am however with worsening after meals and radiation to back, need to exclude pancreatitis vs cholecystitis vs constipation or obstructive process though less likely. PUD also possible. -Keep NPO for now, IVF -Recommend CT abd/pelvis to further evaluate -Check lipase -Protonix 40mg daily -Further recommendations pending above CT results Code(s): R10.13 - EPIGASTRIC PAIN
[2019-12-31] MEDS: NYSTATIN 500,000 UNITS/5 ML SUSPENSION PO SCH ×4 (00:05→17:55)
[2019-12-31] MEDS: INSULIN SLIDING SCALE (NOVOLOG) 1 VIAL SQ SCH ×3 (06:41→17:02)
[2019-12-31] MEDS: D5-1/2NS+20 MEQ KCL - 20 MEQ/1,000 ML INFUS.BAG IV SCH ×2 (07:44→09:35)
[2019-12-31 08:06] LABS: IGA IMMUNOGLOBULIN 345 mg/dL (64-422); IGG QN IMMUNOGLOBULIN 1577 mg/dL (700-1600); IGM QN SERUM 67 mg/dL (26-217)
[2019-12-31 08:13] LABS: BASO % 0.7 % (0-2.0); EOS % 3.4 % (0-4.5); HEMATOCRIT 28.9 % (32.4-45.2); LYMPH % 13.4 % (8-40); MCH 25.2 pg (25.7-33.7); MEAN CELL VOLUME 81.3 fl (80-96); MONO % 5.5 % (3.8-10.2); PLATELET COUNT 415 K/MM3 (134-434); RBC 3.56 M/mm3 (3.60-5.2); RDW 21.9 % (11.6-15.6); WHITE BLOOD COUNT 9.8 K/mm3 (4.0-10.0)
[2019-12-31 08:34] LABS: ALBUMIN 2.4 g/dl (3.4-5.0); BILIRUBIN,TOTAL 0.2 mg/dL (0.2-1); BLOOD UREA NITROGEN 8.7 mg/dL (7-18); CALCIUM 8.1 mg/dL (8.5-10.1); CREATININE 0.7 mg/dL (0.55-1.3); POTASSIUM 4.5 mmol/L (3.5-5.1); TOT PROT 6.2 g/dl (6.4-8.2)
[2019-12-31] MEDS ORDERED: DEXTROSE 5%-WATER 100 ML IVPB ONE (09:05)
--- NOTE | 2019-12-31 10:49 | PN ---
Progress Note (short form) - Note Progress Note: Breathing is improving. Abdominal symptoms persistent but better with Dilaudid. No CP or SOB. No acute events overnight. Intake & Output 12/28/19 12/29/19 12/30/19 12/31/19 23:59 23:59 23:59 23:59 Intake Total 2120 995 925 120 Output Total 100 Balance 2120 895 925 120 Weight 152 lb 1.903 oz Last Vital Signs Temp Pulse Resp BP Pulse Ox 98.3 F 87 20 151/59 L 98 12/31/19 06:00 12/31/19 06:00 12/31/19 06:00 12/31/19 06:00 12/30/19 21:00 Active Medications Enoxaparin Sodium (Lovenox -) 40 mg SQ DAILY [facility] Last Admin: 12/30/19 11:11 Dose: 40 mg Hydromorphone HCl (Dilaudid Vial -) 0.2 mg IVPB Q6H PRN PRN Reason: PAIN LEVEL 6-10 Last Admin: 12/30/19 22:34 Dose: 0.2 mg Ceftriaxone Sodium 2 gm/ (Dextrose) 100 mls @ 100 mls/hr IVPB DAILY [facility]; Protocol Last Admin: 12/30/19 11:10 Dose: 100 mls/hr Potassium Chloride/Dextrose/Sod Cl (D5-1/2ns+20 Meq Kcl -) 20 meq in 1,000 mls @ 60 mls/hr IV ASDIR [facility] Last Admin: 12/31/19 07:44 Dose: 60 mls/hr Insulin Aspart (Novolog Vial Sliding Scale -) 1 vial SQ TIDAC [facility]; Protocol Last Admin: 12/31/19 06:41 Dose: Not Given Nystatin (Nystatin Oral Suspension -) 500,000 units PO Q6HPO [facility] Last Admin: 12/31/19 05:43 Dose: Not Given Ondansetron HCl (Zofran Injection) 4 mg IVPUSH Q8H PRN PRN Reason: NAUSEA Last Admin: 12/30/19 13:24 Dose: 4 mg Pantoprazole Sodium (Protonix Iv) 40 mg IVPUSH DAILY [facility] Polyethylene Glycol (Miralax (For Daily Use) -) 17 gm PO DAILY [facility] Last Admin: 12/30/19 11:11 Dose: 17 gm Constitutional: Yes: NAD Eyes: Yes: WNL HENT: Yes: WNL Neck: Yes: WNL Cardiovascular: Yes: Regular Rate and Rhythm, S1, S2 Respiratory: Yes: Few scattered rhonchi Gastrointestinal: Yes: Normal Bowel Sounds, Soft Extremities: Yes: WNL Edema: No Labs: Laboratory Results - last 24 hr 12/29/19 12/30/19 12/30/19 15:20 08:15 08:15 WBC RBC Hgb Hct MCV MCH MCHC RDW Plt Count MPV Absolute Neuts (auto) Neutrophils % Lymphocytes % Monocytes % Eosinophils % Basophils % Nucleated RBC % Hypochromia 1+ Target Cells 1+ Sodium 139 Potassium 5.2 H Chloride 107 Carbon Dioxide 29 Anion Gap 3 L BUN 6.7 L Creatinine 0.7 Est GFR (CKD-EPI)AfAm 97.54 Est GFR (CKD-EPI)NonAf 84.16 POC Glucometer Random Glucose 91 Calcium 8.7 Total Bilirubin 0.4 AST 22 ALT 16 Alkaline Phosphatase 91 Total Protein 6.9 Albumin 2.5 L Lipase 37 L IgG 1577 IgA 345 IgM 67 12/30/19 12/30/19 12/31/19 12:04 18:38 06:34 WBC RBC Hgb Hct MCV MCH MCHC RDW Plt Count MPV Absolute Neuts (auto) Neutrophils % Lymphocytes % Monocytes % Eosinophils % Basophils % Nucleated RBC % Hypochromia Target Cells Sodium Potassium Chloride Carbon Dioxide Anion Gap BUN Creatinine Est GFR (CKD-EPI)AfAm Est GFR (CKD-EPI)NonAf POC Glucometer 101 103 89 Random Glucose Calcium Total Bilirubin AST ALT Alkaline Phosphatase Total Protein Albumin Lipase IgG IgA IgM 12/31/19 12/31/19 06:50 06:50 WBC 9.8 RBC 3.56 L Hgb 9.0 L Hct 28.9 L MCV 81.3 MCH 25.2 L MCHC 31.0 L RDW 21.9 H Plt Count 415 MPV 8.0 Absolute Neuts (auto) 7.6 Neutrophils % 77.0 Lymphocytes % 13.4 Monocytes % 5.5 Eosinophils % 3.4 Basophils % 0.7 Nucleated RBC % 0 Hypochromia Target Cells Sodium 140 Potassium 4.5 Chloride 106 Carbon Dioxide 28 Anion Gap 6 L BUN 8.7 Creatinine 0.7 Est GFR (CKD-EPI)AfAm 97.54 Est GFR (CKD-EPI)NonAf 84.16 POC Glucometer Random Glucose 82 Calcium 8.1 L Total Bilirubin 0.2 AST 16 ALT 15 Alkaline Phosphatase 82 Total Protein 6.2 L Albumin 2.4 L Lipase IgG IgA IgM Problem List - Problems (1) Influenza Code(s): J11.1 - FLU DUE TO UNIDENTIFIED INFLUENZA VIRUS W OTH RESP MANIFEST (2) Acute pneumonia Code(s): J18.9 - PNEUMONIA, UNSPECIFIED ORGANISM (3) Shortness of breath Code(s): R06.02 - SHORTNESS OF BREATH (4) Anemia Code(s): D64.9 - ANEMIA, UNSPECIFIED Qualifiers: Other causes of anemia: chronic disease, other (5) Back pain Code(s): M54.9 - DORSALGIA, UNSPECIFIED Qualifiers: Back pain location: low back pain Back pain laterality: bilateral (6) Chronic pain Code(s): G89.29 - OTHER CHRONIC PAIN (7) HTN (hypertension) Code(s): I10 - ESSENTIAL (PRIMARY) HYPERTENSION Qualifiers: Hypertension type: essential hypertension Qualified Code(s): I10 - Essential (primary) hypertension (8) Spinal stenosis Code(s): M48.00 - SPINAL STENOSIS, SITE UNSPECIFIED Qualifiers: Spinal region: lumbosacral Qualified Code(s): M48.07 - Spinal stenosis, lumbosacral region (9) Bacteremia Assessment/Plan GI workup ongoing Tamiflu completed ABX as per ID O2 VTE prophylaxis Will need repeat imaging as an outpatient to ensure resolution of infiltrates in this immunocompromised host BD TX Dr Hewitt Problem List - Problems (1) Influenza Code(s): J11.1 - FLU DUE TO UNIDENTIFIED INFLUENZA VIRUS W OTH RESP MANIFEST (2) Acute pneumonia Code(s): J18.9 - PNEUMONIA, UNSPECIFIED ORGANISM (3) Shortness of breath Code(s): R06.02 - SHORTNESS OF BREATH (4) Anemia Code(s): D64.9 - ANEMIA, UNSPECIFIED Qualifiers: Other causes of anemia: chronic disease, other (5) Back pain Code(s): M54.9 - DORSALGIA, UNSPECIFIED Qualifiers: Back pain location: low back pain Back pain laterality: bilateral (6) Chronic pain Code(s): G89.29 - OTHER CHRONIC PAIN (7) HTN (hypertension) Code(s): I10 - ESSENTIAL (PRIMARY) HYPERTENSION Qualifiers: Hypertension type: essential hypertension Qualified Code(s): I10 - Essential (primary) hypertension (8) Spinal stenosis Code(s): M48.00 - SPINAL STENOSIS, SITE UNSPECIFIED Qualifiers: Spinal region: lumbosacral Qualified Code(s): M48.07 - Spinal stenosis, lumbosacral region
[2019-12-31] MEDS: ENOXAPARIN NA (PORCINE) 40 MG/0.4 ML DISP.SYRIN SQ SCH (10:59)
[2019-12-31] MEDS: PANTOPRAZOLE SODIUM 40 MG VIAL IVPUSH SCH (10:59)
[2019-12-31] MEDS: CEFTRIAXONE 2 GM in DEXTROSE 5%-WATER 100 ML IVPB SCH (10:59)
[2019-12-31] MEDS: POLYETHYLENE GLYCOL 3350 119 GM BTL PO SCH (11:01)
--- NOTE | 2019-12-31 11:03 | PN ---
Progress Note, Physician Chief Complaint: Patient seen and examined at the bedside, no acute events from last night except for deep pain of posterior lower chest wall. History of Present Illness: This 74 yr old female with hx of rheumatoid arthritis and HTN admitted via ER with an acutely severe dyspnea and tachypnea, acute bilateral pneumonia, and an acute pain of right lower anterior chest wall. - Current Medication List Current Medications: Active Medications Enoxaparin Sodium (Lovenox -) 40 mg SQ DAILY [facility] Last Admin: 12/30/19 11:11 Dose: 40 mg Hydromorphone HCl (Dilaudid Vial -) 0.2 mg IVPB Q6H PRN PRN Reason: PAIN LEVEL 6-10 Last Admin: 12/30/19 22:34 Dose: 0.2 mg Ceftriaxone Sodium 2 gm/ (Dextrose) 100 mls @ 100 mls/hr IVPB DAILY [facility]; Protocol Last Admin: 12/30/19 11:10 Dose: 100 mls/hr Potassium Chloride/Dextrose/Sod Cl (D5-1/2ns+20 Meq Kcl -) 20 meq in 1,000 mls @ 60 mls/hr IV ASDIR [facility] Last Admin: 12/31/19 07:44 Dose: 60 mls/hr Insulin Aspart (Novolog Vial Sliding Scale -) 1 vial SQ TIDAC [facility]; Protocol Last Admin: 12/31/19 06:41 Dose: Not Given Nystatin (Nystatin Oral Suspension -) 500,000 units PO Q6HPO [facility] Last Admin: 12/31/19 05:43 Dose: Not Given Ondansetron HCl (Zofran Injection) 4 mg IVPUSH Q8H PRN PRN Reason: NAUSEA Last Admin: 12/30/19 13:24 Dose: 4 mg Pantoprazole Sodium (Protonix Iv) 40 mg IVPUSH DAILY [facility] Polyethylene Glycol (Miralax (For Daily Use) -) 17 gm PO DAILY [facility] Last Admin: 12/30/19 11:11 Dose: 17 gm - Objective Vital Signs: Vital Signs Temperature 98.3 F 12/31/19 06:00 Pulse Rate 87 12/31/19 06:00 Respiratory Rate 20 12/31/19 06:00 Blood Pressure 151/59 L 12/31/19 06:00 O2 Sat by Pulse Oximetry (%) 98 12/30/19 21:00 Constitutional: Yes: Well Nourished, Calm, Mild Distress (Pain of right lower posterior chest wall) Eyes: Yes: Conjunctiva Clear, EOM Intact HENT: Yes: Atraumatic, Normocephalic Neck: Yes: Supple, Trachea Midline Cardiovascular: Yes: Regular Rate and Rhythm Respiratory: Yes: Regular, CTA Bilaterally, Cough, On Nasal O2, Rhonchi, SOB, SOB on Exertion Gastrointestinal: Yes: Normal Bowel Sounds, Soft, Hernia (hiatal) ...Rectal Exam: Yes: Deferred Genitourinary: Yes: WNL Breast(s): Yes: WNL Musculoskeletal: Yes: WNL Extremities: Yes: WNL Edema: No Peripheral Pulses WNL: Yes Peripheral Pulses: Left Radial: 2+, Right Radial: 2+ Integumentary: Yes: WNL Neurological: Yes: WNL ...Motor Strength: WNL Psychiatric: Yes: WNL Labs: CBC, BMP 12/31/19 06:50 12/31/19 06:50 - ....Imaging Other: Report Reviewed (Lab data reviewed) Problem List - Problems (1) NSTEMI (non-ST elevated myocardial infarction) Code(s): I21.4 - NON-ST ELEVATION (NSTEMI) MYOCARDIAL INFARCTION (2) Shortness of breath Code(s): R06.02 - SHORTNESS OF BREATH (3) Anemia Code(s): D64.9 - ANEMIA, UNSPECIFIED Qualifiers: Other causes of anemia: chronic disease, other (4) Back pain Code(s): M54.9 - DORSALGIA, UNSPECIFIED Qualifiers: Back pain location: low back pain Back pain laterality: bilateral (5) Chronic pain Code(s): G89.29 - OTHER CHRONIC PAIN (6) HTN (hypertension) Code(s): I10 - ESSENTIAL (PRIMARY) HYPERTENSION Qualifiers: Hypertension type: essential hypertension Qualified Code(s): I10 - Essential (primary) hypertension (7) Acute sepsis Code(s): A41.9 - SEPSIS, UNSPECIFIED ORGANISM (8) Acute pneumonia Code(s): J18.9 - PNEUMONIA, UNSPECIFIED ORGANISM (9) Acute respiratory failure Code(s): J96.00 - ACUTE RESPIRATORY FAILURE, UNSP W HYPOXIA OR HYPERCAPNIA (10) Neutrophilic leukocytosis Code(s): D72.9 - DISORDER OF WHITE BLOOD CELLS, UNSPECIFIED (11) Chest pain Code(s): R07.9 - CHEST PAIN, UNSPECIFIED (12) Cholelithiasis Code(s): K80.20 - CALCULUS OF GALLBLADDER W/O CHOLECYSTITIS W/O OBSTRUCTION (13) Haemophilus infection Code(s): A49.2 - HEMOPHILUS INFLUENZAE INFECTION, UNSPECIFIED SITE (14) Bacteremia due to Gram-negative bacteria Code(s): R78.81 - BACTEREMIA (15) RUQ abdominal pain Code(s): R10.11 - RIGHT UPPER QUADRANT PAIN (16) History of immunocompromised state Code(s): Z86.2 - PRSNL HISTORY OF DIS OF THE BLD/BLD-FORM ORG/IMMUN MECHNSM (17) Influenza Code(s): J11.1 - FLU DUE TO UNIDENTIFIED INFLUENZA VIRUS W OTH RESP MANIFEST (18) Epigastric abdominal pain Code(s): R10.13 - EPIGASTRIC PAIN (19) Nausea & vomiting Code(s): R11.2 - NAUSEA WITH VOMITING, UNSPECIFIED (20) Constipation Code(s): K59.00 - CONSTIPATION, UNSPECIFIED Assessment/Plan Assessment/plan: acute bilateral pneumonia, acute right middle lobe pneumonia, acute Haemophilus Beta lactamase positive bacteremia, acute sepsis, acute dyspnea and tachypnea, acute nausea and vomiting with acute epigastric abdominal pain after eating, acute pain of the right posterior lower chest wall , acute RUQ abdominal pain, moderate hiatal hernia, colonic diverticulosis; NPO , IV fluids, IV Ceftriaxone as per ID, fall precautions, DVT prophylaxis, SCDS, physical therapy, consult to General Surgeon pending.
--- NOTE | 2019-12-31 15:07 | PN ---
Progress Note (short form) - Note Progress Note: s: no chest pain, palps, dizziness, dyspnea. complains of abd pain, nausea Current Medications Enoxaparin Sodium (Lovenox -) 40 mg SQ DAILY [facility] Last Admin: 12/31/19 10:59 Dose: 40 mg Hydromorphone HCl (Dilaudid Vial -) 0.2 mg IVPB Q6H PRN PRN Reason: PAIN LEVEL 6-10 Last Admin: 12/30/19 22:34 Dose: 0.2 mg Ceftriaxone Sodium 2 gm/ (Dextrose) 100 mls @ 100 mls/hr IVPB DAILY [facility]; Protocol Last Admin: 12/31/19 10:59 Dose: 100 mls/hr Potassium Chloride/Dextrose/Sod Cl (D5-1/2ns+20 Meq Kcl -) 20 meq in 1,000 mls @ 60 mls/hr IV ASDIR [facility] Last Admin: 12/31/19 09:35 Dose: 60 mls/hr Insulin Aspart (Novolog Vial Sliding Scale -) 1 vial SQ TIDAC [facility]; Protocol Last Admin: 12/31/19 11:41 Dose: Not Given Nystatin (Nystatin Oral Suspension -) 500,000 units PO Q6HPO [facility] Last Admin: 12/31/19 12:59 Dose: 500,000 units Ondansetron HCl (Zofran Injection) 4 mg IVPUSH Q8H PRN PRN Reason: NAUSEA Last Admin: 12/30/19 13:24 Dose: 4 mg Pantoprazole Sodium (Protonix Iv) 40 mg IVPUSH DAILY [facility] Last Admin: 12/31/19 10:59 Dose: 40 mg Polyethylene Glycol (Miralax (For Daily Use) -) 17 gm PO DAILY [facility] Last Admin: 12/31/19 11:01 Dose: 17 gm Vital Signs Period Temp Pulse Resp BP Sys/Anand Pulse Ox Last 24 Hr 98.2 F-98.9 F 78-101 20-20 109-151/55-71 98 Constitutional: Yes: No Distress Eyes: Yes: Conjunctiva Clear, EOM Intact Cardiovascular: Yes: Regular Rate and Rhythm Respiratory: Yes: Rhonchi, Other (diffuse mild rhonchi with decreased basilar breath sounds, no active wheezing) Gastrointestinal: Yes: Soft, Abdomen, Obese Edema: No Neurological: Yes: Alert, Oriented no jaundice, diaphoresis not agitated Assessment/Plan EKG:sinus tach, no ischemic changes CT chest: shine pneumonic infiltrates, mild bronchiectatic changes in lower lobes , cannot exclude congestion or chronic ILD elevated trop - EKG no ischemic changes - flat trend, indeterminate range, likely demand in setting of PNA, no signs acs - echo with nl lvef, no sig valve abnormalities - recommend nuclear stress when recovers, can be done as outpatient PNA, flu: - manage per primary, improving HTN: - cont home meds anemia: - manage per primary NSVT - nl EF here - replete lytes for K>4, Mg>2 abd pain - workup per GI
--- NOTE | 2019-12-31 16:24 | CONSULT ---
Consult Consult Specialty:: General Surgery Referred by:: Adonay Ivory Reason for Consultation:: intermittent upper abdominal pain, N/V - History of Present Illness Chief Complaint: epigastric pain and midback pain, n/v with eating (not currently) History of Present Illness: 74yo F with HTN, RA on methotrexate and Enbrel, admitted 10 days ago with primarily respiratory issues found to have pneumonia and H. flu bacteremia , now improved on antibiotics. Over last couple days, when she eats, she has had associated N/V and epigastric pain, as well as mid back pain. On admission, she had pain around her right upper back. Because of that, she had US done previously, which showed gallstones but no evidence of cholecystitis. LFTs are normal, as well as lipase (yesterday). GI saw her yesterday, and abd/pelv CT was done as well. Surgery was asked to assess. She is seen sitting up in chair and examined in chair and in bed. I also spoke with her daughter over speakerphone at the same time, for additional history and assistance with Kazakh at times. They both report that the epigastric pain associated with N/V at meals has occurred on and off for about a year now. Patient says it is not every meal, though daughter suggested it was very frequent, that after eating, she feels like food is sticking in her chest, and that she feels better after throwing up. She also has chronic constipation, and has gone several days currently without BM, despite enemas. The CT showed some stool in colon, but not marked constipation, as well as a moderate hiatal hernia with dilation of distal esophagus (?proximal stomach) and retained material. Gallstones were noted, but not cholecystitis. She had a colonoscopy [address] Alvarez, but has never had upper endoscopy. She and her daughter also admit to intermittent symptoms of indigestion - sour taste in throat, discomfort - but she does not take anything for this. Her daughter also reported that patient has a chronic cough. She has never smoked. She has been NPO for a couple of days, and states her throat feels dry because of it. She intermittently expectorates some clear/light yellowish sputum. She reports no N/V if she does not eat, but she has a little bit of pain in epigastric area and some in her right flank area. She had a "tumor" removed from inside her abdomen years ago, which she states was not cancer. - History Source History Provided By: Patient, Family Member (daughter over phone), Medical Record Limitations to Obtaining History: Language Barrier (pt speaks Kazakh and Kenyan) - Past Medical History OPERATIONS MANAGER STATION: Yes: Migraine Cardio/Vascular: Yes: HTN (pt states she does take med at home, does not know name) Pulmonary: Yes: Pneumonia. No: O2 Dependent Gastrointestinal: Yes: Constipation (chronic per daughter) Reproductive: Yes: Postmenopausal Infectious Disease: Yes: Other (GENITAL HSV) Musculoskeletal: Yes: Chronic low back pain Rheumatology: Yes: Rheumatoid Arthritis - Past Surgical History Past Surgical History: Yes: Colonoscopy (2 yrs ago (Dr. Alvarez)), . No : Upper Endoscopy (never) Additional Surgical History: "tumor" (not cancer) removed from abdomen many years ago - Alcohol/Substance Use Hx Alcohol Use: No History of Substance Use: reports: None - Smoking History Smoking history: Never smoked Have you smoked in the past 12 months: No - Social History ADL: Independent Home Medications - Allergies Allergies/Adverse Reactions: Allergies Allergy/AdvReac Type Severity Reaction Status Date / Time No Known Drug Allergies Allergy Verified 12/21/19 22:06 - Home Medications Home Medications: Ambulatory Orders Etanercept [Enbrel Sureclick] 50 mg SQ ASDIR 12/22/19 Folic Acid 1 mg PO DAILY 12/22/19 Ibandronate Sodium [Boniva] 150 mg PO ASDIR 12/22/19 Methotrexate Sodium [Methotrexate] 2.5 mg PO ASDIR 12/22/19 Triamcinolone 0.5% Cream [Aristocort 0.5% Cream -] 1 applic TD BID 12/22/19 Family Medical History Family Hx Diabetes: Mother Other Family History: maternal aunt with stomach cancer Review of Systems - Review of Systems Constitutional: reports: Loss of Appetite (secondary to pain/n/v when she eats, did not eat for 4 days prior to admission). denies: Chills, Fever Eyes: reports: Other (reading glasses). denies: Recent Change in Vision HENT: denies: Difficult Swallowing, Throat Pain ((feels dry now, uncomfortable)) Neck: denies: Swollen Glands, Tenderness Cardiovascular: denies: Chest Pain, Palpitations Respiratory: reports: Cough (chronic (per daughter)). denies: SOB (not currently (did have on admission)) Gastrointestinal: reports: Abdominal Pain (intermittent, with hpi, only after eating), Constipation, Indigestion (sometimes - does not take anything for it), Nausea (with hpi), Vomiting (with hpi, not currently). denies: Diarrhea Genitourinary: denies: Burning, Dysuria Musculoskeletal: reports: Back Pain. denies: Extremity Pain, Joint Pain (denies ) Integumentary: denies: Change in Color, Rash Neurological: denies: Dizziness, Headache (had one over weekend, gets migraines sometimes), Unsteady Gait Physical Exam Vital Signs: Vital Signs Temperature 98.4 F 12/31/19 14:00 Pulse Rate 77 12/31/19 14:00 Respiratory Rate 20 12/31/19 14:00 Blood Pressure 124/60 12/31/19 14:00 O2 Sat by Pulse Oximetry (%) 98 12/31/19 09:00 Constitutional: Yes: No Distress, Calm, Obese Eyes: Yes: Conjunctiva Clear, EOM Intact HENT: Yes: Atraumatic, Normocephalic Neck: Yes: Supple, Trachea Midline Cardiovascular: Yes: Regular Rate and Rhythm Respiratory: Yes: Regular, CTA Bilaterally, On Nasal O2, Other (gets 250-300ml on IS with fair effort) Gastrointestinal: Yes: Soft, Abdomen, Obese, Hernia (umbilical with fat content palpable deeply, not fully reducible, minimally tender with deep palpation only) , Tenderness, Epigastrium (mild, no yomaira/guard), Other (well-healed Pfannenstiel & lower midline scars and one just above Pfannenstiel toward right). No: Tenderness (no quadrant tenderness) ...Rectal Exam: Yes: Deferred Renal/: No: CVA Tenderness - Left, CVA Tenderness - Right Musculoskeletal: Yes: Other (tender over lower right lateral ribs and upper right hip areas just posterior to axillary line). No: Back Pain (no direct tenderness), Joint Stiffness, Joint Swelling Extremities: No: Cool, Cyanosis Edema: No Peripheral Pulses WNL: Yes Integumentary: Yes: Rash (small area in pannicular fold over pelvis with moist erythematous skin - likely fungal rash). No: Jaundice Neurological: Yes: Alert, Oriented. No: Unsteady Gait Psychiatric: Yes: Alert, Oriented Labs: CBC, BMP 12/31/19 06:50 12/31/19 06:50 CMP Sodium 140 mmol/L (136-145) 12/31/19 06:50 Potassium 4.5 mmol/L (3.5-5.1) 12/31/19 06:50 Chloride 106 mmol/L (98-107) 12/31/19 06:50 Carbon Dioxide 28 mmol/L (21-32) 12/31/19 06:50 Anion Gap 6 MMOL/L (8-16) L 12/31/19 06:50 BUN 8.7 mg/dL (7-18) 12/31/19 06:50 Creatinine 0.7 mg/dL (0.55-1.3) 12/31/19 06:50 Est GFR (CKD-EPI)AfAm 97.54 12/31/19 06:50 Est GFR (CKD-EPI)NonAf 84.16 12/31/19 06:50 POC Glucometer 91 UNITS (80-120) 12/31/19 11:39 Random Glucose 82 mg/dL (74-106) 12/31/19 06:50 Hemoglobin A1c % 5.4 % (4.2-6.3) 12/23/19 06:58 Calcium 8.1 mg/dL (8.5-10.1) L 12/31/19 06:50 Phosphorus 2.9 mg/dL (2.5-4.9) 12/22/19 00:15 Magnesium 2.0 mg/dL (1.8-2.4) 12/27/19 05:25 Total Bilirubin 0.2 mg/dL (0.2-1) 12/31/19 06:50 AST 16 U/L (15-37) 12/31/19 06:50 ALT 15 U/L (13-61) 12/31/19 06:50 Alkaline Phosphatase 82 U/L (45-117) 12/31/19 06:50 Creatine Kinase 87 U/L (26-192) 12/22/19 00:15 Troponin I 0.45 ng/ml (0.00-0.05) H 12/22/19 12:05 B-Natriuretic Peptide 1918.4 pg/ml (5-450) H 12/22/19 00:15 Total Protein 6.2 g/dl (6.4-8.2) L 12/31/19 06:50 Albumin 2.4 g/dl (3.4-5.0) L 12/31/19 06:50 Lipase 37 U/L (73-393) L 12/30/19 08:15 Vitamin B12 4845 pg/ml (193-986) H 12/22/19 04:45 Urine Test Results Urine Color Yellow 12/23/19 15:35 Urine Appearance Clear 12/23/19 15:35 Urine pH 6.5 (5.0-8.0) 12/23/19 15:35 Ur Specific [facility] 1.026 (1.010-1.035) 12/23/19 15:35 Urine Protein 1+ (NEGATIVE) H 12/23/19 15:35 Urine Glucose (UA) Negative (NEGATIVE) 12/23/19 15:35 Urine Ketones Negative (NEGATIVE) 12/23/19 15:35 Urine Blood Negative (NEGATIVE) 12/23/19 15:35 Urine Nitrite Negative (NEGATIVE) 12/23/19 15:35 Urine Bilirubin Negative (NEGATIVE) 12/23/19 15:35 Ur Leukocyte Esterase 1+ (NEGATIVE) H 12/23/19 15:35 Microbiology 12/24/19 13:50 Blood - Peripheral Venous Blood Culture - Final NO GROWTH AFTER 5 DAYS INCUBATION 12/24/19 13:57 Blood - Peripheral Venous Blood Culture - Final NO GROWTH AFTER 5 DAYS INCUBATION 12/21/19 23:24 Blood - Peripheral Venous Blood Culture - Preliminary Haemophilus Influenzae Iii 12/21/19 23:24 Blood - Peripheral Venous Blood Culture - Final Haemophilus Influenzae Iii 12/23/19 15:35 Urine - Urine Clean Catch Urine Culture - Final NO GROWTH OBTAINED 12/23/19 15:35 Urine - Urine Clean Catch Legionella Antigen - Final 12/23/19 15:35 Urine - Urine Clean Catch Streptococcus pneumoniae Antigen ( M - Final Imaging - Results Cat Scan: Report Reviewed, Image Reviewed (+ gallstones, no signs cholecystitis , no biliary dilation; moderate hiatal hernia with retained contents in distal esophagus/proximal stomach just above diaphragm; + stool in colon but not excessive, no obstruction, no free air or fluid, no inflammatory changes, no pancreatitis) Ultrasound: Report Reviewed, Image Reviewed (+ gallstones, no signs of cholecystitis, normal CBD) Problem List - Problems (1) Hiatal hernia with gastroesophageal reflux disease without esophagitis Assessment/Plan: most likely source of intermittent prandial/postprandial pain and N/V also increases likelihood of GERD - pt does report intermittent symptoms but does not treat at home never had upper endoscopy retained food/contents in distal esophagus/proximal stomach pouch above diaphragm on CT will defer to GI for further evaluation and management of HH if surgical intervention is indicated/desired for this, would need to refer to upper GI surgeon or thoracic surgeon, as I do not perform these procedures respiratory and medical status would need to be optimized and infections resolved prior to elective intervention Thank you for the opportunity to participate in the care of this patient. will discuss with primary team and GI also recommend nystatin powder for pannicular fold rash - keep clean and dry Code(s): K44.9 - DIAPHRAGMATIC HERNIA WITHOUT OBSTRUCTION OR GANGRENE; K21.9 - GASTRO-ESOPHAGEAL REFLUX DISEASE WITHOUT ESOPHAGITIS (2) Epigastric abdominal pain Assessment/Plan: mild currently, usually only significant with eating, N/V Code(s): R10.13 - EPIGASTRIC PAIN (3) Nausea & vomiting Assessment/Plan: "it only happens when I eat" Code(s): R11.2 - NAUSEA WITH VOMITING, UNSPECIFIED Qualifiers: Vomiting type: bilious vomiting Qualified Code(s): R11.14 - Bilious vomiting (4) Calculus of gallbladder without cholangitis or cholecystitis Assessment/Plan: gallstones present but unlikely source of intermittent N/V/pain associated with all meals no signs of cholecystitis no intervention indicated at this time Code(s): K80.20 - CALCULUS OF GALLBLADDER W/O CHOLECYSTITIS W/O OBSTRUCTION (5) Rheumatoid arthritis Assessment/Plan: last weekly dose of immunomodulator about 2 weeks ago (before coming to hospital ), usually every Code(s): M06.9 - RHEUMATOID ARTHRITIS, UNSPECIFIED Qualifiers: Rheumatoid arthritis location: unspecified site Rheumatoid factor presence : unspecified presence Qualified Code(s): M06.9 - Rheumatoid arthritis, unspecified (6) Immunocompromised state due to drug therapy Code(s): Z79.899 - OTHER ASSISTED (CURRENT) DRUG THERAPY (7) Immunocompromised state Code(s): D89.9 - DISORDER INVOLVING THE IMMUNE MECHANISM, UNSPECIFIED (8) HTN (hypertension) Assessment/Plan: pt states she takes medication for pressure at home but does not remember the name Code(s): I10 - ESSENTIAL (PRIMARY) HYPERTENSION Qualifiers: Hypertension type: essential hypertension Qualified Code(s): I10 - Essential (primary) hypertension (9) Pneumonia due to hemophilus influenzae Qualifiers: Laterality: bilateral Lung location: unspecified part of lung Qualified Code(s): J14 - Pneumonia due to Hemophilus influenzae (10) Bacteremia due to other bacteria Assessment/Plan: ID following on antibiotics Code(s): R78.81 - BACTEREMIA; B96.89 - OTH BACTERIAL AGENTS THE CAUSE OF DISEASES CLASSD [id number]
[2019-12-31] MEDS ORDERED: ACETAMINOPHEN 1000 MG/100 ML VIAL (NON FORMULARY) IVPB PRN (18:09)
[2020-01-01] MEDS: NYSTATIN 500,000 UNITS/5 ML SUSPENSION PO SCH ×4 (00:55→17:17)
[2020-01-01] MEDS: D5-1/2NS+20 MEQ KCL - 20 MEQ/1,000 ML INFUS.BAG IV SCH ×2 (01:02→21:53)
[2020-01-01] MEDS: INSULIN SLIDING SCALE (NOVOLOG) 1 VIAL SQ SCH ×3 (06:03→16:32)
--- NOTE | 2020-01-01 06:27 | PN ---
Progress Note, Physician Chief Complaint: Patient seen and examined at the bedside, no acute events from last night, mild pain of RUQ of abdomen. History of Present Illness: This 74 yr old w/f with hx of rheumatoid arthritis, and HTN admitted via ER with an acutely severe dyspnea and tachypnea, acute bilateral pneumonia, acute Haemophilus Beta lactamase positive bacteremia, acute sepsis, and acute right anterior and posterior lower chest pain. Ultrasound revealed cholelithiasis. CT scan of abdomen revealed right middle lobe consolidation, moderate hiatal hernia with development of mild to moderate fluid distention of the partially imaged lower thoracic esophagus, cholelithiasis, and colonic diverticulosis. - Current Medication List Current Medications: Active Medications Acetaminophen (Ofirmev Injection -) 500 mg IVPB Q6H PRN PRN Reason: PAIN LEVEL 4-6 Stop: 01/01/20 18:09 Enoxaparin Sodium (Lovenox -) 40 mg SQ DAILY [facility] Last Admin: 12/31/19 10:59 Dose: 40 mg Ceftriaxone Sodium 2 gm/ (Dextrose) 100 mls @ 100 mls/hr IVPB DAILY [facility]; Protocol Last Admin: 12/31/19 10:59 Dose: 100 mls/hr Potassium Chloride/Dextrose/Sod Cl (D5-1/2ns+20 Meq Kcl -) 20 meq in 1,000 mls @ 75 mls/hr IV ASDIR [facility] Last Admin: 01/01/20 01:02 Dose: 75 mls/hr Insulin Aspart (Novolog Vial Sliding Scale -) 1 vial SQ TIDAC [facility]; Protocol Last Admin: 01/01/20 06:03 Dose: Not Given Nystatin (Nystatin Oral Suspension -) 500,000 units PO Q6HPO [facility] Last Admin: 01/01/20 05:52 Dose: 500,000 units Ondansetron HCl (Zofran Injection) 4 mg IVPUSH Q8H PRN PRN Reason: NAUSEA Last Admin: 12/30/19 13:24 Dose: 4 mg Pantoprazole Sodium (Protonix Iv) 40 mg IVPUSH DAILY [facility] Last Admin: 12/31/19 10:59 Dose: 40 mg Polyethylene Glycol (Miralax (For Daily Use) -) 17 gm PO DAILY [facility] Last Admin: 12/31/19 11:01 Dose: 17 gm - Objective Vital Signs: Vital Signs Temperature 98.7 F 02/21/20 02:00 Pulse Rate 78 01/01/20 02:00 Respiratory Rate 20 01/01/20 02:00 Blood Pressure 121/88 01/01/20 02:00 O2 Sat by Pulse Oximetry (%) 98 12/31/19 21:00 Constitutional: Yes: Well Nourished, Calm, Mild Distress Eyes: Yes: Conjunctiva Clear, EOM Intact HENT: Yes: Atraumatic, Normocephalic Neck: Yes: Supple, Trachea Midline Cardiovascular: Yes: Regular Rate and Rhythm Respiratory: Yes: Regular, CTA Bilaterally Gastrointestinal: Yes: Normal Bowel Sounds, Soft ...Rectal Exam: Yes: Deferred Genitourinary: Yes: WNL Breast(s): Yes: WNL Musculoskeletal: Yes: WNL Extremities: Yes: WNL Edema: No Peripheral Pulses WNL: Yes Peripheral Pulses: Left Radial: 2+, Right Radial: 2+ Integumentary: Yes: Rash (pannicular fold rash) Neurological: Yes: WNL ...Motor Strength: WNL Psychiatric: Yes: WNL Labs: CBC, BMP 12/31/19 06:50 12/31/19 06:50 - ....Imaging Other: Report Reviewed (Lab data reviewed) Problem List - Problems (1) NSTEMI (non-ST elevated myocardial infarction) Code(s): I21.4 - NON-ST ELEVATION (NSTEMI) MYOCARDIAL INFARCTION (2) Shortness of breath Code(s): R06.02 - SHORTNESS OF BREATH (3) Anemia Code(s): D64.9 - ANEMIA, UNSPECIFIED Qualifiers: Other causes of anemia: chronic disease, other (4) Back pain Code(s): M54.9 - DORSALGIA, UNSPECIFIED Qualifiers: Back pain location: low back pain Back pain laterality: bilateral (5) Chronic pain Code(s): G89.29 - OTHER CHRONIC PAIN (6) HTN (hypertension) Code(s): I10 - ESSENTIAL (PRIMARY) HYPERTENSION Qualifiers: Hypertension type: essential hypertension Qualified Code(s): I10 - Essential (primary) hypertension (7) Acute sepsis Code(s): A41.9 - SEPSIS, UNSPECIFIED ORGANISM (8) Acute pneumonia Code(s): J18.9 - PNEUMONIA, UNSPECIFIED ORGANISM (9) Acute respiratory failure Code(s): J96.00 - ACUTE RESPIRATORY FAILURE, UNSP W HYPOXIA OR HYPERCAPNIA (10) Neutrophilic leukocytosis Code(s): D72.9 - DISORDER OF WHITE BLOOD CELLS, UNSPECIFIED (11) Chest pain Code(s): R07.9 - CHEST PAIN, UNSPECIFIED (12) Cholelithiasis Code(s): K80.20 - CALCULUS OF GALLBLADDER W/O CHOLECYSTITIS W/O OBSTRUCTION (13) Haemophilus infection Code(s): A49.2 - HEMOPHILUS INFLUENZAE INFECTION, UNSPECIFIED SITE (14) Bacteremia due to Gram-negative bacteria Code(s): R78.81 - BACTEREMIA (15) RUQ abdominal pain Code(s): R10.11 - RIGHT UPPER QUADRANT PAIN (16) History of immunocompromised state Code(s): Z86.2 - PRSNL HISTORY OF DIS OF THE BLD/BLD-FORM ORG/IMMUN MECHNSM (17) Influenza Code(s): J11.1 - FLU DUE TO UNIDENTIFIED INFLUENZA VIRUS W OTH RESP MANIFEST (18) Epigastric abdominal pain Code(s): R10.13 - EPIGASTRIC PAIN (19) Nausea & vomiting Code(s): R11.2 - NAUSEA WITH VOMITING, UNSPECIFIED Qualifiers: Vomiting type: bilious vomiting Qualified Code(s): R11.14 - Bilious vomiting (20) Constipation Code(s): K59.00 - CONSTIPATION, UNSPECIFIED Assessment/Plan Assessment/plan: acute bilateral pneumonia, acute Haemophilus Beta Lactamase positive bacteremia, acute sepsis, acute dyspnea and tachypnea, acute right anterior and posterior lower chest pain, cholelithiasis, moderate hiatal hernia with small to moderate fluid distention of the distal thoracic esophagus, acute nausea, vomiting, and epigastric pain after eating; IV fluids, IV Ceftriaxone, DVT prophylaxis, physical therapy, SCDS, fall precautions, aspiration precautions, IV Protonix, consult to Thoracic Surgeon pending, incentive spirometer, oxygen 3L/min via nasal cannula.
[2020-01-01 07:58] LABS: BASO % 0.9 % (0-2.0); EOS % 3.8 % (0-4.5); HEMATOCRIT 28.6 % (32.4-45.2); HEMOGLOBIN 8.9 GM/dL (10.7-15.3); LYMPH % 17.4 % (8-40); MCH 25.3 pg (25.7-33.7); MCHC 31.1 g/dl (32.0-36.0); MEAN CELL VOLUME 81.2 fl (80-96); MEAN PLT VOLUME 7.9 fl (7.5-11.1); MONO % 6.8 % (3.8-10.2); NEUT % 71.1 % (42.8-82.8); PLATELET COUNT 411 K/MM3 (134-434); RBC 3.52 M/mm3 (3.60-5.2); RDW 21.6 % (11.6-15.6); WHITE BLOOD COUNT 7.5 K/mm3 (4.0-10.0)
[2020-01-01 08:25] LABS: ALBUMIN 2.4 g/dl (3.4-5.0); BILIRUBIN,TOTAL 0.3 mg/dL (0.2-1); BLOOD UREA NITROGEN 7.4 mg/dL (7-18); CALCIUM 8.2 mg/dL (8.5-10.1); CREATININE 0.6 mg/dL (0.55-1.3); POTASSIUM 4.5 mmol/L (3.5-5.1); TOT PROT 6.3 g/dl (6.4-8.2)
[2020-01-01] MEDS ORDERED: DEXTROSE 5%-WATER 100 ML IVPB ONE (09:44)
[2020-01-01] MEDS: ENOXAPARIN NA (PORCINE) 40 MG/0.4 ML DISP.SYRIN SQ SCH (09:48)
[2020-01-01] MEDS: CEFTRIAXONE 2 GM in DEXTROSE 5%-WATER 100 ML IVPB SCH (09:48)
[2020-01-01] MEDS: NYSTATIN POWDER 100,000 UNITS/GM - 15 GM TOPICAL POWDER TP SCH ×2 (09:49→21:53)
[2020-01-01] MEDS: POLYETHYLENE GLYCOL 3350 119 GM BTL PO SCH (09:49)
[2020-01-01] MEDS: PANTOPRAZOLE SODIUM 40 MG VIAL IVPUSH SCH (09:49)
--- NOTE | 2020-01-01 12:28 | PN.GI ---
GI Progress Note Subjective: Tolerating full liquids No N/V. No abdominal pain - Objective Vital Signs: Vital Signs Temperature 98.4 F 01/01/20 06:00 Pulse Rate 73 01/01/20 06:00 Respiratory Rate 01/01/20 06:00 Blood Pressure 135/73 01/01/20 06:00 O2 Sat by Pulse Oximetry (%) 98 12/31/19 21:00 Constitutional: Calm Eyes: No: Sclera Icterus Cardiovascular: Yes: Regular Rate and Rhythm Respiratory: Yes: CTA Bilaterally Gastrointestinal Inspection: No: Distention ...Auscultate: Yes: Normoactive Bowel Sounds ...Palpate: Yes: Soft. No: Tenderness Edema: No (No LE edema) Neurological: Yes: Alert Labs: CBC, BMP 01/01/20 06:45 01/01/20 06:45 Hepatic Panel Total Bilirubin 0.3 mg/dL (0.2-1) 01/01/20 06:45 AST 13 U/L (15-37) L 01/01/20 06:45 ALT 14 U/L (13-61) 01/01/20 06:45 Alkaline Phosphatase 82 U/L (45-117) 01/01/20 06:45 Albumin 2.4 g/dl (3.4-5.0) L 01/01/20 06:45 Problem List - Problems (1) Epigastric abdominal pain Assessment/Plan: Seems to have resolved. Appears quite comfortable today. Recent CT scan revealed hiatal hernia with a fluid filled distal esophagus and moderate hiatal hernia. Symptomatic hiatal hernia would need to be considered in the differential Advise: Continued full liquid diet for now as she seems to be tolerating. Changed to clear liquids on saturday. Plan for Upper endoscopy on saturday to evaluate distal esophagus and hiatal hernia, exclude alternate pathology such as PUD. Discussed with patient and she is in agreement Cardiothoracic evaluation Code(s): R10.13 - EPIGASTRIC PAIN
--- NOTE | 2020-01-01 13:36 | PN ---
Progress Note, Physician History of Present Illness: pulmonary alert,oob-chair,sob improved,less abd pain - Current Medication List Current Medications: Active Medications Acetaminophen (Ofirmev Injection -) 500 mg IVPB Q6H PRN PRN Reason: PAIN LEVEL 4-6 Stop: 01/01/20 18:09 Enoxaparin Sodium (Lovenox -) 40 mg SQ DAILY [facility] Last Admin: 01/01/20 09:48 Dose: 40 mg Ceftriaxone Sodium 2 gm/ (Dextrose) 100 mls @ 100 mls/hr IVPB DAILY [facility]; Protocol Last Admin: 01/01/20 09:48 Dose: 100 mls/hr Potassium Chloride/Dextrose/Sod Cl (D5-1/2ns+20 Meq Kcl -) 20 meq in 1,000 mls @ 75 mls/hr IV ASDIR [facility] Last Admin: 01/01/20 01:02 Dose: 75 mls/hr Insulin Aspart (Novolog Vial Sliding Scale -) 1 vial SQ TIDAC [facility]; Protocol Last Admin: 01/01/20 12:16 Dose: Not Given Nystatin (Nystatin Oral Suspension -) 500,000 units PO Q6HPO [facility] Last Admin: 01/01/20 05:52 Dose: 500,000 units Nystatin (Nystop Powder -) 1 applic TP BID [facility] Last Admin: 01/01/20 09:49 Dose: 1 appful Ondansetron HCl (Zofran Injection) 4 mg IVPUSH Q8H PRN PRN Reason: NAUSEA Last Admin: 12/30/19 13:24 Dose: 4 mg Pantoprazole Sodium (Protonix Iv) 40 mg IVPUSH DAILY [facility] Last Admin: 01/01/20 09:49 Dose: 40 mg Polyethylene Glycol (Miralax (For Daily Use) -) 17 gm PO DAILY [facility] Last Admin: 01/01/20 09:49 Dose: 17 gm - Objective Vital Signs: Vital Signs Temperature 98.4 F 01/01/20 06:00 Pulse Rate 73 01/01/20 06:00 Respiratory Rate 20 01/01/20 06:00 Blood Pressure 135/73 01/01/20 06:00 O2 Sat by Pulse Oximetry (%) 98 12/31/19 21:00 Constitutional: Yes: Well Nourished, Calm Eyes: Yes: WNL HENT: Yes: WNL Neck: Yes: WNL Cardiovascular: Yes: Regular Rate and Rhythm, S1, S2 Respiratory: Yes: CTA Bilaterally Gastrointestinal: Yes: Normal Bowel Sounds, Soft Extremities: Yes: WNL Edema: No Labs: CBC, BMP 01/01/20 06:45 01/01/20 06:45 Assessment/Plan Assessment/Plan Problem List - Problems (1) Influenza Code(s): J11.1 - FLU DUE TO UNIDENTIFIED INFLUENZA VIRUS W OTH RESP MANIFEST (2) Acute pneumonia Code(s): J18.9 - PNEUMONIA, UNSPECIFIED ORGANISM (3) Shortness of breath Code(s): R06.02 - SHORTNESS OF BREATH (4) Anemia Code(s): D64.9 - ANEMIA, UNSPECIFIED Qualifiers: Other causes of anemia: chronic disease, other (5) Back pain Code(s): M54.9 - DORSALGIA, UNSPECIFIED Qualifiers: Back pain location: low back pain Back pain laterality: bilateral (6) Chronic pain Code(s): G89.29 - OTHER CHRONIC PAIN (7) HTN (hypertension) Code(s): I10 - ESSENTIAL (PRIMARY) HYPERTENSION Qualifiers: Hypertension type: essential hypertension Qualified Code(s): I10 - Essential (primary) hypertension (8) Spinal stenosis Code(s): M48.00 - SPINAL STENOSIS, SITE UNSPECIFIED Qualifiers: Spinal region: lumbosacral Qualified Code(s): M48.07 - Spinal stenosis, lumbosacral region 9 BACTEREMIA Assessment/Plan ABX as per ID O2 VTE prophylaxis Will need repeat imaging as an outpatient to ensure resolution of infiltrates in this immunocompromised host inhaled bronchodilators DR MOTA
--- NOTE | 2020-01-01 14:04 | CONSULT ---
- Consultation REQUESTING PROVIDER: Thoracic Surgery - Dr. Alaniz CONSULT REQUEST: We have been asked to surgically evaluate this patient for hiatal hernia PCP: Alvin Walters History Provided By: Patient, Family Member (daughter over phone), Medical Record Limitations to Obtaining History: Language Barrier (pt speaks Armenian and Bengali) HPI: Called to eval 74 yo female with PMHx as noted below. Presents to [facility] ED and admitted 10 days ago with primarily respiratory issues found to have PNA and H. flu bacteremia, now improved on antibiotics. C/o intermittent n/v and epigastric pain. A CT scan identified stool in colon, but not significant constipation, as well as a moderate hiatal hernia with dilation of distal esophagus (? proximal stomach) and retained material. Gallstones were noted, but not cholecystitis. Daughter states her mother has had this before in the past. Said he mother feels like "it gets stuck in my chest after I swallow". Feels better after vomiting. Patient does have a h/i indigestion which often leaves a sour/bitter taste in her mouth. Associated with chronic cough. Patient sees Dr. Alvarez/GI. He perofrmed a colonoscopy on her 2 years ago but patient states never did EGD. Currently, despite NPO sign over bed, patient is tolerating CLEARS. Denies abd pain. N/V. CP, SOB, ROMERO. PMHx: Migraine, HTN, Pneumonia, Constipation, Postmenopausal, Genital HSV, Chronic low back pain, Rheumatoid Arthritis PSHx: Colonoscopy (2 yrs ago (Dr. 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 Home Meds Etanercept [Enbrel Sureclick] 50 mg SQ ASDIR 12/22/19 Folic Acid 1 mg PO DAILY 12/22/19 Ibandronate Sodium [Boniva] 150 mg PO ASDIR 12/22/19 Methotrexate Sodium [Methotrexate] 2.5 mg PO ASDIR 12/22/19 Triamcinolone 0.5% Cream [Aristocort 0.5% Cream -] 1 applic TD BID 12/22/19 Allergies: NKDA ROS: CONSTITUTIONAL: Absent: generalized weakness, malaise, loss of appetite, weight change CARDIOVASCULAR: Absent: syncope, irregular heart rate, lightheadedness, peripheral edema RESPIRATORY: Absent: wheezing, stridor, hemoptysis GASTROINTESTINALAbsent: diarrhea, constipation, melena, hematochezia GENITOURINARY: Absent:, hesitancy, hematuria, flank pain MUSCULOSKELETAL: Absent: myalgia, arthralgia, joint swelling, back pain, neck pain SKIN: Absent: rash, itching, pallor HEMATOLOGIC/IMMUNOLOGIC: Absent: easy bleeding, easy bruising, lymphadenopathy NEUROLOGIC: Absent: headache, focal weakness, unsteady gait, seizure, mental status changes, bladder or bowel incontinence PSYCHIATRIC: Absent: anxiety, depression, suicidal or homicidal ideation, hallucinations. PE: GENERAL: A&O. NAD HEAD: NC.AT. EYES: PERRL, sclera anicteric, conjunctiva clear. LUNGS: CTA bilat HEART: RRR ABD: Obese habtus. Soft, Normoactive bowel sounds. NT. ND. No palpable hernias appreciated. MUSCULOSKELETAL: No CVAT bilat UE: 2+ pulses, warm, well-perfused. No cyanosis. Cap refill <2 seconds. No peripheral edema. LE: 2+ pulses, warm, well-perfused. No calf tenderness. No peripheral edema. NEUROLOGICAL: Normal speech, gait not observed. PSYCH: Cooperative. Good eye contact. Appropriate mood and affect. SKIN: Warm, dry, normal turgor, no rashes or lesions noted. Last Vital Signs Temp Pulse Resp BP Pulse Ox 98.4 F 73 20 135/73 98 01/01/20 06:00 01/01/20 06:00 01/01/20 06:00 01/01/20 06:00 12/31/19 21:00 CBC, BMP 01/01/20 06:45 01/01/20 06:45 Hepatic Panel Total Bilirubin 0.3 mg/dL (0.2-1) 01/01/20 06:45 AST 13 U/L (15-37) L 01/01/20 06:45 ALT 14 U/L (13-61) 01/01/20 06:45 Alkaline Phosphatase 82 U/L (45-117) 01/01/20 06:45 Albumin 2.4 g/dl (3.4-5.0) L 01/01/20 06:45 Urine Test Results Urine Color Yellow 12/23/19 15:35 Urine Appearance Clear 12/23/19 15:35 Urine pH 6.5 (5.0-8.0) 12/23/19 15:35 Ur Specific [place] 1.026 (1.010-1.035) 12/23/19 15:35 Urine Protein 1+ (NEGATIVE) H 12/23/19 15:35 Urine Glucose (UA) Negative (NEGATIVE) 12/23/19 15:35 Urine Ketones Negative (NEGATIVE) 12/23/19 15:35 Urine Blood Negative (NEGATIVE) 12/23/19 15:35 Urine Nitrite Negative (NEGATIVE) 12/23/19 15:35 Urine Bilirubin Negative (NEGATIVE) 12/23/19 15:35 Ur Leukocyte Esterase 1+ (NEGATIVE) H 12/23/19 15:35 Problem List - Problems (1) Hiatal hernia Assessment/Plan: 74 yo female admitted with PNA, H. Flu and bacteremia. An ABD CT found a moderate sized hiatal hernia ( ? sliding) as it's chronic in nature. Patient is currently asymptomatic, tolerating clear liquid diet. Recommend Esophogram Cont medical management Above discussed with Dr. Alaniz (Thoracic Surgeon) who will be in later today to see patient Code(s): K44.9 - DIAPHRAGMATIC HERNIA WITHOUT OBSTRUCTION OR GANGRENE (2) Acute pneumonia Code(s): J18.9 - PNEUMONIA, UNSPECIFIED ORGANISM (3) Epigastric abdominal pain Code(s): R10.13 - EPIGASTRIC PAIN (4) Haemophilus infection Code(s): A49.2 - HEMOPHILUS INFLUENZAE INFECTION, UNSPECIFIED SITE (5) Rheumatoid arthritis Code(s): M06.9 - RHEUMATOID ARTHRITIS, UNSPECIFIED Qualifiers: Rheumatoid arthritis location: unspecified site Rheumatoid factor presence : unspecified presence Qualified Code(s): M06.9 - Rheumatoid arthritis, unspecified (6) Shortness of breath Code(s): R06.02 - SHORTNESS OF BREATH (7) Back pain Code(s): M54.9 - DORSALGIA, UNSPECIFIED Qualifiers: Back pain location: low back pain Back pain laterality: bilateral (8) Genital HSV Code(s): A60.00 - HERPESVIRAL INFECTION OF UROGENITAL SYSTEM, UNSPECIFIED (9) HTN (hypertension) Code(s): I10 - ESSENTIAL (PRIMARY) HYPERTENSION Qualifiers: Hypertension type: essential hypertension Qualified Code(s): I10 - Essential (primary) hypertension Visit type - Case Type Case Type: ED Admission - Emergency Emergency Visit: Yes ED Registration Date: 12/22/19 Care time: The patient presented to the Emergency Department on the above date and was hospitalized for further evaluation of their emergent condition. - New patient This patient is new to me today: Yes Date on this admission: 01/01/20
--- NOTE | 2020-01-01 14:18 | PN ---
Progress Note (short form) - Note Progress Note: s: no chest pain, palps, dizziness, dyspnea. Current Medications Generic Name Dose Route Start Last Admin Trade Name Freq PRN Reason Stop Dose Admin Acetaminophen 500 mg 12/31/19 18:09 Ofirmev Injection - IVPB 01/01/20 18:09 Q6H PRN PAIN LEVEL 4-6 Enoxaparin Sodium 40 mg 12/30/19 10:00 01/01/20 09:48 Lovenox - SQ 40 mg DAILY JANI Administration Ceftriaxone Sodium 2 gm/ 100 mls @ 100 mls/hr 12/30/19 10:00 01/01/20 09:48 Dextrose IVPB 100 mls/hr DAILY JANI Administration Protocol Potassium Chloride/Dextrose/Sod Cl 20 meq in 1,000 mls @ 75 mls/hr 12/31/19 18 :13 01/01/20 01:02 D5-1/2ns+20 Meq Kcl - IV 75 mls/hr ASDIR JANI Administration Insulin Aspart 1 vial 12/30/19 07:00 01/01/20 12:16 Novolog Vial Sliding Scale - SQ Not Given TIDAC JANI Protocol Nystatin 500,000 units 12/30/19 02:15 01/01/20 13:50 Nystatin Oral Suspension - PO 500,000 units Q6HPO JANI Administration Nystatin 1 applic 01/01/20 10:00 01/01/20 09:49 Nystop Powder - TP 1 appful BID JANI Administration Ondansetron HCl 4 mg 12/29/19 08:22 12/30/19 13:24 Zofran Injection IVPUSH 4 mg Q8H PRN Administration NAUSEA Pantoprazole Sodium 40 mg 12/31/19 10:00 01/01/20 09:49 Protonix Iv IVPUSH 40 mg DAILY JANI Administration Polyethylene Glycol 17 gm 12/30/19 10:15 01/01/20 09:49 Miralax (For Daily Use) - PO 17 gm DAILY JANI Administration Vital Signs Period Temp Pulse Resp BP Sys/Anand Pulse Ox Last 24 Hr 98.4 F-99.1 F 73-80 20-20 121-135/59-88 98 Constitutional: Yes: No Distress Eyes: Yes: Conjunctiva Clear, EOM Intact Cardiovascular: Yes: Regular Rate and Rhythm Respiratory: Yes: Rhonchi, Other (diffuse mild rhonchi with decreased basilar breath sounds, no active wheezing) Gastrointestinal: Yes: Soft, Abdomen, Obese Edema: No Neurological: Yes: Alert, Oriented no jaundice, diaphoresis not agitated CBC, BMP 01/01/20 06:45 01/01/20 06:45 Assessment/Plan EKG:sinus tach, no ischemic changes CT chest: shine pneumonic infiltrates, mild bronchiectatic changes in lower lobes , cannot exclude congestion or chronic ILD elevated trop - EKG no ischemic changes - flat trend, indeterminate range, likely demand in setting of PNA, no signs acs - echo with nl lvef, no sig valve abnormalities - recommend nuclear stress when recovers, can be done as outpatient PNA, flu: - manage per primary, improving HTN: - cont home meds anemia: - manage per primary NSVT - nl EF here - replete lytes for K>4, Mg>2 abd pain - workup per GI
--- NOTE | 2020-01-01 15:07 | PN ---
Progress Note (short form) - Note Progress Note: less abdominal pain no vomiting today Vital Signs Period Temp Pulse Resp BP Sys/Anand Pulse Ox Last 24 Hr 97.9 F-99.1 F 73-84 20-20 121-135/59-88 94-98 cor-rrr lungs clear abd mild midepigastric discomfort to palpation ext no edema CBC, BMP 01/01/20 06:45 01/01/20 06:45 Microbiology 12/24/19 13:50 Blood - Peripheral Venous Blood Culture - Final NO GROWTH AFTER 5 DAYS INCUBATION 12/24/19 13:57 Blood - Peripheral Venous Blood Culture - Final NO GROWTH AFTER 5 DAYS INCUBATION 12/21/19 23:24 Blood - Peripheral Venous Blood Culture - Preliminary Haemophilus Influenzae Iii 12/21/19 23:24 Blood - Peripheral Venous Blood Culture - Final Haemophilus Influenzae Iii 12/23/19 15:35 Urine - Urine Clean Catch Urine Culture - Final NO GROWTH OBTAINED 12/23/19 15:35 Urine - Urine Clean Catch Legionella Antigen - Final 12/23/19 15:35 Urine - Urine Clean Catch Streptococcus pneumoniae Antigen ( M - Final sonogram +gallstones a/p hemophilus bacteremia- betal lactamase positive- pneumonia has completed 11 days of antibiotics complements and quant immunoglobins wnl probably secondary to immunosuppression from her RA hiatal hernia/midepigastric pain- GI eval will d/c rocephin and observe d/w PMD Problem List - Problems (1) Acute pneumonia Code(s): J18.9 - PNEUMONIA, UNSPECIFIED ORGANISM (2) Influenza Code(s): J11.1 - FLU DUE TO UNIDENTIFIED INFLUENZA VIRUS W OTH RESP MANIFEST (3) History of immunocompromised state Code(s): Z86.2 - PRSNL HISTORY OF DIS OF THE BLD/BLD-FORM ORG/IMMUN MECHNSM
[2020-01-02] MEDS: NYSTATIN 500,000 UNITS/5 ML SUSPENSION PO SCH ×3 (01:42→12:21)
[2020-01-02] MEDS: INSULIN SLIDING SCALE (NOVOLOG) 1 VIAL SQ SCH ×3 (06:19→16:14)
[2020-01-02] MEDS: D5-1/2NS+20 MEQ KCL - 20 MEQ/1,000 ML INFUS.BAG IV SCH ×3 (08:02→21:16)
--- NOTE | 2020-01-02 10:17 | PN ---
Progress Note (short form) - Note Progress Note: s: no chest pain, palps, dizziness, dyspnea. Current Medications Generic Name Dose Route Start Last Admin Trade Name Freq PRN Reason Stop Dose Admin Enoxaparin Sodium 40 mg 12/30/19 10:00 01/01/20 09:48 Lovenox - SQ 40 mg DAILY JANI Administration Potassium Chloride/Dextrose/Sod Cl 20 meq in 1,000 mls @ 75 mls/hr 12/31/19 18 :13 01/02/20 08:02 D5-1/2ns+20 Meq Kcl - IV 75 mls/hr ASDIR JANI Administration Insulin Aspart 1 vial 12/30/19 07:00 01/02/20 06:19 Novolog Vial Sliding Scale - SQ Not Given TIDAC JANI Protocol Nystatin 500,000 units 12/30/19 02:15 01/02/20 06:19 Nystatin Oral Suspension - PO 500,000 units Q6HPO JANI Administration Nystatin 1 applic 01/01/20 10:00 01/01/20 21:53 Nystop Powder - TP 1 appful BID JANI Administration Ondansetron HCl 4 mg 12/29/19 08:22 12/30/19 13:24 Zofran Injection IVPUSH 4 mg Q8H PRN Administration NAUSEA Pantoprazole Sodium 40 mg 12/31/19 10:00 01/01/20 09:49 Protonix Iv IVPUSH 40 mg DAILY JANI Administration Polyethylene Glycol 17 gm 12/30/19 10:15 01/01/20 09:49 Miralax (For Daily Use) - PO 17 gm DAILY JANI Administration Vital Signs Period Temp Pulse Resp BP Sys/Anand Pulse Ox Last 24 Hr 98.4 F-99 F 68-96 20-20 123-141/57-99 95-100 Constitutional: Yes: No Distress Eyes: Yes: Conjunctiva Clear, EOM Intact Cardiovascular: Yes: Regular Rate and Rhythm Respiratory: Yes: Rhonchi, Other (diffuse mild rhonchi with decreased basilar breath sounds, no active wheezing) Gastrointestinal: Yes: Soft, Abdomen, Obese Edema: No Neurological: Yes: Alert, Oriented no jaundice, diaphoresis not agitated CBC, BMP 01/01/20 06:45 01/01/20 06:45 Assessment/Plan EKG:sinus tach, no ischemic changes CT chest: shine pneumonic infiltrates, mild bronchiectatic changes in lower lobes , cannot exclude congestion or chronic ILD elevated trop - EKG no ischemic changes - flat trend, indeterminate range, likely demand in setting of PNA, no signs acs - echo with nl lvef, no sig valve abnormalities - recommend nuclear stress when recovers, can be done as outpatient PNA, flu: - abx complete, ID following HTN: - cont home meds anemia: - manage per primary NSVT - nl EF here - replete lytes for K>4, Mg>2 abd pain - workup per GI - no cardiac contraindications to egd
[2020-01-02] MEDS: ENOXAPARIN NA (PORCINE) 40 MG/0.4 ML DISP.SYRIN SQ SCH (10:54)
[2020-01-02] MEDS: PANTOPRAZOLE SODIUM 40 MG VIAL IVPUSH SCH (10:54)
[2020-01-02] MEDS: POLYETHYLENE GLYCOL 3350 119 GM BTL PO SCH (10:59)
--- NOTE | 2020-01-02 11:49 | PN ---
Progress Note, Physician History of Present Illness: pulmonary alert,comfortable,oob-chair,-sob - Current Medication List Current Medications: Active Medications Enoxaparin Sodium (Lovenox -) 40 mg SQ DAILY COUNT INCLUDES THE [facility] Last Admin: 01/02/20 10:54 Dose: 40 mg Potassium Chloride/Dextrose/Sod Cl (D5-1/2ns+20 Meq Kcl -) 20 meq in 1,000 mls @ 75 mls/hr IV ASDIR COUNT INCLUDES THE [facility] Last Admin: 01/02/20 08:02 Dose: 75 mls/hr Insulin Aspart (Novolog Vial Sliding Scale -) 1 vial SQ TIDAC COUNT INCLUDES THE [facility]; Protocol Last Admin: 01/02/20 06:19 Dose: Not Given Nystatin (Nystatin Oral Suspension -) 500,000 units PO Q6HPO COUNT INCLUDES THE [facility] Last Admin: 01/02/20 06:19 Dose: 500,000 units Nystatin (Nystop Powder -) 1 applic TP BID COUNT INCLUDES THE [facility] Last Admin: 01/01/20 21:53 Dose: 1 appful Ondansetron HCl (Zofran Injection) 4 mg IVPUSH Q8H PRN PRN Reason: NAUSEA Last Admin: 12/30/19 13:24 Dose: 4 mg Pantoprazole Sodium (Protonix Iv) 40 mg IVPUSH DAILY COUNT INCLUDES [facility] Last Admin: 01/02/20 10:54 Dose: 40 mg Polyethylene Glycol (Miralax (For Daily Use) -) 17 gm PO DAILY COUNT INCLUDES [facility] Last Admin: 01/02/20 10:59 Dose: Not Given - Objective Vital Signs: Vital Signs Temperature 98.3 F 01/02/20 09:00 Pulse Rate 76 01/02/20 09:00 Respiratory Rate 20 01/02/20 09:00 Blood Pressure 129/71 01/02/20 09:00 O2 Sat by Pulse Oximetry (%) 100 01/02/20 05:47 Constitutional: Yes: Well Nourished, Calm Eyes: Yes: WNL HENT: Yes: WNL Neck: Yes: WNL Cardiovascular: Yes: Regular Rate and Rhythm, S1, S2 Respiratory: Yes: Rales (few bibasilar rales) Gastrointestinal: Yes: Normal Bowel Sounds, Soft Extremities: Yes: WNL Edema: No Labs: CBC, BMP 01/01/20 06:45 Assessment/Plan Assessment/Plan Problem List - Problems (1) Influenza Code(s): J11.1 - FLU DUE TO UNIDENTIFIED INFLUENZA VIRUS W OTH RESP MANIFEST (2) Acute pneumonia Code(s): J18.9 - PNEUMONIA, UNSPECIFIED ORGANISM (3) Shortness of breath Code(s): R06.02 - SHORTNESS OF BREATH (4) Anemia Code(s): D64.9 - ANEMIA, UNSPECIFIED Qualifiers: Other causes of anemia: chronic disease, other (5) Back pain Code(s): M54.9 - DORSALGIA, UNSPECIFIED Qualifiers: Back pain location: low back pain Back pain laterality: bilateral (6) Chronic pain Code(s): G89.29 - OTHER CHRONIC PAIN (7) HTN (hypertension) Code(s): I10 - ESSENTIAL (PRIMARY) HYPERTENSION Qualifiers: Hypertension type: essential hypertension Qualified Code(s): I10 - Essential (primary) hypertension (8) Spinal stenosis Code(s): M48.00 - SPINAL STENOSIS, SITE UNSPECIFIED Qualifiers: Spinal region: lumbosacral Qualified Code(s): M48.07 - Spinal stenosis, lumbosacral region 9 BACTEREMIA Assessment/Plan O2 VTE prophylaxis Will need repeat imaging as an outpatient to ensure resolution of infiltrates in this immunocompromised host inhaled bronchodilators DR MOTA
--- NOTE | 2020-01-02 11:57 | PN ---
Progress Note (short form) - Note Progress Note: Denies any vomiting or abdominal pain. Abdomen: soft, nontender, no masses palpable. For EGD Saturday. Case discussed with Dr Walters. Pt's overall medical condition probably precludes hiatal hernia repair, even though the hernia (and reflux) may have contributed to her pneumonia.
[2020-01-02] MEDS: NYSTATIN POWDER 100,000 UNITS/GM - 15 GM TOPICAL POWDER TP SCH ×2 (12:03→21:16)
--- NOTE | 2020-01-02 12:07 | PN ---
Progress Note, Physician Chief Complaint: Patient seen and examined at the bedside, no acute events from last night, tolerating liquids well. History of Present Illness: This 74 yr old w/f with hx of rheumatoid arthritis, and HTN admitted via ER with an acute bilateral pneumonia, acute Haemophilus Beta lactamase positive bacteremia, acute sepsis, acutely severe dyspnea and tachypnea, and an acute right anterior and posterior lower chest pain. Ultrasound of abdomen revealed cholelithiasis. CT scan of abdomen revealed moderate sliding hiatal hernia, and colonic diverticulosis. - Current Medication List Current Medications: Active Medications Enoxaparin Sodium (Lovenox -) 40 mg SQ DAILY [facility] Last Admin: 01/02/20 10:54 Dose: 40 mg Potassium Chloride/Dextrose/Sod Cl (D5-1/2ns+20 Meq Kcl -) 20 meq in 1,000 mls @ 75 mls/hr IV ASDIR [facility] Last Admin: 01/02/20 08:02 Dose: 75 mls/hr Insulin Aspart (Novolog Vial Sliding Scale -) 1 vial SQ TIDAC [facility]; Protocol Last Admin: 01/02/20 06:19 Dose: Not Given Nystatin (Nystatin Oral Suspension -) 500,000 units PO Q6HPO [facility] Last Admin: 01/02/20 06:19 Dose: 500,000 units Nystatin (Nystop Powder -) 1 applic TP BID [facility] Last Admin: 01/01/20 21:53 Dose: 1 appful Ondansetron HCl (Zofran Injection) 4 mg IVPUSH Q8H PRN PRN Reason: NAUSEA Last Admin: 12/30/19 13:24 Dose: 4 mg Pantoprazole Sodium (Protonix Iv) 40 mg IVPUSH DAILY [facility] Last Admin: 01/02/20 10:54 Dose: 40 mg Polyethylene Glycol (Miralax (For Daily Use) -) 17 gm PO DAILY [facility] Last Admin: 01/02/20 10:59 Dose: Not Given - Objective Vital Signs: Vital Signs Temperature 98.3 F 01/02/20 09:00 Pulse Rate 76 01/02/20 09:00 Respiratory Rate 20 01/02/20 09:00 Blood Pressure 129/71 01/02/20 09:00 O2 Sat by Pulse Oximetry (%) 100 01/02/20 05:47 Constitutional: Yes: Well Nourished, No Distress, Calm Eyes: Yes: Conjunctiva Clear, EOM Intact HENT: Yes: Atraumatic, Normocephalic Neck: Yes: Supple, Trachea Midline Cardiovascular: Yes: Regular Rate and Rhythm Respiratory: Yes: Regular, CTA Bilaterally Gastrointestinal: Yes: Normal Bowel Sounds, Soft, Hernia (hiatal) ...Rectal Exam: Yes: Deferred Genitourinary: Yes: WNL Breast(s): Yes: WNL Musculoskeletal: Yes: WNL Edema: No Peripheral Pulses WNL: Yes Peripheral Pulses: Left Radial: 2+, Right Radial: 2+ Integumentary: Yes: WNL Neurological: Yes: WNL ...Motor Strength: WNL Psychiatric: Yes: WNL Labs: CBC, BMP 01/01/20 06:45 01/01/20 06:45 - ....Imaging Other: Report Reviewed (Lab data reviewed) Problem List - Problems (1) NSTEMI (non-ST elevated myocardial infarction) Code(s): I21.4 - NON-ST ELEVATION (NSTEMI) MYOCARDIAL INFARCTION (2) Shortness of breath Code(s): R06.02 - SHORTNESS OF BREATH (3) Anemia Code(s): D64.9 - ANEMIA, UNSPECIFIED Qualifiers: Other causes of anemia: chronic disease, other (4) Back pain Code(s): M54.9 - DORSALGIA, UNSPECIFIED Qualifiers: Back pain location: low back pain Back pain laterality: bilateral (5) Chronic pain Code(s): G89.29 - OTHER CHRONIC PAIN (6) HTN (hypertension) Code(s): I10 - ESSENTIAL (PRIMARY) HYPERTENSION Qualifiers: Hypertension type: essential hypertension Qualified Code(s): I10 - Essential (primary) hypertension (7) Acute sepsis Code(s): A41.9 - SEPSIS, UNSPECIFIED ORGANISM (8) Acute pneumonia Code(s): J18.9 - PNEUMONIA, UNSPECIFIED ORGANISM (9) Acute respiratory failure Code(s): J96.00 - ACUTE RESPIRATORY FAILURE, UNSP W HYPOXIA OR HYPERCAPNIA (10) Neutrophilic leukocytosis Code(s): D72.9 - DISORDER OF WHITE BLOOD CELLS, UNSPECIFIED (11) Chest pain Code(s): R07.9 - CHEST PAIN, UNSPECIFIED (12) Cholelithiasis Code(s): K80.20 - CALCULUS OF GALLBLADDER W/O CHOLECYSTITIS W/O OBSTRUCTION (13) Haemophilus infection Code(s): A49.2 - HEMOPHILUS INFLUENZAE INFECTION, UNSPECIFIED SITE (14) Bacteremia due to Gram-negative bacteria Code(s): R78.81 - BACTEREMIA (15) RUQ abdominal pain Code(s): R10.11 - RIGHT UPPER QUADRANT PAIN (16) History of immunocompromised state Code(s): Z86.2 - PRSNL HISTORY OF DIS OF THE BLD/BLD-FORM ORG/IMMUN MECHNSM (17) Influenza Code(s): J11.1 - FLU DUE TO UNIDENTIFIED INFLUENZA VIRUS W OTH RESP MANIFEST (18) Epigastric abdominal pain Code(s): R10.13 - EPIGASTRIC PAIN (19) Nausea & vomiting Code(s): R11.2 - NAUSEA WITH VOMITING, UNSPECIFIED Qualifiers: Vomiting type: bilious vomiting Qualified Code(s): R11.14 - Bilious vomiting (20) Constipation Code(s): K59.00 - CONSTIPATION, UNSPECIFIED Assessment/Plan Assessment/plan: acute bilateral pneumonia, acute Haemophilus Beta lactamase positive bacteremia, acute dyspnea and tachypnea, acute productive cough, acute nausea, vomiting and epigastric pain after eating, acute moderate hiatal hernia with fluid distention of distal thoracic esophagus, cholelithiasis, colonic diverticulosis; IV fluids, DVT prophylaxis, SCDS, physical therapy, fall precautions, aspiration precautions, oxygen 2L/min via nasal cannula, scheduled for EGD on Saturday, incentive spirometer.
[2020-01-03] MEDS: INSULIN SLIDING SCALE (NOVOLOG) 1 VIAL SQ SCH ×3 (06:08→16:26)
[2020-01-03 08:26] LABS: BASO % 0.3 % (0-2.0); EOS % 4.5 % (0-4.5); HEMATOCRIT 29.8 % (32.4-45.2); HEMOGLOBIN 9.3 GM/dL (10.7-15.3); LYMPH % 27.9 % (8-40); MCH 25.6 pg (25.7-33.7); MCHC 31.2 g/dl (32.0-36.0); MEAN CELL VOLUME 82.2 fl (80-96); MEAN PLT VOLUME 7.8 fl (7.5-11.1); MONO % 7.5 % (3.8-10.2); NEUT % 59.8 % (42.8-82.8); PLATELET COUNT 456 K/MM3 (134-434); RBC 3.63 M/mm3 (3.60-5.2); RDW 22.5 % (11.6-15.6); WHITE BLOOD COUNT 6.2 K/mm3 (4.0-10.0)
[2020-01-03 08:58] LABS: ALBUMIN 2.6 g/dl (3.4-5.0); BILIRUBIN,TOTAL 0.3 mg/dL (0.2-1); BLOOD UREA NITROGEN 5.6 mg/dL (7-18); CALCIUM 8.7 mg/dL (8.5-10.1); CREATININE 0.6 mg/dL (0.55-1.3); POTASSIUM 4.6 mmol/L (3.5-5.1); TOT PROT 6.9 g/dl (6.4-8.2)
--- NOTE | 2020-01-03 09:49 | PN ---
Progress Note (short form) - Note Progress Note: s: no chest pain, palps, dizziness, dyspnea. Current Medications Generic Name Dose Route Start Last Admin Trade Name Freq PRN Reason Stop Dose Admin Enoxaparin Sodium 40 mg 12/30/19 10:00 01/02/20 10:54 Lovenox - SQ 40 mg DAILY JANI Administration Potassium Chloride/Dextrose/Sod Cl 20 meq in 1,000 mls @ 75 mls/hr 12/31/19 18 :13 01/02/20 21:16 D5-1/2ns+20 Meq Kcl - IV 75 mls/hr ASDIR JANI Administration Insulin Aspart 1 vial 12/30/19 07:00 01/03/20 06:08 Novolog Vial Sliding Scale - SQ Not Given TIDAC JANI Protocol Nystatin 1 applic 01/01/20 10:00 01/02/20 21:16 Nystop Powder - TP 1 appful BID JANI Administration Ondansetron HCl 4 mg 12/29/19 08:22 12/30/19 13:24 Zofran Injection IVPUSH 4 mg Q8H PRN Administration NAUSEA Pantoprazole Sodium 40 mg 12/31/19 10:00 01/02/20 10:54 Protonix Iv IVPUSH 40 mg DAILY JANI Administration Polyethylene Glycol 17 gm 12/30/19 10:15 01/02/20 10:59 Miralax (For Daily Use) - PO Not Given DAILY JANI Vital Signs Period Temp Pulse Resp BP Sys/Anand Pulse Ox Last 24 Hr 98.3 F-98.6 F 74-83 20-20 114-142/60-71 96 Constitutional: Yes: No Distress Eyes: Yes: Conjunctiva Clear, EOM Intact Cardiovascular: Yes: Regular Rate and Rhythm Respiratory: Yes: Rhonchi, Other (diffuse mild rhonchi with decreased basilar breath sounds, no active wheezing) Gastrointestinal: Yes: Soft, Abdomen, Obese Edema: No Neurological: Yes: Alert, Oriented no jaundice, diaphoresis not agitated CBC, BMP 01/03/20 07:55 01/03/20 07:55 Assessment/Plan EKG:sinus tach, no ischemic changes CT chest: shine pneumonic infiltrates, mild bronchiectatic changes in lower lobes , cannot exclude congestion or chronic ILD elevated trop - EKG no ischemic changes - flat trend, indeterminate range, likely demand in setting of PNA, no signs acs - echo with nl lvef, no sig valve abnormalities - recommend nuclear stress when recovers, can be done as outpatient PNA, flu: - abx complete, ID following HTN: - cont home meds anemia: - manage per primary NSVT - nl EF here - replete lytes for K>4, Mg>2 abd pain - workup per GI - no cardiac contraindications to egd
[2020-01-03] MEDS: POLYETHYLENE GLYCOL 3350 119 GM BTL PO SCH (09:50)
[2020-01-03] MEDS: PANTOPRAZOLE SODIUM 40 MG VIAL IVPUSH SCH (09:50)
--- NOTE | 2020-01-03 10:50 | PN ---
Progress Note, Physician Chief Complaint: Patient seen and examined at the bedside, no acute events from last night, tolerating liquids well. History of Present Illness: This 74 yr old female with hx of rheumatoid arthritis and HTN admitted via ER with an acute bilateral pneumonia, acute pneumonia of the right middle lobe, acutely severe dyspnea and tachypnea, and an acute right lower anterior and posterior chest pain. Ultrasound revealed cholelithiasis without cholecystitis. CT scan of abdomen revealed moderate hiatal hernia with fluid distention of the distal thoracic esophagus. - Current Medication List Current Medications: Active Medications Enoxaparin Sodium (Lovenox -) 40 mg SQ DAILY [facility] Last Admin: 01/02/20 10:54 Dose: 40 mg Potassium Chloride/Dextrose/Sod Cl (D5-1/2ns+20 Meq Kcl -) 20 meq in 1,000 mls @ 75 mls/hr IV ASDIR [facility] Last Admin: 01/02/20 21:16 Dose: 75 mls/hr Insulin Aspart (Novolog Vial Sliding Scale -) 1 vial SQ TIDAC [facility]; Protocol Last Admin: 01/03/20 06:08 Dose: Not Given Nystatin (Nystop Powder -) 1 applic TP BID [facility] Last Admin: 01/02/20 21:16 Dose: 1 appful Ondansetron HCl (Zofran Injection) 4 mg IVPUSH Q8H PRN PRN Reason: NAUSEA Last Admin: 12/30/19 13:24 Dose: 4 mg Pantoprazole Sodium (Protonix Iv) 40 mg IVPUSH DAILY [facility] Last Admin: 01/03/20 09:50 Dose: 40 mg Polyethylene Glycol (Miralax (For Daily Use) -) 17 gm PO DAILY [facility] Last Admin: 01/03/20 09:50 Dose: 17 gm - Objective Vital Signs: Vital Signs Temperature 98.4 F 01/03/20 08:59 Pulse Rate 78 01/03/20 08:59 Respiratory Rate 20 01/03/20 08:59 Blood Pressure 134/71 01/03/20 08:59 O2 Sat by Pulse Oximetry (%) 96 01/02/20 21:00 Constitutional: Yes: Well Nourished, No Distress, Calm Eyes: Yes: Conjunctiva Clear, EOM Intact HENT: Yes: Atraumatic, Normocephalic Neck: Yes: Supple, Trachea Midline Cardiovascular: Yes: Regular Rate and Rhythm Respiratory: Yes: Regular, CTA Bilaterally Gastrointestinal: Yes: Normal Bowel Sounds, Soft, Hernia (moderate hiatal hernia ) ...Rectal Exam: Yes: Deferred Genitourinary: Yes: WNL Breast(s): Yes: WNL Musculoskeletal: Yes: WNL Extremities: Yes: WNL Edema: No Peripheral Pulses WNL: Yes Peripheral Pulses: Left Radial: 2+, Right Radial: 2+ Integumentary: Yes: WNL Neurological: Yes: Alert, Oriented ...Motor Strength: WNL Psychiatric: Yes: WNL Labs: CBC, BMP 01/03/20 07:55 01/03/20 07:55 - ....Imaging Other: Report Reviewed (Lab data reviewed) Problem List - Problems (1) NSTEMI (non-ST elevated myocardial infarction) Code(s): I21.4 - NON-ST ELEVATION (NSTEMI) MYOCARDIAL INFARCTION (2) Shortness of breath Code(s): R06.02 - SHORTNESS OF BREATH (3) Anemia Code(s): D64.9 - ANEMIA, UNSPECIFIED Qualifiers: Other causes of anemia: chronic disease, other (4) Back pain Code(s): M54.9 - DORSALGIA, UNSPECIFIED Qualifiers: Back pain location: low back pain Back pain laterality: bilateral (5) Chronic pain Code(s): G89.29 - OTHER CHRONIC PAIN (6) HTN (hypertension) Code(s): I10 - ESSENTIAL (PRIMARY) HYPERTENSION Qualifiers: Hypertension type: essential hypertension Qualified Code(s): I10 - Essential (primary) hypertension (7) Acute sepsis Code(s): A41.9 - SEPSIS, UNSPECIFIED ORGANISM (8) Acute pneumonia Code(s): J18.9 - PNEUMONIA, UNSPECIFIED ORGANISM (9) Acute respiratory failure Code(s): J96.00 - ACUTE RESPIRATORY FAILURE, UNSP W HYPOXIA OR HYPERCAPNIA (10) Neutrophilic leukocytosis Code(s): D72.9 - DISORDER OF WHITE BLOOD CELLS, UNSPECIFIED (11) Chest pain Code(s): R07.9 - CHEST PAIN, UNSPECIFIED (12) Cholelithiasis Code(s): K80.20 - CALCULUS OF GALLBLADDER W/O CHOLECYSTITIS W/O OBSTRUCTION (13) Haemophilus infection Code(s): A49.2 - HEMOPHILUS INFLUENZAE INFECTION, UNSPECIFIED SITE (14) Bacteremia due to Gram-negative bacteria Code(s): R78.81 - BACTEREMIA (15) RUQ abdominal pain Code(s): R10.11 - RIGHT UPPER QUADRANT PAIN (16) History of immunocompromised state Code(s): Z86.2 - PRSNL HISTORY OF DIS OF THE BLD/BLD-FORM ORG/IMMUN MECHNSM (17) Influenza Code(s): J11.1 - FLU DUE TO UNIDENTIFIED INFLUENZA VIRUS W OTH RESP MANIFEST (18) Epigastric abdominal pain Code(s): R10.13 - EPIGASTRIC PAIN (19) Nausea & vomiting Code(s): R11.2 - NAUSEA WITH VOMITING, UNSPECIFIED Qualifiers: Vomiting type: bilious vomiting Qualified Code(s): R11.14 - Bilious vomiting (20) Constipation Code(s): K59.00 - CONSTIPATION, UNSPECIFIED Assessment/Plan Assessment/plan: acute bilateral pneumonia, acute right middle lobe pneumonia, acute Haemophilus Beta lactamase positive bacteremia, acute sepsis, acute right anterior and posterior chest pain, cholelithiasis without cholecystitis, acute nausea vomiting and epigastric pain, moderate hiatal hernia with fluid distention of the distal thoracic esophagus, colonic diverticulosis: IV fluids, IV protonix, DVT prophylaxis, SCDs, physical therapy, incentive spirometer, oxygen 2L/min via nasal cannula, aspiration precautions, fall precautions, scheduled for EGD on Saturday.
[2020-01-03] MEDS: ENOXAPARIN NA (PORCINE) 40 MG/0.4 ML DISP.SYRIN SQ SCH (11:24)
[2020-01-03] MEDS: D5-1/2NS+20 MEQ KCL - 20 MEQ/1,000 ML INFUS.BAG IV SCH ×2 (11:34→18:40)
[2020-01-03] MEDS: NYSTATIN POWDER 100,000 UNITS/GM - 15 GM TOPICAL POWDER TP SCH ×2 (11:35→23:30)
[2020-01-03 12:30] LABS: ANISOCYTOSIS 1+; MACROCYTOSIS 0; PLATELET ESTIMATE NORMAL
--- NOTE | 2020-01-03 12:55 | PN ---
Progress Note, Physician History of Present Illness: pulmonary alert,oob-chair,comfortable,-sob - Current Medication List Current Medications: Active Medications Potassium Chloride/Dextrose/Sod Cl (D5-1/2ns+20 Meq Kcl -) 20 meq in 1,000 mls @ 75 mls/hr IV ASDIR [facility] Last Admin: 01/03/20 11:34 Dose: 75 mls/hr Insulin Aspart (Novolog Vial Sliding Scale -) 1 vial SQ TIDAC [facility]; Protocol Last Admin: 01/03/20 11:38 Dose: Not Given Nystatin (Nystop Powder -) 1 applic TP BID [facility] Last Admin: 01/03/20 11:35 Dose: 1 appful Pantoprazole Sodium (Protonix Iv) 40 mg IVPUSH DAILY [facility] Last Admin: 01/03/20 09:50 Dose: 40 mg Polyethylene Glycol (Miralax (For Daily Use) -) 17 gm PO DAILY [facility] Last Admin: 01/03/20 09:50 Dose: 17 gm - Objective Vital Signs: Vital Signs Temperature 98.4 F 01/03/20 08:59 Pulse Rate 78 01/03/20 08:59 Respiratory Rate 20 01/03/20 09:00 Blood Pressure 134/71 01/03/20 08:59 O2 Sat by Pulse Oximetry (%) 97 01/03/20 09:00 Constitutional: Yes: Well Nourished, Calm Eyes: Yes: WNL HENT: Yes: WNL Neck: Yes: WNL Cardiovascular: Yes: Regular Rate and Rhythm, S1, S2 Respiratory: Yes: Rales (shine crackles 1/3up) Gastrointestinal: Yes: Normal Bowel Sounds, Soft Extremities: Yes: WNL Edema: No Labs: CBC, BMP 01/03/20 07:55 01/03/20 07:55 Assessment/Plan Assessment/Plan Problem List - Problems (1) Influenza Code(s): J11.1 - FLU DUE TO UNIDENTIFIED INFLUENZA VIRUS W OTH RESP MANIFEST (2) Acute pneumonia Code(s): J18.9 - PNEUMONIA, UNSPECIFIED ORGANISM (3) Shortness of breath Code(s): R06.02 - SHORTNESS OF BREATH (4) Anemia Code(s): D64.9 - ANEMIA, UNSPECIFIED Qualifiers: Other causes of anemia: chronic disease, other (5) Back pain Code(s): M54.9 - DORSALGIA, UNSPECIFIED Qualifiers: Back pain location: low back pain Back pain laterality: bilateral (6) Chronic pain Code(s): G89.29 - OTHER CHRONIC PAIN (7) HTN (hypertension) Code(s): I10 - ESSENTIAL (PRIMARY) HYPERTENSION Qualifiers: Hypertension type: essential hypertension Qualified Code(s): I10 - Essential (primary) hypertension (8) Spinal stenosis Code(s): M48.00 - SPINAL STENOSIS, SITE UNSPECIFIED Qualifiers: Spinal region: lumbosacral Qualified Code(s): M48.07 - Spinal stenosis, lumbosacral region 9 BACTEREMIA Assessment/Plan O2 VTE prophylaxis Will need repeat imaging as an outpatient to ensure resolution of infiltrates in this immunocompromised host inhaled bronchodilators check o2 sat on ra no pulmonary contraindications for egd in am DR MOTA
[2020-01-03 13:16] LABS: INR 1.08 (0.83-1.09); PROTHROMBIN TIME (PATIENT) 12.7 SEC (9.7-13.0)
--- NOTE | 2020-01-03 13:22 | PN ---
Progress Note (short form) - Note Progress Note: No abdominal pain, no vomiting. Dr Uriarte's note appreciated - no cardiology contraindication to EGD. Discussed with Dr Kaiser who clears her from a pulmonary perspective. For EGD tomorrow.
--- NOTE | 2020-01-03 20:55 | CONSULT ---
Consult Consult Specialty:: Thoracic Surgery Referred by:: Alvin Walters Reason for Consultation:: Hiatal Hernia - History of Present Illness Chief Complaint: abdominal pain, Nausea and vomiting History of Present Illness: Patient Was seen on 01/01 in the late evening. 74yo F with HTN, RA on methotrexate and Enbrel, admitted 10 days ago with primarily respiratory issues found to have pneumonia and H. flu bacteremia , now improved on antibiotics. Over last couple days, when she eats, she has had associated N/V and epigastric pain, as well as mid back pain. On admission, she had pain around her right upper back. Because of that, she had US done previously, which showed gallstones but no evidence of cholecystitis. LFTs are normal, as well as lipase (yesterday). GI saw her yesterday, and abd/pelv CT was done as well. Thoracic Surgery was consulted. She is seen sitting up in chair and examined in chair and in bed. Son is at bedside and providing information as well for additional history and assistance with Bel[place]ian at times. They both report that the epigastric pain associated with N/V at meals has occurred on and off for about 2 years now. Patient says it is not every meal, she feels like food is sticking in her chest, and that she feels better after throwing up. She also has chronic constipation, and has gone several days currently without BM, despite enemas. She has had pain since yesterday, but pain has subsided and she is eating regular diet w/o pain and n/v. Patient had a CT chest during this admission which didn't show any hiatal hernia, but CT abdomen later revealed moderate hiatal harnia - History Source History Provided By: Patient, Family Member Limitations to Obtaining History: No Limitations - Past Medical History [employer]: Yes: Migraine Cardio/Vascular: Yes: HTN (pt states she does take med at home, does not know name) Pulmonary: Yes: Pneumonia. No: O2 Dependent Gastrointestinal: Yes: Constipation (chronic per daughter) Hepatobiliary: No: Cirrhosis, Cholelithiasis, Cholecystitis, Choledocholithiasis , Hepatitis A, Hepatitis B, Hepatitis C, Other Renal/: No: Renal Failure, Renal Inusuff, BPH, Cancer, Hematuria, Hemodialysis , Neurogenic Bladder, Renal Calculi, UTI, Other Infectious Disease: Yes: Other (GENITAL HSV) Psych: No: Addictions, Anxiety, Bipolar, Depression, Panic, Psychosis, Schizophrenia, Other Musculoskeletal: Yes: Chronic low back pain Rheumatology: Yes: Rheumatoid Arthritis ENT: No: Allergic Rhinitis, Sinusitis, Other Endocrine: No: Stewart's Disease, [place]'s Disease, Diabetes Insipidus, Diabetes Mellitus, Hyperparathyroidism, Hyperthyroidism, Hypothyroidism, Osteopenia, SIADH, Other Dermatology: No: Basal Cell, Cellulitis, Eczema, Melanoma, Psoriasis, Squamous Cell, Other - Past Surgical History Past Surgical History: Yes: Colonoscopy (2 yrs ago (Dr. Alvarez)), . No : Upper Endoscopy (never) Additional Surgical History: "tumor" (not cancer) removed from abdomen many years ago - Alcohol/Substance Use Hx Alcohol Use: No History of Substance Use: reports: None - Smoking History Smoking history: Never smoked Have you smoked in the past 12 months: No - Social History ADL: Independent Home Medications - Allergies Allergies/Adverse Reactions: Allergies Allergy/AdvReac Type Severity Reaction Status Date / Time No Known Drug Allergies Allergy Verified 12/21/19 22:06 - Home Medications Home Medications: Ambulatory Orders Etanercept [Enbrel Sureclick] 50 mg SQ ASDIR 12/22/19 Folic Acid 1 mg PO DAILY 12/22/19 Ibandronate Sodium [Boniva] 150 mg PO ASDIR 12/22/19 Methotrexate Sodium [Methotrexate] 2.5 mg PO ASDIR 12/22/19 Triamcinolone 0.5% Cream [Aristocort 0.5% Cream -] 1 applic TD BID 12/22/19 Family Medical History Family History: Denies Review of Systems - Review of Systems Constitutional: reports: No Symptoms Eyes: reports: No Symptoms HENT: reports: No Symptoms Neck: reports: No Symptoms Gastrointestinal: reports: Abdominal Pain, Constipation, Nausea, Vomiting Physical Exam Vital Signs: Vital Signs Temperature 98.6 F 01/03/20 18:00 Pulse Rate 84 01/03/20 18:00 Respiratory Rate 01/03/20 18:00 Blood Pressure 151/78 01/03/20 18:00 O2 Sat by Pulse Oximetry (%) 94 L 01/03/20 14:13 Constitutional: Yes: Well Nourished Eyes: Yes: WNL HENT: Yes: WNL, Atraumatic, Normocephalic Neck: Yes: WNL, Supple, Trachea Midline Cardiovascular: Yes: Regular Rate and Rhythm Respiratory: Yes: Regular Gastrointestinal: Yes: Normal Bowel Sounds, Soft Musculoskeletal: Yes: WNL Extremities: Yes: WNL Edema: No Labs: CBC, BMP 01/03/20 07:55 01/03/20 07:55 Imaging - Results Chest X-ray: Report Reviewed X-ray: Report Reviewed Cat Scan: Report Reviewed Problem List - Problems (1) Hiatal hernia Code(s): K44.9 - DIAPHRAGMATIC HERNIA WITHOUT OBSTRUCTION OR GANGRENE (2) Acute pneumonia Code(s): J18.9 - PNEUMONIA, UNSPECIFIED ORGANISM (3) Acute respiratory failure Code(s): J96.00 - ACUTE RESPIRATORY FAILURE, UNSP W HYPOXIA OR HYPERCAPNIA (4) Acute sepsis Code(s): A41.9 - SEPSIS, UNSPECIFIED ORGANISM (5) Bacteremia due to Gram-negative bacteria Code(s): R78.81 - BACTEREMIA (6) Bacteremia due to other bacteria Code(s): R78.81 - BACTEREMIA; B96.89 - OTH BACTERIAL AGENTS THE CAUSE OF DISEASES CLASSD [id number] (7) Calculus of gallbladder without cholangitis or cholecystitis Code(s): K80.20 - CALCULUS OF GALLBLADDER W/O CHOLECYSTITIS W/O OBSTRUCTION Assessment/Plan 74 y/o F was admitted to the hospital for pneumonia and receiving abx. She was complaining of epigastric pain and Ct abdomen revealed a moderate size hiatal hernia. At the time of physical examination, she denies any pain or discomfort or dysphagia on regular diet. CT chest on 12/22 didn't reveal any hiatal hernia, but it was shown on ct abdomen later on 12/30 indicating sliding nature of this hiatal hernia. Patient and her son were informed about the nature of the disease, and they were encouraged to follow up as outpatient for work up. My contact information with office number was provided to patient and her son Thank you for courtesy of this referral.
[2020-01-04] MEDS: D5-1/2NS+20 MEQ KCL - 20 MEQ/1,000 ML INFUS.BAG IV SCH ×2 (02:43→18:31)
[2020-01-04] MEDS: INSULIN SLIDING SCALE (NOVOLOG) 1 VIAL SQ SCH ×3 (06:01→17:07)
[2020-01-04] MEDS: NYSTATIN POWDER 100,000 UNITS/GM - 15 GM TOPICAL POWDER TP SCH ×2 (09:15→22:26)
--- NOTE | 2020-01-04 10:41 | PN ---
Progress Note, Physician Chief Complaint: Patient seen and examined at the bedside, no acute events from last night. History of Present Illness: This 74 yr old female with hx of rheumatoid arthritis, and HTN admitted via ER with an acutely severe dyspnea and tachypnea, acute bilateral pneumonia, acute right middle lobe pneumonia, acute Haemophilus Beta lactamase positive bacteremia, and acute right lower anterior and posterior chest pain. Ultrasound revealed cholelithiasis. CT scan of abdomen revealed colonic diverticulosis and a moderate sliding hiatal hernia with fluid distention at the distal thoracic esophagus. - Current Medication List Current Medications: Active Medications Potassium Chloride/Dextrose/Sod Cl (D5-1/2ns+20 Meq Kcl -) 20 meq in 1,000 mls @ 75 mls/hr IV ASDIR [facility] Last Admin: 01/04/20 02:43 Dose: 75 mls/hr Insulin Aspart (Novolog Vial Sliding Scale -) 1 vial SQ TIDAC [facility]; Protocol Last Admin: 01/04/20 06:01 Dose: Not Given Nystatin (Nystop Powder -) 1 applic TP BID [facility] Last Admin: 01/03/20 23:30 Dose: 1 appful Pantoprazole Sodium (Protonix Iv) 40 mg IVPUSH DAILY [facility] Last Admin: 01/03/20 09:50 Dose: 40 mg Polyethylene Glycol (Miralax (For Daily Use) -) 17 gm PO DAILY [facility] Last Admin: 01/03/20 09:50 Dose: 17 gm - Objective Vital Signs: Vital Signs Temperature 98.2 F 01/04/20 06:00 Pulse Rate 69 01/04/20 06:00 Respiratory Rate 20 01/04/20 06:00 Blood Pressure 129/62 01/04/20 06:00 O2 Sat by Pulse Oximetry (%) 94 L 01/03/20 21:00 Constitutional: Yes: Well Nourished, No Distress, Calm Eyes: Yes: Conjunctiva Clear, EOM Intact HENT: Yes: Atraumatic, Normocephalic Neck: Yes: Supple, Trachea Midline Cardiovascular: Yes: Regular Rate and Rhythm Respiratory: Yes: Regular, CTA Bilaterally Gastrointestinal: Yes: Normal Bowel Sounds, Soft ...Rectal Exam: Yes: Deferred Genitourinary: Yes: WNL Breast(s): Yes: WNL Musculoskeletal: Yes: WNL Edema: No Peripheral Pulses WNL: Yes Peripheral Pulses: Left Radial: 2+, Right Radial: 2+ Integumentary: Yes: WNL Neurological: Yes: WNL ...Motor Strength: WNL Psychiatric: Yes: WNL Labs: CBC, BMP 01/03/20 07:55 01/03/20 07:55 INR, PTT INR 1.08 (0.83-1.09) 01/03/20 12:42 - ....Imaging Other: Report Reviewed (Lab data reviewed) Problem List - Problems (1) NSTEMI (non-ST elevated myocardial infarction) Code(s): I21.4 - NON-ST ELEVATION (NSTEMI) MYOCARDIAL INFARCTION (2) Shortness of breath Code(s): R06.02 - SHORTNESS OF BREATH (3) Anemia Code(s): D64.9 - ANEMIA, UNSPECIFIED Qualifiers: Other causes of anemia: chronic disease, other (4) Back pain Code(s): M54.9 - DORSALGIA, UNSPECIFIED Qualifiers: Back pain location: low back pain Back pain laterality: bilateral (5) Chronic pain Code(s): G89.29 - OTHER CHRONIC PAIN (6) HTN (hypertension) Code(s): I10 - ESSENTIAL (PRIMARY) HYPERTENSION Qualifiers: Hypertension type: essential hypertension Qualified Code(s): I10 - Essential (primary) hypertension (7) Acute sepsis Code(s): A41.9 - SEPSIS, UNSPECIFIED ORGANISM (8) Acute pneumonia Code(s): J18.9 - PNEUMONIA, UNSPECIFIED ORGANISM (9) Acute respiratory failure Code(s): J96.00 - ACUTE RESPIRATORY FAILURE, UNSP W HYPOXIA OR HYPERCAPNIA (10) Neutrophilic leukocytosis Code(s): D72.9 - DISORDER OF WHITE BLOOD CELLS, UNSPECIFIED (11) Chest pain Code(s): R07.9 - CHEST PAIN, UNSPECIFIED (12) Cholelithiasis Code(s): K80.20 - CALCULUS OF GALLBLADDER W/O CHOLECYSTITIS W/O OBSTRUCTION (13) Haemophilus infection Code(s): A49.2 - HEMOPHILUS INFLUENZAE INFECTION, UNSPECIFIED SITE (14) Bacteremia due to Gram-negative bacteria Code(s): R78.81 - BACTEREMIA (15) RUQ abdominal pain Code(s): R10.11 - RIGHT UPPER QUADRANT PAIN (16) History of immunocompromised state Code(s): Z86.2 - PRSNL HISTORY OF DIS OF THE BLD/BLD-FORM ORG/IMMUN MECHN (17) Influenza Code(s): J11.1 - FLU DUE TO UNIDENTIFIED INFLUENZA VIRUS W OTH RESP MANIFEST (18) Epigastric abdominal pain Code(s): R10.13 - EPIGASTRIC PAIN (19) Nausea & vomiting Code(s): R11.2 - NAUSEA WITH VOMITING, UNSPECIFIED Qualifiers: Vomiting type: bilious vomiting Qualified Code(s): R11.14 - Bilious vomiting (20) Constipation Code(s): K59.00 - CONSTIPATION, UNSPECIFIED Assessment/Plan Assessment/plan: acute bilateral pneumonia, acute right middle lobe pneumonia, acutely severe dyspnea and tachypnea, acute right lower anterior and posterior chest pain, acute moderate hiatal hernia with fluid distention at distal thoracic esophagus, colonic diverticulosis; IV fluids, IV Protonix, sliding scale regular insulin coverage, DVT prophylaxis, SCDs, physical therapy, fall precautions, aspiration precautions, barium swallow was normal except for degenerative changes of cervical, thoracic, and lumbosacral spine, scheduled for upper endoscopy.
[2020-01-04] MEDS ORDERED: PT OWN MED DRAWER 7, Y5N ONE (11:26)
[2020-01-04] MEDS: PANTOPRAZOLE SODIUM 40 MG VIAL IVPUSH SCH (11:30)
[2020-01-04] MEDS: POLYETHYLENE GLYCOL 3350 119 GM BTL PO SCH (11:52)
--- NOTE | 2020-01-04 15:45 | PN ---
Progress Note (short form) - Note Progress Note: s: no chest pain, palps, dizziness, dyspnea. Current Medications Potassium Chloride/Dextrose/Sod Cl (D5-1/2ns+20 Meq Kcl -) 20 meq in 1,000 mls @ 75 mls/hr IV ASDIR [facility] Last Admin: 01/04/20 02:43 Dose: 75 mls/hr Insulin Aspart (Novolog Vial Sliding Scale -) 1 vial SQ TIDAC [facility]; Protocol Last Admin: 01/04/20 12:18 Dose: Not Given Nystatin (Nystop Powder -) 1 applic TP BID [facility] Last Admin: 01/04/20 09:15 Dose: 1 appful Pantoprazole Sodium (Protonix Iv) 40 mg IVPUSH DAILY [facility] Last Admin: 01/04/20 11:30 Dose: 40 mg Polyethylene Glycol (Miralax (For Daily Use) -) 17 gm PO DAILY [facility] Last Admin: 01/04/20 11:52 Dose: 17 gm Vital Signs Period Temp Pulse Resp BP Sys/Anand Pulse Ox Last 24 Hr 98.2 F-98.6 F 69-84 20-20 129-151/62-78 94 Constitutional: Yes: No Distress Eyes: Yes: Conjunctiva Clear, EOM Intact Cardiovascular: Yes: Regular Rate and Rhythm Respiratory: Yes: Rhonchi, Other (diffuse mild rhonchi with decreased basilar breath sounds, no active wheezing) Gastrointestinal: Yes: Soft, Abdomen, Obese Edema: No Neurological: Yes: Alert, Oriented no jaundice, diaphoresis not agitated Assessment/Plan EKG:sinus tach, no ischemic changes CT chest: shine pneumonic infiltrates, mild bronchiectatic changes in lower lobes , cannot exclude congestion or chronic ILD elevated trop - EKG no ischemic changes - flat trend, indeterminate range, likely demand in setting of PNA, no signs acs - echo with nl lvef, no sig valve abnormalities - recommend nuclear stress when recovers, can be done as outpatient PNA, flu: - abx complete, ID following HTN: - cont home meds anemia: - manage per primary NSVT - nl EF here - replete lytes for K>4, Mg>2 abd pain - workup per GI - no cardiac contraindications to egd
--- NOTE | 2020-01-05 04:49 | PN ---
Progress Note, Physician Chief Complaint: Patient seen and examined at the bedside, no acute events from last night, no nausea vomiting or abdominal pain, eat small portions. History of Present Illness: This 74 yr old female with hx of rheumatoid arthritis, and HTN admitted via ER with an acutely severe dyspnea and tachypnea, acute bilateral pneumonia, acute right middle lobe pneumonia, acute Haemophilus Beta lactamase positive bacteremia, acute sepsis, and acute right lower anterior and posterior chest pain. Ultrasound revealed cholelithiasis. CT scan of abdomen revealed moderate sliding hiatal hernia with fluid distention of the distal thoracic esophagus. - Current Medication List Current Medications: Active Medications Potassium Chloride/Dextrose/Sod Cl (D5-1/2ns+20 Meq Kcl -) 20 meq in 1,000 mls @ 75 mls/hr IV ASDIR [facility] Last Admin: 01/04/20 18:31 Dose: 75 mls/hr Insulin Aspart (Novolog Vial Sliding Scale -) 1 vial SQ TIDAC [facility]; Protocol Last Admin: 01/04/20 17:07 Dose: Not Given Nystatin (Nystop Powder -) 1 applic TP BID [facility] Last Admin: 01/04/20 22:26 Dose: 1 appful Pantoprazole Sodium (Protonix Iv) 40 mg IVPUSH DAILY [facility] Last Admin: 01/04/20 11:30 Dose: 40 mg Polyethylene Glycol (Miralax (For Daily Use) -) 17 gm PO DAILY [facility] Last Admin: 01/04/20 11:52 Dose: 17 gm - Objective Vital Signs: Vital Signs Temperature 98.2 F 01/05/20 02:00 Pulse Rate 75 01/05/20 02:00 Respiratory Rate 20 01/05/20 02:00 Blood Pressure 138/73 01/05/20 02:00 O2 Sat by Pulse Oximetry (%) 96 01/04/20 21:00 Constitutional: Yes: Well Nourished, No Distress, Calm Eyes: Yes: Conjunctiva Clear, EOM Intact HENT: Yes: Atraumatic, Normocephalic Neck: Yes: Supple, Trachea Midline Cardiovascular: Yes: Regular Rate and Rhythm Respiratory: Yes: Regular, CTA Bilaterally Gastrointestinal: Yes: Normal Bowel Sounds, Soft ...Rectal Exam: Yes: Deferred Genitourinary: Yes: WNL Breast(s): Yes: WNL Musculoskeletal: Yes: WNL Extremities: Yes: WNL Edema: No Peripheral Pulses WNL: Yes Integumentary: Yes: WNL Neurological: Yes: WNL ...Motor Strength: WNL Psychiatric: Yes: WNL Labs: CBC, BMP 01/03/20 07:55 01/03/20 07:55 INR, PTT INR 1.08 (0.83-1.09) 01/03/20 12:42 Problem List - Problems (1) NSTEMI (non-ST elevated myocardial infarction) Code(s): I21.4 - NON-ST ELEVATION (NSTEMI) MYOCARDIAL INFARCTION (2) Shortness of breath Code(s): R06.02 - SHORTNESS OF BREATH (3) Anemia Code(s): D64.9 - ANEMIA, UNSPECIFIED Qualifiers: Other causes of anemia: chronic disease, other (4) Back pain Code(s): M54.9 - DORSALGIA, UNSPECIFIED Qualifiers: Back pain location: low back pain Back pain laterality: bilateral (5) Chronic pain Code(s): G89.29 - OTHER CHRONIC PAIN (6) HTN (hypertension) Code(s): I10 - ESSENTIAL (PRIMARY) HYPERTENSION Qualifiers: Hypertension type: essential hypertension Qualified Code(s): I10 - Essential (primary) hypertension (7) Acute sepsis Code(s): A41.9 - SEPSIS, UNSPECIFIED ORGANISM (8) Acute pneumonia Code(s): J18.9 - PNEUMONIA, UNSPECIFIED ORGANISM (9) Acute respiratory failure Code(s): J96.00 - ACUTE RESPIRATORY FAILURE, UNSP W HYPOXIA OR HYPERCAPNIA (10) Neutrophilic leukocytosis Code(s): D72.9 - DISORDER OF WHITE BLOOD CELLS, UNSPECIFIED (11) Chest pain Code(s): R07.9 - CHEST PAIN, UNSPECIFIED (12) Cholelithiasis Code(s): K80.20 - CALCULUS OF GALLBLADDER W/O CHOLECYSTITIS W/O OBSTRUCTION (13) Haemophilus infection Code(s): A49.2 - HEMOPHILUS INFLUENZAE INFECTION, UNSPECIFIED SITE (14) Bacteremia due to Gram-negative bacteria Code(s): R78.81 - BACTEREMIA (15) RUQ abdominal pain Code(s): R10.11 - RIGHT UPPER QUADRANT PAIN (16) History of immunocompromised state Code(s): Z86.2 - PRSNL HISTORY OF DIS OF THE BLD/BLD-FORM ORG/IMMUN MECHNSM (17) Influenza Code(s): J11.1 - FLU DUE TO UNIDENTIFIED INFLUENZA VIRUS W OTH RESP MANIFEST (18) Epigastric abdominal pain Code(s): R10.13 - EPIGASTRIC PAIN (19) Nausea & vomiting Code(s): R11.2 - NAUSEA WITH VOMITING, UNSPECIFIED Qualifiers: Vomiting type: bilious vomiting Qualified Code(s): R11.14 - Bilious vomiting (20) Constipation Code(s): K59.00 - CONSTIPATION, UNSPECIFIED Assessment/Plan Assessment/plan: acute bilateral pneumonia, acute right middle lobe pneumonia, acute Haemophilus Beta lactamase positive bacteremia, acute sepsis, acutely severe dyspnea and tachypnea, acute right sided lower anterior and posterior chest pain, cholelithiasis, acute moderate sliding hiatal hernia with fluid distention at distal thoracic esophagus, colonic diverticulosis. D/c IV fluids , d/c IV Pantoprazole, DVT prophylaxis, physical therapy, to be scheduled for upper endoscopy. Patient will need a hospital bed in her home. Patient requires head of the bed to be elevated at least 30 degrees to prevent aspiration. Patient also requires frequent repositioning not feasible in regular bed.
[2020-01-05] MEDS: INSULIN SLIDING SCALE (NOVOLOG) 1 VIAL SQ SCH ×3 (06:54→17:04)
[2020-01-05 09:06] LABS: BASO % 1.4 % (0-2.0); EOS % 8.1 % (0-4.5); HEMATOCRIT 29.2 % (32.4-45.2); LYMPH % 34.6 % (8-40); MCH 25.1 pg (25.7-33.7); MCHC 30.8 g/dl (32.0-36.0); MEAN CELL VOLUME 81.6 fl (80-96); MONO % 7.6 % (3.8-10.2); NEUT % 48.3 % (42.8-82.8); PLATELET COUNT 465 K/MM3 (134-434); RBC 3.58 M/mm3 (3.60-5.2); WHITE BLOOD COUNT 5.2 K/mm3 (4.0-10.0)
[2020-01-05 09:26] LABS: BLOOD UREA NITROGEN 5.7 mg/dL (7-18); CALCIUM 8.4 mg/dL (8.5-10.1); CREATININE 0.7 mg/dL (0.55-1.3); POTASSIUM 4.5 mmol/L (3.5-5.1)
[2020-01-05] MEDS: PANTOPRAZOLE 40 MG TABLET PO SCH (09:33)
[2020-01-05] MEDS: POLYETHYLENE GLYCOL 3350 119 GM BTL PO SCH (09:33)
[2020-01-05 10:20] LABS: ANISOCYTOSIS 3+; MACROCYTOSIS 1+; OVALOCYTE 1+; PLATELET ESTIMATE INCREASED; TEAR DROP CELLS 1+
[2020-01-05] MEDS: NYSTATIN POWDER 100,000 UNITS/GM - 15 GM TOPICAL POWDER TP SCH ×2 (12:01→22:45)
--- NOTE | 2020-01-05 12:54 | PN ---
Progress Note (short form) - Note Progress Note: s: no chest pain, palps, dizziness, dyspnea. Current Medications Insulin Aspart (Novolog Vial Sliding Scale -) 1 vial SQ TIDAC [facility]; Protocol Last Admin: 01/05/20 12:04 Dose: Not Given Nystatin (Nystop Powder -) 1 applic TP BID [facility] Last Admin: 01/05/20 12:01 Dose: 1 appful Pantoprazole Sodium (Protonix -) 40 mg PO DAILY [facility] Last Admin: 01/05/20 09:33 Dose: 40 mg Polyethylene Glycol (Miralax (For Daily Use) -) 17 gm PO DAILY [facility] Last Admin: 01/05/20 09:33 Dose: 17 gm Vital Signs Period Temp Pulse Resp BP Sys/Anand Pulse Ox Last 24 Hr 97.6 F-99.2 F 75-85 18-20 94-148/48-78 96 Constitutional: Yes: No Distress Eyes: Yes: Conjunctiva Clear, EOM Intact Cardiovascular: Yes: Regular Rate and Rhythm Respiratory: Yes: Rhonchi, Other (diffuse mild rhonchi with decreased basilar breath sounds, no active wheezing) Gastrointestinal: Yes: Soft, Abdomen, Obese Edema: No Neurological: Yes: Alert, Oriented no jaundice, diaphoresis not agitated Assessment/Plan EKG:sinus tach, no ischemic changes CT chest: shine pneumonic infiltrates, mild bronchiectatic changes in lower lobes , cannot exclude congestion or chronic ILD elevated trop - EKG no ischemic changes - flat trend, indeterminate range, likely demand in setting of PNA, no signs acs - echo with nl lvef, no sig valve abnormalities - recommend nuclear stress when recovers, can be done as outpatient PNA, flu: - abx complete, ID following HTN: - cont home meds anemia: - manage per primary NSVT - nl EF here - replete lytes for K>4, Mg>2 abd pain - workup per GI - no cardiac contraindications to egd if needed
--- NOTE | 2020-01-05 15:59 | PN.GI ---
GI Progress Note Subjective: No acute events Patient was taken for esophagram instead of EGD on saturday. It was unrevealing. It failed to reveal i significant hiatal hernia She denies any focal GI complaints - Objective Vital Signs: Vital Signs Temperature 98.8 F 01/05/20 14:00 Pulse Rate 78 01/05/20 14:00 Respiratory Rate 18 01/05/20 14:00 Blood Pressure 117/59 L 01/05/20 14:00 O2 Sat by Pulse Oximetry (%) 96 01/04/20 21:00 Constitutional: Calm Eyes: No: Sclera Icterus Cardiovascular: Yes: Regular Rate and Rhythm. No: Murmur Respiratory: Yes: CTA Bilaterally Gastrointestinal Inspection: No: Distention ...Auscultate: Yes: Normoactive Bowel Sounds ...Palpate: Yes: Soft. No: Hepatomegaly, Splenomegaly, Tenderness Labs: CBC, BMP 01/05/20 07:00 01/05/20 07:00 INR, PTT INR 1.08 (0.83-1.09) 01/03/20 12:42 Problem List - Problems (1) Epigastric abdominal pain Assessment/Plan: UGIS unremarkable. In setting of previously abnormal CT scan results and anemia , will proceed with upper endoscopy 01/06 for completion of evaluation of the upper GI tract. Discussed with patient and consent previously obtained. NPO after mednight except meds. Code(s): R10.13 - EPIGASTRIC PAIN
[2020-01-05] MEDS ORDERED: D5-1/2NS+20 MEQ KCL - 20 MEQ/1,000 ML INFUS.BAG IV SCH (18:45)
[2020-01-05] MEDS ORDERED: INSULIN (NOVOLOG) ASPART 100 UNITS/ML 10ML VIAL ONE (21:17)
[2020-01-06] MEDS: INSULIN SLIDING SCALE (NOVOLOG) 1 VIAL SQ SCH ×2 (06:28→12:47)
--- NOTE | 2020-01-06 09:18 | PN ---
Progress Note, Physician Chief Complaint: Patient seen and examined at the bedside, no acute events from last night, tolerating meals well. History of Present Illness: This 74 yr old female with hx of rheumatoid arthritis and HTN admitted via ER with an acutely severe dyspnea and tachypnea, acute bilateral pneumonia, acute right middle lobe pneumonia, acute Haemophilus Beta lactamase positive bacteremia, and an acute right anterior and posterior lower chest pain. - Current Medication List Current Medications: Active Medications Potassium Chloride/Dextrose/Sod Cl (D5-1/2ns+20 Meq Kcl -) 20 meq in 1,000 mls @ 50 mls/hr IV ASDIR [facility] Last Admin: 01/05/20 18:45 Dose: 50 mls/hr Insulin Aspart (Novolog Vial Sliding Scale -) 1 vial SQ TIDAC [facility]; Protocol Last Admin: 01/06/20 06:28 Dose: Not Given Nystatin (Nystop Powder -) 1 applic TP BID [facility] Last Admin: 01/05/20 22:45 Dose: 1 appful Pantoprazole Sodium (Protonix -) 40 mg PO DAILY [facility] Last Admin: 01/05/20 09:33 Dose: 40 mg Polyethylene Glycol (Miralax (For Daily Use) -) 17 gm PO DAILY [facility] Last Admin: 01/05/20 09:33 Dose: 17 gm - Objective Vital Signs: Vital Signs Temperature 98.6 F 01/06/20 06:00 Pulse Rate 76 01/06/20 06:00 Respiratory Rate 18 01/06/20 06:00 Blood Pressure 136/66 01/06/20 06:00 O2 Sat by Pulse Oximetry (%) 94 L 01/06/20 05:30 Constitutional: Yes: Well Nourished, No Distress, Calm Eyes: Yes: Conjunctiva Clear, EOM Intact HENT: Yes: Atraumatic, Normocephalic Neck: Yes: Supple, Trachea Midline Cardiovascular: Yes: Regular Rate and Rhythm Respiratory: Yes: Regular, CTA Bilaterally Gastrointestinal: Yes: Normal Bowel Sounds, Soft, Hernia (hiatal hernia) ...Rectal Exam: Yes: Deferred Genitourinary: Yes: WNL Breast(s): Yes: WNL Musculoskeletal: Yes: WNL Extremities: Yes: WNL Edema: No Peripheral Pulses WNL: Yes Peripheral Pulses: Left Radial: 2+, Right Radial: 2+ Integumentary: Yes: WNL Neurological: Yes: WNL ...Motor Strength: WNL Psychiatric: Yes: WNL Labs: CBC, BMP 01/05/20 07:00 01/05/20 07:00 INR, PTT INR 1.08 (0.83-1.09) 01/03/20 12:42 Problem List - Problems (1) NSTEMI (non-ST elevated myocardial infarction) Code(s): I21.4 - NON-ST ELEVATION (NSTEMI) MYOCARDIAL INFARCTION (2) Shortness of breath Code(s): R06.02 - SHORTNESS OF BREATH (3) Anemia Code(s): D64.9 - ANEMIA, UNSPECIFIED Qualifiers: Other causes of anemia: chronic disease, other (4) Back pain Code(s): M54.9 - DORSALGIA, UNSPECIFIED Qualifiers: Back pain location: low back pain Back pain laterality: bilateral (5) Chronic pain Code(s): G89.29 - OTHER CHRONIC PAIN (6) HTN (hypertension) Code(s): I10 - ESSENTIAL (PRIMARY) HYPERTENSION Qualifiers: Hypertension type: essential hypertension Qualified Code(s): I10 - Essential (primary) hypertension (7) Acute sepsis Code(s): A41.9 - SEPSIS, UNSPECIFIED ORGANISM (8) Acute pneumonia Code(s): J18.9 - PNEUMONIA, UNSPECIFIED ORGANISM (9) Acute respiratory failure Code(s): J96.00 - ACUTE RESPIRATORY FAILURE, UNSP W HYPOXIA OR HYPERCAPNIA (10) Neutrophilic leukocytosis Code(s): D72.9 - DISORDER OF WHITE BLOOD CELLS, UNSPECIFIED (11) Chest pain Code(s): R07.9 - CHEST PAIN, UNSPECIFIED (12) Cholelithiasis Code(s): K80.20 - CALCULUS OF GALLBLADDER W/O CHOLECYSTITIS W/O OBSTRUCTION (13) Haemophilus infection Code(s): A49.2 - HEMOPHILUS INFLUENZAE INFECTION, UNSPECIFIED SITE (14) Bacteremia due to Gram-negative bacteria Code(s): R78.81 - BACTEREMIA (15) RUQ abdominal pain Code(s): R10.11 - RIGHT UPPER QUADRANT PAIN (16) History of immunocompromised state Code(s): Z86.2 - PRSNL HISTORY OF DIS OF THE BLD/BLD-FORM ORG/IMMUN MECHNSM (17) Influenza Code(s): J11.1 - FLU DUE TO UNIDENTIFIED INFLUENZA VIRUS W OTH RESP MANIFEST (18) Epigastric abdominal pain Code(s): R10.13 - EPIGASTRIC PAIN (19) Nausea & vomiting Code(s): R11.2 - NAUSEA WITH VOMITING, UNSPECIFIED Qualifiers: Vomiting type: bilious vomiting Qualified Code(s): R11.14 - Bilious vomiting (20) Constipation Code(s): K59.00 - CONSTIPATION, UNSPECIFIED Assessment/Plan Assessment/plan: acute bilateral pneumonia, acute right middle lobe pneumonia, acute Haemophilus Beta Lactamase positive bacteremia, acute moderate sliding hiatal hernia, acutely severe dyspnea and tachypnea, acute nausea vomiting and epigastric pain after eating; NPO, IV fluids, oral Protonix, sliding scale insulin coverage, scheduled for upper endoscopy today.
[2020-01-06] MEDS: POLYETHYLENE GLYCOL 3350 119 GM BTL PO SCH (09:53)
[2020-01-06] MEDS: PANTOPRAZOLE 40 MG TABLET PO SCH ×2 (09:53→14:15)
[2020-01-06] MEDS: NYSTATIN POWDER 100,000 UNITS/GM - 15 GM TOPICAL POWDER TP SCH ×2 (10:20→23:04)
--- NOTE | 2020-01-06 12:23 | PN ---
Progress Note (short form) - Note Progress Note: EGD performed. 2 cm HH. Otherwise normal esophagus. Normal stomach. Normal duodenal bulb and D2. OK to return to regular diet.
--- NOTE | 2020-01-06 14:43 | PN ---
Progress Note (short form) - Note Progress Note: s: no chest pain, palps, dizziness, dyspnea. Current Medications Generic Name Dose Route Start Last Admin Trade Name Ajay PRN Reason Stop Dose Admin Potassium Chloride/Dextrose/Sod Cl 20 meq in 1,000 mls @ 50 mls/hr 01/05/20 18 :45 01/05/20 18:45 D5-1/2ns+20 Meq Kcl - IV 50 mls/hr ASDIR [facility]ANI Administration Insulin Aspart 1 vial 12/30/19 07:00 01/06/20 12:47 Novolog Vial Sliding Scale - SQ Not Given TIDAC [facility]ANI Protocol Nystatin 1 applic 01/01/20 10:00 01/06/20 10:20 Nystop Powder - TP 1 applic BID [facility] Administration Pantoprazole Sodium 40 mg 01/05/20 10:00 01/06/20 14:15 Protonix - PO 40 mg DAILY [facility] Administration Polyethylene Glycol 17 gm 12/30/19 10:15 01/06/20 09:53 Miralax (For Daily Use) - PO Not Given DAILY [facility] Vital Signs Period Temp Pulse Resp BP Sys/Anand Pulse Ox Last 24 Hr 97.7 F-99.2 F 68-88 18-24 123-152/61-84 94-100 Constitutional: Yes: No Distress Eyes: Yes: Conjunctiva Clear, EOM Intact Cardiovascular: Yes: Regular Rate and Rhythm Respiratory: Yes: Rhonchi, Other (diffuse mild rhonchi with decreased basilar breath sounds, no active wheezing) Gastrointestinal: Yes: Soft, Abdomen, Obese Edema: No Neurological: Yes: Alert, Oriented no jaundice, diaphoresis not agitated CBC, BMP 01/05/20 07:00 01/05/20 07:00 Assessment/Plan EKG:sinus tach, no ischemic changes CT chest: shine pneumonic infiltrates, mild bronchiectatic changes in lower lobes , cannot exclude congestion or chronic ILD elevated trop - EKG no ischemic changes - flat trend, indeterminate range, likely demand in setting of PNA, no signs acs - echo with nl lvef, no sig valve abnormalities - recommend nuclear stress when recovers, can be done as outpatient PNA, flu: - abx complete, ID following HTN: - cont home meds anemia: - manage per primary NSVT - nl EF here - replete lytes for K>4, Mg>2 abd pain - workup per GI, s/p egd
--- NOTE | 2020-01-07 09:20 | PN ---
Progress Note, Physician Chief Complaint: Patient seen and examined at the bedside, no acute events from last night. History of Present Illness: This 74 yr old female with PMH of rheumatoid arthritis, and HTN admitted via ER with an acute bilateral pneumonia, acute right middle lobe pneumonia, acute Haemophilus beta lactamase positive bacteremia, acute sepsis, and acute right sided lower anterior and posterior chest pain. Ultrasound was done and revealed cholelithiasis without cholecystitis. CT scan of abdomen was done and revealed a moderate hiatal hernia with fluid distention a distal thoracic esophagus. - Current Medication List Current Medications: Active Medications Nystatin (Nystop Powder -) 1 applic TP BID [facility] Last Admin: 01/06/20 23:04 Dose: 1 applic Pantoprazole Sodium (Protonix -) 40 mg PO DAILY [facility] Last Admin: 01/06/20 14:15 Dose: 40 mg Polyethylene Glycol (Miralax (For Daily Use) -) 17 gm PO DAILY [facility] Last Admin: 01/06/20 09:53 Dose: Not Given - Objective Vital Signs: Vital Signs Temperature 98.3 F 01/07/20 07:07 Pulse Rate 71 01/07/20 07:07 Respiratory Rate 18 01/07/20 07:07 Blood Pressure 143/61 01/07/20 07:07 O2 Sat by Pulse Oximetry (%) 96 01/06/20 12:51 Constitutional: Yes: Well Nourished, No Distress, Calm Eyes: Yes: Conjunctiva Clear, EOM Intact HENT: Yes: Atraumatic, Normocephalic Neck: Yes: Supple, Trachea Midline Cardiovascular: Yes: Regular Rate and Rhythm Respiratory: Yes: Regular, CTA Bilaterally Gastrointestinal: Yes: Normal Bowel Sounds, Soft ...Rectal Exam: Yes: Deferred Genitourinary: Yes: WNL Breast(s): Yes: WNL Musculoskeletal: Yes: WNL Extremities: Yes: WNL Edema: No Peripheral Pulses WNL: Yes Integumentary: Yes: WNL Neurological: Yes: WNL ...Motor Strength: WNL Psychiatric: Yes: WNL Labs: CBC, BMP 01/05/20 07:00 01/05/20 07:00 INR, PTT INR 1.08 (0.83-1.09) 01/03/20 12:42 Problem List - Problems (1) NSTEMI (non-ST elevated myocardial infarction) Code(s): I21.4 - NON-ST ELEVATION (NSTEMI) MYOCARDIAL INFARCTION (2) Shortness of breath Code(s): R06.02 - SHORTNESS OF BREATH (3) Anemia Code(s): D64.9 - ANEMIA, UNSPECIFIED Qualifiers: Other causes of anemia: chronic disease, other (4) Back pain Code(s): M54.9 - DORSALGIA, UNSPECIFIED Qualifiers: Back pain location: low back pain Back pain laterality: bilateral (5) Chronic pain Code(s): G89.29 - OTHER CHRONIC PAIN (6) HTN (hypertension) Code(s): I10 - ESSENTIAL (PRIMARY) HYPERTENSION Qualifiers: Hypertension type: essential hypertension Qualified Code(s): I10 - Essential (primary) hypertension (7) Acute sepsis Code(s): A41.9 - SEPSIS, UNSPECIFIED ORGANISM (8) Acute pneumonia Code(s): J18.9 - PNEUMONIA, UNSPECIFIED ORGANISM (9) Acute respiratory failure Code(s): J96.00 - ACUTE RESPIRATORY FAILURE, UNSP W HYPOXIA OR HYPERCAPNIA (10) Neutrophilic leukocytosis Code(s): D72.9 - DISORDER OF WHITE BLOOD CELLS, UNSPECIFIED (11) Chest pain Code(s): R07.9 - CHEST PAIN, UNSPECIFIED (12) Cholelithiasis Code(s): K80.20 - CALCULUS OF GALLBLADDER W/O CHOLECYSTITIS W/O OBSTRUCTION (13) Haemophilus infection Code(s): A49.2 - HEMOPHILUS INFLUENZAE INFECTION, UNSPECIFIED SITE (14) Bacteremia due to Gram-negative bacteria Code(s): R78.81 - BACTEREMIA (15) RUQ abdominal pain Code(s): R10.11 - RIGHT UPPER QUADRANT PAIN (16) History of immunocompromised state Code(s): Z86.2 - PRSNL HISTORY OF DIS OF THE BLD/BLD-FORM ORG/IMMUN MECHNSM (17) Influenza Code(s): J11.1 - FLU DUE TO UNIDENTIFIED INFLUENZA VIRUS W OTH RESP MANIFEST (18) Epigastric abdominal pain Code(s): R10.13 - EPIGASTRIC PAIN (19) Nausea & vomiting Code(s): R11.2 - NAUSEA WITH VOMITING, UNSPECIFIED Qualifiers: Vomiting type: bilious vomiting Qualified Code(s): R11.14 - Bilious vomiting (20) Constipation Code(s): K59.00 - CONSTIPATION, UNSPECIFIED Assessment/Plan Assessment/plan: acute bilateral pneumonia, acute right middle lobe pneumonia, acute Haemophilus beta lactamase bacteremia, acute hiatal hernia, acute nausea vomiting and epigastric pain after eating, cholelithiasis, colonic diverticulosis; s/p upper endoscopy done on 06/05/20 revealed 2 cm hiatal hernia , discharge planning, licensed clinical social worker request.
[2020-01-07] MEDS: PANTOPRAZOLE 40 MG TABLET PO SCH (09:23)
[2020-01-07] MEDS: NYSTATIN POWDER 100,000 UNITS/GM - 15 GM TOPICAL POWDER TP SCH (09:24)
[2020-01-07] MEDS: POLYETHYLENE GLYCOL 3350 119 GM BTL PO SCH (09:24)
--- NOTE | 2020-01-07 11:25 | PN ---
Progress Note (short form) - Note Progress Note: s: no chest pain, palps, dizziness, dyspnea. Current Medications Generic Name Dose Route Start Last Admin Trade Name Ajay PRN Reason Stop Dose Admin Nystatin 1 applic 01/01/20 10:00 01/07/20 09:24 Nystop Powder - TP 1 applic BID [facility] Administration Pantoprazole Sodium 40 mg 01/05/20 10:00 01/07/20 09:23 Protonix - PO 40 mg DAILY [facility] Administration Polyethylene Glycol 17 gm 12/30/19 10:15 01/07/20 09:24 Miralax (For Daily Use) - PO Not Given DAILY [facility] Vital Signs Period Temp Pulse Resp BP Sys/Anand Pulse Ox Last 24 Hr 97.7 F-98.3 F 68-83 18-20 118-152/53-84 96-100 Constitutional: Yes: No Distress Eyes: Yes: Conjunctiva Clear, EOM Intact Cardiovascular: Yes: Regular Rate and Rhythm Respiratory: Yes: Rhonchi, Other (diffuse mild rhonchi with decreased basilar breath sounds, no active wheezing) Gastrointestinal: Yes: Soft, Abdomen, Obese Edema: No Neurological: Yes: Alert, Oriented no jaundice, diaphoresis not agitated CBC, BMP 01/05/20 07:00 01/05/20 07:00 Assessment/Plan EKG:sinus tach, no ischemic changes CT chest: shine pneumonic infiltrates, mild bronchiectatic changes in lower lobes , cannot exclude congestion or chronic ILD elevated trop - EKG no ischemic changes - flat trend, indeterminate range, likely demand in setting of PNA, no signs acs - echo with nl lvef, no sig valve abnormalities - recommend nuclear stress as outpatient PNA, flu: - abx complete, ID following HTN: - cont home meds anemia: - manage per primary NSVT - nl EF here - replete lytes for K>4, Mg>2 abd pain - workup per GI, s/p egd
[2020-01-07 12:05] VITALS: TEMP 98
[2020-01-07 15:47] VITALS: BP 115/72; PULSE 87
== END 2020-01-07 18:05 | disposition home or self-care (01) | DRG 871 ==
LOC: JER 21:57 → JERBED 12-22 01:19 → J4S 12-22 22:50 → J5S 12-29 20:31
PROVIDERS: ADMIT Internal Medicine; ATTEND Internal Medicine
DX: A41.89 Other specified sepsis (principal); J11.08 Influenza due to unidentified influenza virus with specified pneumonia; J18.9 Pneumonia, unspecified organism; J96.00 Acute respiratory failure, unspecified whether with hypoxia or hypercapnia; I24.8 Other forms of acute ischemic heart disease; I10 Essential (primary) hypertension; M06.9 Rheumatoid arthritis, unspecified; D64.9 Anemia, unspecified; G89.29 Other chronic pain; M48.07 Spinal stenosis, lumbosacral region; R11.2 Nausea with vomiting, unspecified; K59.09 Other constipation; R10.11 Right upper quadrant pain; K80.20 Calculus of gallbladder without cholecystitis without obstruction; R10.13 Epigastric pain; R00.0 Tachycardia, unspecified; M54.5 Low back pain; K59.00 Constipation, unspecified; K44.9 Diaphragmatic hernia without obstruction or gangrene; K57.90 Diverticulosis of intestine, part unspecified, without perforation or abscess without bleeding; Z86.2 Personal history of diseases of the blood and blood-forming organs and certain disorders involving the immune mechanism
CPT/HCPCS: 36415; 71045-TC-FY; 71250-TC; 74177-TC; 74220-TC-FY; 76700-TC; 80048; 80053; 81003; 82550; 82607; 82784; 82962; 83036; 83690; 83735; 83880; 84100; 84484; 85025; 85027; 85610; 85651; 86162; 87040; 87086; 87184; 87633; 87804; 87899; 93005; 93010; 93306-TC; 94640; 94660; 94761; 97116-GP; 97161-GP; 99285-25; J0131; J3480; Q9967